=== PATIENT | male | born 1950 | race Caucasian/White ===

== ENCOUNTER → 2018-09-15 09:22 | Outpatient (CLI) | payer MEDICARE, SELFPAY ==
[2017-08-29 09:49] VITALS: BMI 27.2
[2018-09-15 10:25] LABS: Absolute Lymphocyte Count 1.43 X10^3/ul (0.83-4.51); Absolute Neutrophil Count 2.4 X10^3/uL (2.0-7.7); Basophil# 0.01 X10^3/uL; Basophil% 0.2 % (0-1); Eosinophil# 0.06 X10^3/uL; Eosinophils% 1.3 % (0-5); Hematocrit 44.7 % (40-54); Hemoglobin 15.1 g/dl (13.0-16.5); Lymphocyte # 1.43 X10^3/ul (4.0); Lymphocyte % 30.1 % (19-41); Mean Corp Hgb Conc 33.8 g/gl (32-36); Mean Corpuscular Volume 94.7 fL (80-94); Mean Platelet Vol. 9.6 fl (6.2-12.0); Monocyte# 0.81 X10^3/uL; Monocyte% 17.1 % (0-10); Neutrophil # 2.43 X10^3/uL (2.7-7.7); Neutrophil % 51.1 % (47-70); Platelet Count 91 K/mm3 (150-450); RBC Distribution Width CV 13.8 % (11.6-14.6); RBC Distribution Width SD 47.4 fl (35.1-43.9); Red Blood Count 4.72 M/mm3 (4.6-6.2); White Blood Count 4.8 K/mm3 (4.4-11.0)
[2018-09-15 10:27] LABS: POSITIVE COUNT NO; POSITIVE DIFFERENTIAL NO; POSITIVE MORPHOLOGY NO
[2018-09-15 10:54] LABS: AST(SGOT) 22 U/L (15-37); Alanine Aminotransfer ALT/SGPT 25 U/L (16-61); Albumin, Serum 3.2 g/dL (3.2-5.0); Alkaline Phosphatase 74 U/L (45-117); Anion Gap 6 (5-15); BUN 18 mg/dL (7-18); BUN/Creat Ratio 17.5 RATIO (10-20); Bilirubin, Direct 0.41 mg/dL (0.00-0.30); Calcium,Total 8.4 mg/dL (8.5-10.1); Chloride 105 mmol/L (98-107); Cholesterol 157 mg/dL (200); Creatinine, Serum 1.03 mg/dL (0.70-1.30); EST Glomerular Filtration Rate 77 mL/min (>60); Est Glom Filt Rate - Afr Amer 93 mL/min (>60); Globulin 3.6 g/dL (2.2-4.2); Glucose 90 mg/dL (74-106); High Density Lipoprotein 48 mg/dL; Potassium 4.7 mmol/L (3.5-5.1); Protein, Total 6.8 g/dL (6.4-8.2); Sodium Level 140 mmol/L (136-145); Triglycerides 91 mg/dL; Very Low Density Lipoprotein 18 mg/dL (5-40)
== END ==
PROVIDERS: Family Provider Family Medicine; PCP Family Medicine; Referring Provider Internal Medicine Cardiovascular Disease; Visit Provider Internal Medicine Cardiovascular Disease
DX: I10 Essential (primary) hypertension (principal); Z95.5 Presence of coronary angioplasty implant and graft; D69.6 Thrombocytopenia, unspecified; E78.5 Hyperlipidemia, unspecified; I25.10 Atherosclerotic heart disease of native coronary artery without angina pectoris; Z98.890 Other specified postprocedural states; Z86.79 Personal history of other diseases of the circulatory system; R55 Syncope and collapse; I48.0 Paroxysmal atrial fibrillation
CPT/HCPCS: 36415; 80048; 80061; 80076; 85025

== ENCOUNTER → 2019-10-08 06:35 | Outpatient (CLI) | payer MEDICARE, SELFPAY ==
[2018-09-17 10:00] VITALS: BMI 26.8
[2019-10-08 07:22] LABS: AST(SGOT) 21 U/L (15-37); Alanine Aminotransfer ALT/SGPT 26 U/L (16-61); Albumin, Serum 3.1 g/dL (3.2-5.0); Alkaline Phosphatase 70 U/L (45-117); Bilirubin, Direct 0.28 mg/dL (0.00-0.30); Cholesterol 181 mg/dL (200); Globulin 3.6 g/dL (2.2-4.2); High Density Lipoprotein 42 mg/dL; Protein, Total 6.7 g/dL (6.4-8.2); Triglycerides 123 mg/dL; Very Low Density Lipoprotein 25 mg/dL (5-40)
== END ==
PROVIDERS: PCP Family Medicine; Referring Provider Internal Medicine Cardiovascular Disease; Visit Provider Internal Medicine Cardiovascular Disease
DX: E78.00 Pure hypercholesterolemia, unspecified (principal)
CPT/HCPCS: 36415; 80061; 80076

== ENCOUNTER → 2021-02-16 07:31 | Outpatient (CLI) | payer MEDICARE, SELFPAY ==
[2020-03-27 10:26] VITALS: BMI 27.6
[2021-02-16 08:55] LABS: AST(SGOT) 19 U/L (15-37); Alanine Aminotransfer ALT/SGPT 24 U/L (16-61); Alkaline Phosphatase 65 U/L (45-117); Bilirubin, Direct 0.22 mg/dL (0.00-0.30); Cholesterol 172 mg/dL (200); Globulin 3.3 g/dL (2.2-4.2); High Density Lipoprotein 55 mg/dL; Protein, Total 6.3 g/dL (6.4-8.2); Triglycerides 57 mg/dL; Very Low Density Lipoprotein 11 mg/dL (5-40)
== END ==
PROVIDERS: PCP Family Medicine; Referring Provider Internal Medicine Cardiovascular Disease; Visit Provider Internal Medicine Cardiovascular Disease
DX: E78.00 Pure hypercholesterolemia, unspecified (principal)
CPT/HCPCS: 36415; 80061; 80076

== ENCOUNTER 2021-08-29 09:52 | Outpatient (CLI) | payer MEDICARE, SELFPAY ==
[2021-08-29 11:15] LABS: AST(SGOT) 19 U/L (15-37); Alanine Aminotransfer ALT/SGPT 28 U/L (16-61); Albumin, Serum 3.2 g/dL (3.2-5.0); Alkaline Phosphatase 79 U/L (45-117); Bilirubin, Direct 0.17 mg/dL (0.00-0.30); Cholesterol 182 mg/dL (200); Globulin 4.1 g/dL (2.2-4.2); High Density Lipoprotein 38 mg/dL; Protein, Total 7.3 g/dL (6.4-8.2); Triglycerides 114 mg/dL; Very Low Density Lipoprotein 23 mg/dL (5-40)
== END 2021-08-29 23:59 | disposition short-term general hospital (02) ==
PROVIDERS: PCP Family Medicine; Referring Provider Internal Medicine Cardiovascular Disease; Visit Provider Internal Medicine Cardiovascular Disease
DX: E78.00 Pure hypercholesterolemia, unspecified (principal)
CPT/HCPCS: 36415; 80061; 80076

== ENCOUNTER → 2022-03-25 | Outpatient (CLI) | payer MEDICARE, SELFPAY ==
[2022-03-25 11:00] LABS: AST(SGOT) 19 U/L (15-37); Alanine Aminotransfer ALT/SGPT 24 U/L (16-61); Albumin, Serum 3.2 g/dL (3.2-5.0); Alkaline Phosphatase 52 U/L (45-117); Bilirubin, Direct 0.24 mg/dL (0.00-0.30); Cholesterol 160 mg/dL (200); Globulin 3.5 g/dL (2.2-4.2); High Density Lipoprotein 43 mg/dL; Protein, Total 6.7 g/dL (6.4-8.2); Triglycerides 71 mg/dL; Very Low Density Lipoprotein 14 mg/dL (5-40)
== END | disposition home or self-care (01) ==
LOC: LAB 08:50
PROVIDERS: PCP Family Medicine; Referring Provider Nurse Practitioner Family; Visit Provider Nurse Practitioner Family
DX: E78.2 Mixed hyperlipidemia (principal)
CPT/HCPCS: 36415; 80061; 80076

== ENCOUNTER → 2022-03-27 | Outpatient (CLI) | payer MEDICARE, SELFPAY ==
--- NOTE | 2022-03-27 09:52 | STRESSREP ---
Stress Test Report Date: 03-27-2022 Procedure: Pharmacologic stress nuclear imaging study Indications: Chest pain; CAD; PCI; atrial fibrillation; status post EPS/RFA; hyperlipidemia; hypertension Consent: Per the patient Procedure: The patient underwent pharmacologic (Regadenoson 0.4mg ) evaluation with a peak heart rate of 77 beats per minute (51%predicted maximal heart rate) and a peak blood pressure of 150/82 mmHg. The baseline ECG demonstrated normal sinus rhythm. The peak pharmacologic ECG demonstrated no obvious ECG changes. There were no cardiac dysrhythmias pretest, during pharmacologic infusion, or recovery. There was no complaint of chest discomfort during pharmacologic infusion or recovery. The examination was discontinued secondary to completion of protocol. Impression: 1. Pharmacologic (Regadenoson) evaluation 2. Peak pharmacologic ECG with no obvious ECG changes. 3. There were no cardiac dysrhythmias pretest, during pharmacologic infusion, or recovery. 4. Nuclear images pending Myocardial perfusion imaging study: Technique: The patient was injected with 11.5 millicuries of technetium 99m Cardiolite and subsequently rest SPECT Cardiolite nuclear imaging was obtained in the horizontal long, vertical long, and short axis views. The patient underwent pharmacologic (Regadenoson) evaluation with a peak heart rate of 77 beats per minute (51% percent predicted maximal heart rate) and a peak blood pressure of 150/82 mmHg. The patient was injected with 33.8 millicuries of technetium 99m Cardiolite and subsequently stress SPECT Cardiolite nuclear imaging was obtained in the horizontal long, vertical long, and short axis views. A gated Cardiolite study at peak stress was obtained. Interpretation: Rest and stress SPECT Cardiolite nuclear imaging status post realignment, normalization, and attenuation correction demonstrate the appearance of extracardiac/gastrointestinal tracer uptake in inferior segments and otherwise relative uniform tracer uptake and myocardial perfusion appearing within normal limits. There is end systolic thickening and brightening. The gated Cardiolite study demonstrates myocardial thickening and inward wall motion. The reported LVEF is 58%. Impression: 1. Rest and stress SPECT Cardiolite nuclear imaging demonstrate myocardial perfusion changes compatible with effects of extracardiac/gastrointestinal tracer uptake and otherwise appear to demonstrate relative uniform tracer uptake and myocardial perfusion appearing within normal limits. 2. The gated Cardiolite study reports an LVEF of 58%. This note was generated with [employer] software. It may contain incorrect words, spelling, and punctuation that were not noted in checking the note before signing.
== END | disposition home or self-care (01) ==
LOC: CVS 06:01
PROVIDERS: PCP Family Medicine; Referring Provider Nurse Practitioner Family; Visit Provider Nurse Practitioner Family
DX: R07.9 Chest pain, unspecified (principal); E78.2 Mixed hyperlipidemia; I25.10 Atherosclerotic heart disease of native coronary artery without angina pectoris
CPT/HCPCS: 78452; 93017; A9500; A4216; J2785

== ENCOUNTER → 2022-10-26 | Outpatient (CLI) | payer MEDICARE, SELFPAY ==
[2022-10-26 10:17] LABS: AST(SGOT) 19 U/L (15-37); Alanine Aminotransfer ALT/SGPT 24 U/L (16-61); Albumin, Serum 3.2 g/dL (3.2-5.0); Alkaline Phosphatase 57 U/L (45-117); Bilirubin, Direct 0.16 mg/dL (0.00-0.30); Cholesterol 183 mg/dL (200); Globulin 3.5 g/dL (2.2-4.2); High Density Lipoprotein 49 mg/dL; Protein, Total 6.7 g/dL (6.4-8.2); Triglycerides 65 mg/dL; Very Low Density Lipoprotein 13 mg/dL (5-40)
== END | disposition home or self-care (01) ==
LOC: LAB 08:39
PROVIDERS: PCP Family Medicine; Visit Provider Nurse Practitioner Family
DX: E78.2 Mixed hyperlipidemia (principal)
CPT/HCPCS: 36415; 80061; 80076

== ENCOUNTER → 2024-09-08 | Outpatient (CLI) | payer MEDICARE, SELFPAY ==
[2024-09-08 11:57] LABS: AST(SGOT) 21 U/L (15-37); Alanine Aminotransfer ALT/SGPT 20 U/L (16-61); Albumin, Serum 3.2 g/dL (3.2-5.0); Alkaline Phosphatase 67 U/L (45-117); Bilirubin, Direct 0.27 mg/dL (0.00-0.30); Cholesterol 143 mg/dL (200); Globulin 3.8 g/dL (2.2-4.2); High Density Lipoprotein 57 mg/dL; Triglycerides 64 mg/dL; Very Low Density Lipoprotein 13 mg/dL (5-40)
== END | disposition home or self-care (01) ==
LOC: LAB 09:37
PROVIDERS: PCP Family Medicine; Referring Provider Nurse Practitioner Family; Visit Provider Nurse Practitioner Family
DX: E78.2 Mixed hyperlipidemia (principal); I25.10 Atherosclerotic heart disease of native coronary artery without angina pectoris
CPT/HCPCS: 36415; 80061; 80076

== ENCOUNTER → 2025-02-22 | Outpatient (CLI) | payer MEDICARE, SELFPAY ==
[2025-02-22 09:08] LABS: AST(SGOT) 21 U/L (<=37); Alanine Aminotransfer ALT/SGPT 15 U/L (<=46); Albumin, Serum 3.6 g/dL (3.4-4.8); Alkaline Phosphatase 68 U/L (40-129); Bilirubin, Direct 0.28 mg/dL (0.00-0.30); Cholesterol 141 mg/dL (<=200); Globulin 3.1 g/dL (2.2-4.2); Low Density Lipoprotein Calc. 79 mg/dL; Triglycerides 74 mg/dL; Very Low Density Lipoprotein 15 mg/dL (5-40); cholesterol:hdl ratio screen 2.99
--- OUTSIDE RECORDS SUMMARY | 2025-02-24 02:57 | XMS RPT_ITS | CCD ---
Author Organization [facility] CliniSyvt Care Team Providers Care Slip Cover Sewer Name Role Phone ARNOL Cm, Barb Burgos Unavailable Perla Arroyo Unavailable Unavailable Exten, Felipe E Unavailable Unavailable Exten, Felipe E Unavailable Unavailable Exten, Felipe E Unavailable Unavailable Exten, Felipe E Unavailable Unavailable Perla Arroyo Primary Care Provider Perla Arroyo Primary Care Provider Perla Arroyo DO Primary Care Provider Lewellen TUBE ROOM CASHIER, Pepe L Unavailable DeFinis, Harumi Y Unavailable Unavailable Martha Walter Unavailable Unavailable Martha Walter Unavailable Unavailable Tray Nathan MD Unavailable Perla Arroyo DO Primary Care Provider Lewellen TUBE ROOM CASHIER, Pepe L Unavailable Lewellen TUBE ROOM CASHIER, Pepe L Unavailable Dr. Perla Arroyo Primary Care Provider [phone] Dr. Perla Arroyo Referring Provider [phone] Roof [employer] DEAN, ARTS AND SCIENCES DEAN-C Sampson Gonzalez Attending Provider Roof [employer] DEAN, ARTS AND SCIENCES DEAN-C Sampson Gonzalez Referring Provider Roof [employer] DEAN, ARTS AND SCIENCES DEAN-C Sampson Gonzalez Other Provider Dr. Tray Nathan Attending Provider Dr. Perla Arroyo Primary Care Provider Barb Hamilton Attending Provider Unavailable Dr. Perla Arroyo Referring Provider Dr. Tray Nathan Attending Provider Lewellen TUBE ROOM CASHIER, Pepe L Unavailable [phone] Facundo TUBE ROOM CASHIER, Pepe L Unavailable [phone] Perla Arroyo DO Primary Care Provider PERLA ARROYO Primary Care Unavailable FACUNDO PEPE Jeronimo Referring Unavailable CRUZ, PERLA BENITEZ Primary Care Unavailable CRUZ, PERLA BENITEZ Primary Care Unavailable CRUZ, PERLA BENITEZ Primary Care Unavailable ERLIN ALCARAZ Attending Unavailable CRUZ, PERLA BENITEZ Primary Care Unavailable CRUZ, PERLA BENITEZ Primary Care Unavailable FACUNDOTYLER TAYLORMY L Attending Unavailable MORENITA ZHENG Attending Unavailable CRUZ, PERLA BENITEZ Primary Care Unavailable Cruz, Perla Referring Unavailable Barb Kay Attending Unavail able Cruz, Perla Primary Care Unavailable Cruz, Perla Referring Unavailable Barb Kay Attending Unavail able Perla Arroyo Primary Care Unavailable Cruz, Perla Referring Unavailable Barb Kay Attending Unavail able Perla Arroyo Primary Care Unavailable Natalie [employer] SCIENC[employer] DEANSampson Attending Unavailable Natalie [employer] SCIENCES DEANSampson Referring Unavailable Perla Arroyo Primary Care Unavailable Dr. Perla Arroyo DO Primary Care Provider Dr. Perla Arroyo DO Referring Provider Barb Kay Attending Provider [phone] Natalie SANZ-Sampson Travis Attending Provider Sampson Castillo Referring Provider Sivakumar SANZ-Suzie Travis Attending Provider Allergies Allergy Classification Reported Allergen(s) Allergy Type Date of Onset Reaction(s) Facility HMG-CoA Reductase Inhibitors (statins) (4 sources) atorvastatin Drug Allergy 0 Unknown [facility] Penicillins (antibiotic) (2 sources) Penicillins Drug Allergy 8 Rash [facility] (6 sources) atorvastatin Drug Allergy 1 Muscle pain [facility] Work Phone: [phone] (12 sources) penicillin Drug Allergy 1 Breaks out with a rash [facility] Work Phone: (6 sources) simvastatin Drug Allergy 1 Muscle pain [facility] Work Phone: (10 sources) Penicillins; Translations: [PENICILLINS] Propensity to adverse reactions to drug 8 [facility] (13 sources) atorvastatin; Translations: [ATORVASTATIN] Drug Allergy 0 Unknown [facility] (1 source) Penicillins Propensity to adverse reactions to drug 8 [facility] (16 sources) Simvastatin; Translations: [SIMVASTATIN] Drug Allergy 0 Unknown [facility] (5 sources) Penicillins Propensity to adverse reactions to drug 8 [facility] (4 sources) atorvastatin; Translations: [atorvastatin calcium] Drug Allergy 2 Unknown, Severe Myalgias and joint pain hips and shoulders [facility] (3 sources) Pravastatin Drug Allergy 2 Nausea, headaches, Muscle and joint pain in shoulders and hips, headaches [facility] (5 sources) Penicillins Propensity to adverse reactions to drug 8 [facility] (1 source) Penicillins Drug allergy (disorder) 5 [facility] (1 source) Pravastatin Drug Allergy 5 [facility] (1 source) Simvastatin Drug Allergy 5 [facility] Medications Current Medications Medication Drug Class(es) Dates Sig (Normalized) Sig (Original) glucosamine 500 mg oral tablet (2 sources) Start: 08-15-2005 take 1 capsule by mouth once daily, then take 500-400 capsules by mouth glucosamine-chondr oit-vit C-Mn (GLUCOSAMINE CHONDROITIN MAXSTR) 500-400 mg cap Take 500 mg by mouth daily. 08/15/2005 Active glucosamine-chondr oit-vit C-Mn (GLUCOSAMINE CHONDROITIN MAXSTR) 500-400 mg cap (5 sources) Start: 08-15-2005 take 1 capsule by mouth once daily glucosamine-chondr oit-vit C-Mn (GLUCOSAMINE CHONDROITIN MAXSTR) 500-400 mg cap Take 500 mg by mouth daily. 0 08/15/2005 Active lisinopril 10 mg oral tablet (20 sources) Angiotensin Converting Enzyme Inhibitor Start: 11-11-2024 take 1 tablet by mouth once daily Lisinopril 10 mg tablet Active 10 mg PO daily 90 3 November 11, 2024 9:51am Start: 09-09-2024 End: 11-11-2024 take 1 tablet by mouth once daily Lisinopril 2.5 mg tablet Discontinued 2.5 mg PO daily 90 3 September 09, 2024 1:00am November 11, 2024 9:51am Start: 08-31-2021 End: 09-09-2023 take 2 tablets by mouth once daily Lisinopril 20 mg tablet Discontinued 40 mg PO DAILY 180 April 08, 2022 1:23pm September 09, 2023 2:33pm Start: 08-31-2021 End: 04-08-2022 take 40 mg by mouth once daily Lisinopril Active 40 MG PO DAILY 180 April 08, 2022 1:23pm Start: 02-16-2021 End: 08-31-2021 take 1 tablet by mouth twice daily Lisinopril 20 mg tablet Discontinued 20 mg PO TWICE A DAY 180 March 28, 2021 3:54pm August 31, 2021 10:05am Start: 03-27-2020 End: 02-16-2021 take 1 tablet by mouth once daily Lisinopril 20 mg tablet Discontinued 20 mg PO DAILY 90 March 27, 2020 10:51am February 16, 2021 11:56am Start: 01-30-2020 take 2 tablets by mo uth once daily lisinopriL (PRINIVIL,ZESTRIL) 10 MG tablet Take 2 (two) tablets (20 mg total) by mouth daily . 0 01/30/2020 Active Start: 10-08-2019 End: 03-27-2020 take 1 tablet by mouth once daily Lisinopril 10 mg tablet Discontinued 10 mg PO DAILY 30 October 08, 2019 1:00am March 27, 2020 10:52am Start: 03-02-2012 End: 08-30-2014 take 1 tablet by mouth once daily LISINOPRIL 2.5 MG TABS One tablet by mouth daily LISINOPRIL [id number] Barb Cm PA-C Start: 08-29-2011 End: 11-19-2011 take 1 tablet by mouth once daily LISINOPRIL 2.5 MG TABS One tablet by mouth daily LISINOPRIL [id number] Regino Abdalla metoprolol tartrate 25 mg oral tablet (20 sources) beta-Adrenergic Zakia Start: 12-08-2024 End: 12-08-2024 take 1 tablet by mouth twice daily metoprolol tartrate (LOPRESSOR) 25 MG tablet Take 1 (one) tablet (25 mg total) by mouth 2 (two) times a day . 180 tablet 3 12/08/2024 Active Start: 01-26-2024 take 1 tablet by gilberto th once daily Metoprolol Succinate 25 mg tablet extended release 24 hr Active 25 mg PO DAILY 90 3 January 26, 2024 10:52am Start: 03-08-2019 End: 02-04-2023 metoprolol succinate (TOPROL -XL) 25 MG 24 hr tablet Start: 05-21-2018 End: 09-09-2023 take 1 tablet by mouth once daily Metoprolol Succinate 25 mg tablet extended release 24 hr Discontinued 25 mg PO DAILY 90 December 24, 2022 9:12am September 09, 2023 2:33pm Start: 11-24-2015 End: 08-29-2017 take 1 tablet by mouth once daily Metoprolol Succinate 25 MG tablet Discontinued 25 mg PO DAILY 30 0 November 24, 2015 12:00am August 29, 2017 11:19am Start: 03-17-2014 End: 03-28-2014 take 1 tablet by mouth once daily TOPROL XL 25 MG [id number] One tablet by mouth daily METOPROLOL SUCCINATE [id number] Tray Nathan MD Start: 03-02-2012 End: 03-08-2013 take 1 tablet by mouth twice daily TOPROL XL 50 MG [id number] (ER) One tablet by mouth twice daily METOPROLOL SUCCINATE [id number] Wiley Dailey MD Start: 08-29-2011 End: 11-19-2011 take 1 tablet by mouth twice daily METOPROLOL SUCCINATE ER 50 MG [id number] One tablet by mouth twice daily METOPROLOL SUCCINATE [id number] Regino Abdalla Start: 03-11-2011 take 1 tablet by gilberto th once daily METOPROLOL SUCCINATE ER 50 MG [id number] One tablet by mouth daily METOPROLOL SUCCINATE [id number] Flor Harper take 1 tablet by gilberto once daily metoprolol tartrate (LOPRESSOR) 25 MG tablet Take 1 (one) tablet (25 mg total) by mouth once daily . Active Completed/Discontinued Medications Medication Drug Class(es) Dates Sig (Normalized) Sig (Original) amLODIPine 5 mg oral tablet (7 sources) Dihydropyridine Calcium Channel Zakia Start: 02-04-2023 End: 01-29-2024 take 1 tablet by mouth once daily amLODIPine (NORVASC) 5 MG tablet Take 1 (one) tablet (5 mg total) by mouth daily . 90 tablet 3 02/04/2023 01/29/2024 Discontinued (Patient's Request) Start: 02-21-2022 End: 10-28-2022 take 1 tablet by mouth once daily Amlodipine 2.5 mg tablet Discontinued 2.5 mg PO DAILY 17 07February 21, 2022 12:00am October 28, 2022 2:24pm Start: 08-31-2021 End: 02-21-2022 take 1 tablet by mouth once daily Amlodipine 5 mg tablet Discontinued 5 mg PO DAILY 17 07August 31, 2021 1:00am February 21, 2022 8:39am Antiarthritic Combination No.2 (2 sources) Start: 11-23-2015 End: 02-21-2022 take 1 tablet by mouth once daily Antiarthritic Combination No.2 Discontinued 1 TABLET PO DAILY November 23, 2015 12:00am February 21, 2022 8:40am Antiarthritic Combination No.2 900 MG tablet (1 source) Start: 11-23-2015 End: 02-21-2022 take 1 tablet by mouth once daily Antiarthritic Combination No.2 900 MG tablet Discontinued 1 {tbl} PO DAILY November 23, 2015 12:00am February 21, 2022 8:40am aspirin 81 mg delayed release oral tablet (20 sources) Platelet Aggregation Inhibitor, Nonsteroidal Anti-inflammatory Drug Start: 01-28-2011 End: 11-19-2011 take 1 tablet by mouth once daily ECOTRIN LOW STRENGTH 81 MG TBEC One tablet by mouth daily ASPIRIN [id number] Regino Abdalla End: 01-05-2013 take 1 tablet by mouth once daily ASPIRIN 325 MG TABS One tablet by mouth daily ASPIRIN [id number] Shruthi Bunch RN End: 03-08-2013 take 1 tablet by mouth once daily ASPIRIN 81 MG TABS One tablet by mouth daily ASPIRIN [id number] Shaista Caraballo MD GLUCOSAMINE-CHONDROITIN CAPS (10 sources) Start: 02-28-2014 take 1 tablet by mouth once daily GLUCOSAMINE-CHONDROITIN CAPS One tablet by mouth daily GLUCOSAMINE-CHONDROITIN CAPS [id number] Jyotsna Ramirez RN Start: 02-28-2014 take 1 tablet by gilberto th once daily GLUCOSAMINE-CHONDROITIN CAPS One tablet by mouth daily GLUCOSAMINE-CHONDROITIN CAPS [id number] Jyotsna Ramirez RN Start: 08-15-2005 End: 01-29-2024 take 1 capsule by mouth once daily [id number] C-Mn 500-400 m g cap Take 500 mg by mouth daily. 0 08/15/2005 01/29/2024 Discontinued (Patient's Request) cyanocobalamin/folic ac/vit B6 (FOLIC ACID-VIT B6-VIT B12 ORAL) (11 sources) End: 01-29-2024 cyanocobalamin/folic ac/vit B6 (FOLIC ACID-VIT B6-VIT B12 ORAL) Take by mouth once daily. 0 01/29/2024 Discontinued (Patient's Request) cyanocobalamin/f olic ac/vit B6 (FOLIC ACID-VIT B6-VIT B12 ORAL) Take by mouth once daily. 0 Active cyanocobalamin/f olic ac/vit B6 (FOLIC ACID-VIT B6-VIT B12 ORAL) Take by mouth once daily. Active ezetimibe 10 mg oral tablet (20 sources) Dietary Cholesterol Absorption Inhibitor Start: 05-26-2024 End: 05-26-2025 take 1 mg by mouth once daily Ezetimibe 10 mg tablet Discontinued mg PO DAILY September 09, 2024 1:00am September 09, 2024 11:13am Start: 01-28-2011 End: 08-31-2021 take 1 tablet by mouth at bedtime Ezetimibe 10 mg tablet Discontinued 10 mg PO AT BEDTIME 90 3 September 02, 2018 1:56pm October 08, 2019 10:25am fenofibrate 54 mg oral tablet (8 sources) Peroxisome Proliferator Receptor alpha Agonist Start: 02-21-2022 End: 01-29-2024 take 1 tablet by mouth once daily fenofibrate 54 MG tablet Take 1 (one) tablet (54 mg total) by mouth daily . 0 12/24/2022 01/29/2024 Discontinued (Patient's Request) ferrous sulfate (12 sources) Start: 03-11-2011 End: 08-29-2011 FERROUS SULFATE 324 MG TABS One tablet by mouth three X daily FERROUS SULFATE Wiley Dailey MD Start: 03-11-2011 FERROUS SULFAT E 324 MG TABS One tablet by mouth three X daily FERROUS SULFATE Flor Harper Start: 03-11-2011 End: 08-29-2011 FERROUS SULFATE 324 MG TABS One tablet by mouth three X daily FERROUS SULFATE Flor Harper fluticasone propionate 0.05 mg/actuat metered dose nasal spray (12 sources) Corticosteroid End: 03-08-2013 take 2 spray(s) nasal route once daily FLONASE 50 MCG/ACT SUSP 2 sprays each nostril qd FLUTICASONE PROPIONATE [id number] Heather Murillo LPN folic acid 1 mg oral tablet (3 sources) Start: 11-23-2015 End: 09-17-2018 take 2 tablets by mouth once daily Folic Acid 1 MG tablet Discontinued 2 mg PO DAILY@08November 23, 2015 12:00am September 17, 2018 10:58am Start: 11-23-2015 End: 09-17-2018 take 2 mg by mouth once daily Folic Acid Discontinued 2 MG PO DAILY@799November 23, 2015 12:00am September 17, 2018 10:58am folic acid 2.2 mg / vitamin b12 1 mg / vitamin b6 25 mg oral tablet (15 sources) Vitamin B12 Start: 09-17-2018 End: 10-28-2022 Folic Acid-Vit B6-Vit B12 (Folgard Rx) 2.2-25-1 mg tablet Discontinued 1 {tbl} PO DAILY September 17, 2018 1:00am October 28, 2022 2:23pm Start: 02-28-2014 take 1 tablet by gilberto once daily FOLGARD TABS One tablet by mouth daily FOLIC [id number] Jyotsna Ramirez RN Start: 02-28-2014 take 1 tablet by gilberto th once daily FOLGARD TABS One tablet by mouth daily FOLIC [id number] Judith Ashley RN take 1 tablet by gilberto th once daily FOLGARD TABS 1 po qd FOLIC [id number] Heather Murillo LPN hydroCHLOROthiazide 12.5 mg oral tablet (9 sources) Thiazide Diuretic Start: 05-04-2024 End: 05-04-2025 take 1 tablet by mouth once daily Hydrochlorothiazide 12.5 mg tablet Discontinued 12.5 mg PO DAILY November 11, 2024 9:22am November 11, 2024 9:54am 24 hr isosorbide mononitrate 30 mg extended release oral tablet (12 sources) Nitrate Vasodilator Start: 01-28-2011 End: 03-08-2013 take 1 tablet by mouth once daily ISOSORBIDE MONONITRATE ER 30 MG [id number] One tablet by mouth daily (Imdur) ISOSORBIDE MONONITRATE [id number] Wiley Dailey MD itraconazole 200 mg oral tablet (2 sources) Azole Antifungal Start: 03-09-2020 End: 02-01-2021 take 1 tablet by mouth once daily itraconazole 200 mg Tab Indications: Acute myeloid leukemia in remission (HCC) Take 200 mg by mouth daily . 30 tablet 2 03/09/2020 02/01/2021 Discontinued (Patient's Request) mometasone furoate 0.05 mg/actuat metered dose nasal spray (12 sources) Corticosteroid End: 03-08-2013 take 2 spray(s) nasal route once daily NASONEX 50 MCG/ACT SUSP 2 sprays each nostril qd MOMETASONE FUROATE [id number] Shaista Caraballo MD montelukast 10 mg oral tablet (20 sources) Leukotriene Receptor Antagonist Start: 10-28-2022 End: 01-29-2024 take 1 tablet by mouth once daily as needed montelukast (SINGULAIR) 10 mg tablet TAKE 1 TABLET BY MOUTH ONCE DAILY NEEDED FOR ALLERGIES 0 01/19/2023 01/29/2024 Discontinued (Patient's Request) Start: 08-04-2015 End: 02-28-2017 take 1 tablet by mouth once daily MONTELUKAST SODIUM 10 MG TABS One tablet by mouth daily MONTELUKAST SODIUM [id number] Perla Arroyo DO Start: 01-16-2015 End: 02-27-2015 take 1 tablet by mouth once daily as needed MONTELUKAST SODIUM 10 MG TABS One tablet by mouth daily as needed MONTELUKAST SODIUM [id number] Tray Nathan MD End: 03-08-2013 take 1 tablet by mouth once daily as needed SINGULAIR 10 MG TABS 1 po daily prn MONTELUKAST SODIUM [id number] Shaista Caraballo MD moxifloxacin 400 mg oral tablet (18 sources) Quinolone Antimicrobial Start: 08-16-2015 End: 08-30-2015 take 1 tablet by mouth once daily AVELOX 400 MG TABS One tablet by mouth daily MOXIFLOXACIN HCL [id number] Perla Lan Cruz BERGMAN Start: 08-04-2015 End: 08-14-2015 take 1 tablet by mouth once daily AVELOX 400 MG TABS One tablet by mouth daily MOXIFLOXACIN HCL [id number] Perla Lan Cruz DO nebivolol 5 mg oral tablet (12 sources) End: 03-02-2012 take 1 tablet by mouth once daily in the morning BYSTOLIC 5 MG TABS One tablet by mouth daily in AM NEBIVOLOL HCL [id number] Wiley Dailey MD 24 hr niacin 500 mg extended release oral tablet (20 sources) Nicotinic Acid Start: 09-02-2018 End: 08-31-2021 take 1 tablet by mouth every twenty-four hours at bedtime Niacin 500 mg tablet extended release 24 hr Discontinued 500 mg PO AT BEDTIME 90 3 September 02, 2018 2:00pm August 31, 2021 10:05am Start: 08-23-2013 take 1 tablet by gilberto th once daily NIASPAN 500 MG CR-TABS One tablet by mouth daily NIACIN (ANTIHYPERLIPIDEMIC) [id number] Tray Nathan MD Start: 01-28-2011 End: 03-08-2013 take 1 tablet by mouth once daily NIASPAN 500 MG CR-TABS One tablet by mouth daily NIACIN (ANTIHYPERLIPIDEMIC) [id number] Tray Nathan MD Start: 01-28-2011 End: 08-31-2021 take 1 tablet by mouth at bedtime Niacin 500 MG tablet Discontinued 500 mg PO AT BEDTIME March 14, 2014 12:00am September 02, 2018 2:04pm nitroglycerin 0.4 mg sublingual tablet (20 sources) Nitrate Vasodilator Start: 10-28-2022 nitroGLYCE RIN (NITROSTAT) 0.4 MG SL tablet TAKE 1 TABLET SUBLINGUALLY EVERY 5 TO 15 MINUTES NEEDED FOR CHEST PAIN 10/28/2022 Active Start: 08-29-2017 End: 09-09-2023 Nitroglycerin 0.4 mg tablet, sublingual Discontinued 0.4 mg SL every 5 to 15 minutes as needed for chest pain 12 10October 28, 2022 2:24pm September 09, 2023 2:33pm Start: 08-29-2017 End: 10-28-2022 Nitroglycerin Active 0.4 MG SL every 5 to 15 minutes October 28, 2022 2:24pm Start: 06-13-2016 NITROSTAT 0.4 MG SUBL 1 tablet under tongue every 5 min up to 3 X NITROGLYCERIN [id number] Barb Cm PA-C Start: 01-28-2011 End: 11-19-2011 NITROSTAT 0.4 MG SUBL 1 tabl et under tongue every 5 min up to 3 X NITROGLYCERIN [id number] Regino Abdalla omeprazole 20 mg delayed release oral capsule (12 sources) Proton Pump Inhibitor Start: 03-11-2011 End: 11-19-2011 take 1 tablet by mouth twice daily PRILOSEC 20 MG CPDR One tablet by mouth twice daily until 03-01-11 OMEPRAZOLE [id number] Regino Abdalla pravastatin sodium 40 mg oral tablet (20 sources) HMG-CoA Reductase Inhibitor Start: 08-31-2021 End: 01-23-2022 take 1 tablet by mouth once daily Pravastatin 40 mg tablet Discontinued 40 mg PO DAILY 30 August 31, 2021 1:00am January 23, 2022 9:45am Start: 01-28-2011 End: 08-31-2021 take 1 tablet by mouth at bedtime Pravastatin 80 mg tablet Discontinued 80 mg PO AT BEDTIME 90 September 02, 2018 2:04pm October 08, 2019 10:25am predniSONE 20 mg oral tablet (12 sources) End: 03-08-2013 PREDNISONE 20 MG TABS PREDNISONE [id number] Heather Murillo LPN ramipril 2.5 mg oral capsule (20 sources) Angiotensin Converting Enzyme Inhibitor Start: 11-19-2011 End: 03-02-2012 take 1 tablet by mouth once daily in the morning RAMIPRIL 2.5 MG CAPS One tablet by mouth daily in AM RAMIPRIL [id number] Regino Abdalla Start: 01-28-2011 End: 11-19-2011 take 1 tablet by mouth once daily ALTACE 1.25 MG CAPS One tablet by mouth daily RAMIPRIL [id number] Flor Harper SOTALOL HCL (12 sources) Antiarrhythmic Start: 01-28-2011 End: 08-29-2011 take 1 tablet by mouth twice daily SOTALOL HCL 160 MG TABS One tablet by mouth twice daily SOTALOL HCL [id number] Wiley Dailey MD Start: 01-28-2011 take 1 tablet by gilberto twice daily SOTALOL HCL 160 MG TABS One tablet by mouth twice daily SOTALOL HCL [id number] Flor Harper Start: 01-28-2011 End: 08-29-2011 take 1 tablet by mouth twice daily SOTALOL HCL 160 MG TABS One tablet by mouth twice daily SOTALOL HCL [id number] Flor Harper tadalafil 10 mg oral tablet (20 sources) Phosphodiesterase 5 Inhibitor End: 03-08-2013 take 1 tablet by mouth once daily CIALIS 20 MG TABS 1 po qd TADALAFIL [id number] Heather Murillo LPN End: 03-08-2013 take 1 tablet by mouth once daily CIALIS 10 MG TABS 1 po qd TADALAFIL [id number] Heather Murillo POLE CUTTER traZODone hydrochloride 50 mg oral tablet (12 sources) Serotonin Reuptake Inhibitor End: 03-08-2013 take 1 tablet by mouth once at bedtime TRAZODONE HCL 50 MG TABS 1 po q hs TRAZODONE HCL [id number] Heather L Chidi POLE CUTTER 0.65 ml varicella-zoster virus vaccine live (oka-merck) strain [id number] unt/ml injection (4 sources) Start: 08-04-2015 End: 06-13-2016 ZOSTAVAX 24850 UNT/0.65ML SUSR One Injection for shingles prevention to be given at pharmacy ZOSTER VACCINE LIVE [id number] Barb Cm PA-C Vit D3-Folic Stjg-F8-D1-B12 (Folgard) 2,000-800-0.32 unit-mcg-mg tablet (1 source) Start: 08-29-2017 End: 08-29-2017 Vit D3-Folic Xava-Q5-M7-B12 (Folgard) 2,000-800-0.32 unit-mcg-mg tablet Discontinued 1 {tbl} PO daily August 29, 2017 1:00am August 29, 2017 11:19am vit D3-folic acid-vit B2-B6-B12 2,000 unit-800 mcg-0.32 mg tablet (2 sources) Start: 08-29-2017 End: 08-29-2017 take 1 tablet by mouth once daily vit D3-folic acid-vit B2-B6-B12 2,000 unit-800 mcg-0.32 mg tablet Discontinued 1 TABLET PO daily August 29, 2017 1:00am August 29, 2017 11:19am warfarin sodium 1 mg oral tablet (20 sources) Vitamin K Antagonist Start: 01-28-2011 End: 08-29-2011 WARFARIN SODIUM 1 MG TABS take as directed WARFARIN SODIUM [id number] Jyotsna Ramirez RN Start: 01-28-2011 End: 08-29-2011 COUMADIN 3 MG TABS Take as d irected WARFARIN SODIUM [id number] Wiley Dailey MD Start: 01-28-2011 End: 08-29-2011 COUMADIN 4 MG TABS Take as d irected WARFARIN SODIUM [id number] Wiley Dailey MD Problems Active Problems Problem Classification Problem Date Documented Date Episodic/Chronic Cardiac dysrhythmias (20 sources) Atrial fibrillation; Translations: [Paroxysmal atrial fibrillation] Onset: 01-28-2011 01-28-2011 Chronic Coagulation and hemorrhagic disorders (20 sources) Thrombocytopenic disorder; Translations: [Platelet count below reference range] Onset: 03-08-2013 03-09-2013 Chronic Coronary atherosclerosis and other heart disease (20 sources) Coronary arteriosclerosis; Translations: [Coronary atherosclerosis] Onset: 01-28-2011 Resolved: 01-16-2015 01-28-2011 Chronic Comment on above: status post stent PTCA and bare metal stent to LAD December 2008 Disorders of lipid metabolism (20 sources) Hyperlipidemia; Translations: [Hyperlipidemia, unspecified] Onset: 06-30-2012 Resolved: 01-16-2015 06-30-2012 Chronic Essential hypertension (20 sources) Hypertensive disorder; Translations: [Essential (primary) hypertension] Onset: 01-28-2011 01-28-2011 Chronic Fluid and electrolyte disorders (8 sources) Hyperkalemia; Translations: [Hyperkalemia] Onset: 01-29-2024 02-04-2023 Episodic Hepatitis (1 source) Chronic hepatitis C; Translations: [Chronic viral hepatitis C] 02-04-2023 Chronic Leukemias (20 sources) Acute myeloid leukemia in remission; 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, in remission] Onset: 08-18-1980 Chronic Nonspecific chest pain (18 sources) Precordial pain; Translations: [Precordial pain] Onset: 01-28-2011 Resolved: 01-16-2015 01-16-2015 Episodic Other liver diseases (1 source) Inflammatory disease of liver; Translations: [Inflammatory liver disease, unspecified] 05-04-2024 Chronic Other liver diseases (2 sources) Inflammatory liver disease, unspecified; Translations: [Inflammatory liver disease, unspecified] Onset: 05-04-2024 Chronic Other nutritional; endocrine; and metabolic disorders (6 sources) Hyperbilirubinemia; Translations: [Other disorders of bilirubin metabolism] Onset: 03-08-2013 03-09-2013 Chronic Other upper respiratory disease (6 sources) Allergic rhinitis; Translations: [Allergic rhinitis, unspecified] Onset: 01-16-2015 01-16-2015 Chronic Residual codes; unclassified (5 sources) History of radiofrequency ablation operation for arrhythmia; Translations: [Other specified postprocedural states] 08-29-2017 Episodic Comment on above: December 2008 EP; Ablatio n of a-fib flutter 04/17/[address] Siddiqui @ [facility] Residual codes; unclassified (2 sources) Other specified postprocedural states; Translations: [Personal history of surgery to heart and great vessels, presenting hazards to health] Episodic Syncope (15 sources) Syncope and collapse; Translations: [Syncope and collapse] Onset: 01-28-2011 Resolved: 01-16-2015 01-28-2011 Episodic Unclassified (2 sources) Long-term drug therapy; Translations: [Other business planner (current) drug therapy] Onset: 01-28-2011 01-28-2011 Past or Other Problems Problem Classification Problem Date Documented Da te Episodic/Chronic Abdominal hernia (12 sources) Inguinal hernia; Translations: [Unilateral inguinal hernia, without obstruction or gangrene, not specified as recurrent] Onset: 11-19-2011 Resolved: 12-02-2011 11-19-2011 Episodic Cardiac dysrhythmias (12 sources) Palpitations; Translations: [Palpitations] Onset: 01-28-2011 Resolved: 01-16-2015 01-28-2011 Episodic Coronary atherosclerosis and other heart disease (13 sources) Coronary angioplasty status; Translations: [Percutaneous transluminal coronary angioplasty status] Onset: 08-18-2008 01-28-2011 Episodic Comment on above: PTCA/BMS to LAD December 2008 Malaise and fatigue (14 sources) Fatigue; Translations: [Other fatigue] Onset: 01-30-2023 01-30-2023 Episodic Other aftercare (4 sources) Long-term drug therapy; Translations: [Other business planner (current) drug therapy] Onset: 01-28-2011 01-28-2011 Episodic Other circulatory disease (6 sources) Hemorrhage, not elsewhere classified; Translations: [Bleeding skin] Onset: 04-04-2015 Resolved: 04-08-2015 04-04-2015 Episodic Other connective tissue disease (1 source) Pain in toe; Translations: [Pain due to onychomycosis of toenails of both feet] Episodic Other nutritional; endocrine; and metabolic disorders (8 sources) Finding of body mass index; Translations: [Body mass index (BMI) 27.0-27.9, adult] Onset: 08-30-2014 06-13-2016 Episodic Other screening for suspected conditions (not mental disorders or infectious disease) (15 sources) Abnormal result of cardiovascular function study, unspecified; Translations: [Platelet count below reference range] Onset: 01-28-2011 01-28-2011 Episodic Other upper respiratory infections (12 sources) Acute sinusitis; Translations: [Upper respiratory infection] Onset: 04-04-2015 Resolved: 08-14-2015 08-06-2015 Episodic Residual codes; unclassified (20 sources) Family history of stroke; Translations: [FH: Raised blood lipids] Onset: 04-09-2011 Resolved: 01-16-2015 08-30-2014 Episodic Residual codes; unclassified (8 sources) FH: Raised blood lipids; Translations: [Family history of other endocrine, nutritional and metabolic diseases] Resolved: 01-16-2015 01-16-2015 Episodic Residual codes; unclassified (8 sources) FH: Hypertension; Translations: [Family history of ischemic heart disease and other diseases of the circulatory system] Resolved: 01-16-2015 01-16-2015 Episodic Residual codes; unclassified (4 sources) Edema; Translations: [Edema, unspecified] Onset: 04-09-2011 04-09-2011 Episodic Residual codes; unclassified (14 sources) H/O: chemotherapy; Translations: [Personal history of antineoplastic chemotherapy] Onset: 01-30-2023 01-30-2023 Episodic Results Test Name Value Interpretation Reference Range Facility Bilirubin directOrdered By: Sampson Estrada on 02-22-2025 Bilirubin.direct [Mass/Vol] 0.28 mg/dL 0.00-0.30 [facility] Bilirubin, totalOrdered By: Sampson Estrada on 02-22-2025 Bilirubin [Mass/Vol] 0.75 mg/dL 0.00-1.30 [facility] Calculated very low density lipoprotein (VLDL) cholesterol measurementOrdered By: Sampson Estrada on 02-22-2025 Calculated very low density lipoprotein (VLDL) cholesterol measurement 15 mg/dL 5-40 [facility] LDL calc ser/plasOrdered By: Sampson Estrada on 02-22-2025 Cholesterol in LDL [Mass/Vol] 79 mg/dL [facility] Comment on above: Wouiqdkscr=116-417 m g/dL & Higher Mjnq=157 mg/dL or greater Laboratory - Chemistry and C hemistry - challengeOrdered By: Sampson Estrada on 02-22-2025 AST [Catalytic activity/Vol] 21 U/L <38 [facility] Screening total cholesterol/ high density lipoprotein (HDL) cholesterol ratioOrdered By: Sampson Estrada on 02-22-2025 Cholesterol.total/Cho lesterol in HDL [Mass ratio] 2.99 {ratio} [facility] Serum globulin measurementOr dered By: Sampson Estrada on 02-22-2025 Globulin (S) [Mass/Vol] 3.1 g/dL 2.2-4.2 [facility] Serum or plasma alanine guo otransferase (ALT) measurementOrdered By: Sampson Estrada on 02-22-2025 ALT [Catalytic activity/Vol] 15 U/L <47 [facility] Serum or plasma albumin antonino urement (mass/volume)Ordered By: Sampson Estrada on 02-22-2025 Albumin [Mass/Vol] 3.6 g/dL 3.4-4.8 [facility] Serum or plasma alkaline raulito sphatase measurementOrdered By: Sampson Estrada on 02-22-2025 ALP [Catalytic activity/Vol] 68 U/L 40-129 [facility] Serum or plasma cholesterol in HDL measurement (mass/volume)Ordered By: Sampson Estrada on 02-22-2025 Cholesterol in HDL [Mass/Vol] 47 mg/dL >40 [facility] Comment on above: National Cholesterol Education Program (NCEP) guidelines:<40 mg/dL: Low HDL-cholesterol (major risk factor for CHD)>= 60 mg/dL: High HDL-cholesterol (negative risk factor for CHD)HDL-cholesterol is affected by a number of factors, e.g. smoking, exercise, hormones, sex and age. Serum or plasma cholesterol measurement (mass/volume)Ordered By: Sampson Estrada on 02-22-2025 Cholesterol [Mass/Vol] 141 mg/dL <201 [facility] Comment on above: Cholesterol level, D esirable <200 mg/dLBorderline high cholesterol 200-239 mg/dLHigh cholesterol >=240 mg/dLRecommendations of the NCEP Adult Treatment Panel for the following risk-cutoff thresholds for the [place] population. Total proteinOrdered By: Dwayne Estrada on 02-22-2025 Protein [Mass/Vol] 6.7 g/dL 5.9-8.4 [facility] Triglycerides measurementOrd ered By: Sampson Natalie on 02-22-2025 Triglyceride [Mass/Vol] 74 mg/dL <199 [facility] Comment on above: The drugs N-Acetylcy steine and Metamizole may falsely depress this assay. Normal range: <150 mg/dLBorderline High: 150-199 mg/dLHigh: 200-499 mg/dLVery High: >500 mg/dL BASIC METABOLIC PANELon 01-16 Anion gap [Moles/Vol] 11 mmol/L Normal 10-20 [facility] Comment on above: Order Comment: [facility] has implemented the eGFR calculation approach that does not have a coefficient for race that conforms to the NKF-ASN Task Force Recommendations. Performed By: #### [id number] #### LAB [address] [address] Chucho Magdaleno M.D. [id number] Calcium [Mass/Vol] 9.0 mg/dL Normal 8.4-10.2 [facility] Comment on above: Order Comment: [facility] has implemented the eGFR calculation approach that does not have a coefficient for race that conforms to the NKF-ASN Task Force Recommendations. Performed By: #### [id number] #### LAB [address] [address] Chucho Magdaleno M.D. [id number] Chloride [Moles/Vol] 102 mmol/L Normal 98-108 [facility] Comment on above: Order Comment: [facility] has implemented the eGFR calculation approach that does not have a coefficient for race that conforms to the NKF-ASN Task Force Recommendations. Performed By: #### 4 [id number] #### LAB [address] [address] Chucho Magdaleno M.D. [id number] Creatinine [Mass/Vol] 1.38 mg/dL High 0.80-1.30 [facility] Comment on above: Order Comment: [facility] has implemented the eGFR calculation approach that does not have a coefficient for race that conforms to the NKF-ASN Task Force Recommendations. Performed By: #### 4 [id number] #### LAB [address] [place], [place] [address] Chucho Magdaleno M.D. [id number] EGFR 54 mL/min/1.73 m2 Low >=60 [facility] Comment on above: Order Comment: [facility] has implemented the eGFR calculation approach that does not have a coefficient for race that conforms to the NKF-ASN Task Force Recommendations. Result Comment: Rust mated GFR was calculated using the 2020 CKD-EPI creatinine equation. Performed By: #### 4 [id number] #### LAB [address] [address] Chucho Magdaleno M.D. [id number] Glucose [Mass/Vol] 100 mg/dL High 65-99 [facility] Comment on above: Order Comment: [facility] has implemented the eGFR calculation approach that does not have a coefficient for race that conforms to the NKF-ASN Task Force Recommendations. Performed By: #### 4 [id number] #### LAB [address] [address] Chucho Magdaleno M.D. [id number] HCO3 (Bld) [Moles/Vol] 29 mmol/L Normal 21-32 [facility] Comment on above: Order Comment: [facility] has implemented the eGFR calculation approach that does not have a coefficient for race that conforms to the NKF-ASN Task Force Recommendations. Performed By: #### 4 [id number] #### LAB [address] [address] Chucho Magdaleno M.D. [id number] Potassium [Moles/Vol] 5.4 mmol/L High 3.5-5.1 [facility] Comment on above: Order Comment: [facility] has implemented the eGFR calculation approach that does not have a coefficient for race that conforms to the NKF-ASN Task Force Recommendations. Performed By: #### 4 [id number] #### LAB [address] [address] Chucho Magdaleno M.D. [id number] Sodium [Moles/Vol] 137 mmol/L Normal 135-145 [facility] Comment on above: Order Comment: [facility] has implemented the eGFR calculation approach that does not have a coefficient for race that conforms to the NKF-ASN Task Force Recommendations. Performed By: #### 4 [id number] #### LAB [address] [place] [address] Chucho Magdaleno M.D. [id number] Urea nitrogen [Mass/Vol] 29 mg/dL High 8-25 [facility] Comment on above: Order Comment: [facility] has implemented the eGFR calculation approach that does not have a coefficient for race that conforms to the NKF-ASN Task Force Recommendations. Performed By: #### 4 [id number] #### LAB [address] [place] [address] Chucho Magdaleno M.D. [id number] Urea nitrogen/Creatinine [Mass ratio] 21.0 mg/mg High 10.0-20.0 [facility] Comment on above: Order Comment: [facility] has implemented the eGFR calculation approach that does not have a coefficient for race that conforms to the NKF-ASN Task Force Recommendations. Performed By: #### 4 [id number] #### LAB [address] [place] [address] Chucho Magdaleno M.D. [id number] CBC WITH AUTO DIFFERENTIALon 02-02-2025 AUTO NRBC 0.0 % Normal [facility] Comment on above: Performed By: #### L [id number] #### [facility] [address] [address] Chucho Magdaleno M.D. [id number] AUTO NRBC ABS COUNT 0.00 K/mcL Normal 0.00-0.00 [facility] Comment on above: Performed By: #### L [id number] #### [facility] [address] [place] [address] Chucho Magdaleno M.D. [id number] Erythrocyte distribution width (RBC) [Ratio] 13.7 % Normal 11.6-14.8 [facility] Comment on above: Performed By: #### L [id number] #### [facility] [address] [address] Chucho Magdaleno M.D. [id number] Hematocrit (Bld) [Volume fraction] 41.9 % Normal 41.0-53.0 [facility] Comment on above: Performed By: #### L [id number] #### [facility] [address] [address] Chucho Magdaleno M.D. [id number] Hemoglobin (Bld) [Mass/Vol] 14.4 g/dL Normal 13.5-17.5 [facility] Comment on above: Performed By: #### L [id number] #### LAB [address] [place] [address] Chucho Magdaleno M.D. [id number] MCH (RBC) [Entitic mass] 32.1 pg Normal 26.0-34.0 [facility] Comment on above: Performed By: #### L [id number] #### LAB [address] [place] [address] Chuhco Magdaleno M.D. [id number] MCV (RBC) [Entitic vol] 93.3 fL Normal 80.0-100.0 [facility] Comment on above: Performed By: #### L [id number] #### LAB [address] [place] [address] Chucho Magdaleno M.D. [id number] MEAN CORPUSCULAR HEMOGLOBIN CONC 34.4 g/dL Normal 31.0-37.0 [facility] Comment on above: Performed By: #### L [id number] #### LAB [address] [place] [address] Chucho Magdaleno M.D. [id number] Platelet mean volume (Bld) [Entitic vol] 10.1 fL Normal 9.4-12.4 [facility] Comment on above: Performed By: #### L [id number] #### LAB [address] [place] [address] Chucho Magdaleno M.D. [id number] Platelets (Bld) [#/Vol] 106 10*3/uL Low 150-400 [facility] Comment on above: Performed By: #### L [id number] #### LAB [address] [place] [address] Chucho Magdaleno M.D. [id number] RBC (Bld) [#/Vol] 4.49 10*6/uL Low 4.50-5.90 [facility] Comment on above: Performed By: #### L [id number] #### LAB [address] [address] Chucho Magdaleno M.D. [id number] WBC (Bld) [#/Vol] 5.59 10*3/uL Normal 4.50-11.00 [facility] Comment on above: Performed By: #### L [id number] #### LAB [address] [place] [address] Chucho Magdaleno M.D. [id number] MANUAL DIFFERENTIALon 2024 BASOPHILS - ABS (DIFF) 0.11 K/mcL Normal 0.00-0.30 [facility] Comment on above: Performed By: #### 4 [id number] #### LAB [address] [place] [address] Chucho Magdaleno M.D. [id number] BASOPHILS - REL (DIFF) 2.0 % Normal [facility] Comment on above: Performed By: #### 4 [id number] #### LAB [address] [place] [address] Chucho Magdaleno M.D. [id number] EOSINOPHILS - ABS (DIFF) 0.06 K/mcL Normal 0.00-0.50 [facility] Comment on above: Performed By: #### 4 [id number] #### LAB [address] [place] [address] Chucho Magdaleno M.D. [id number] EOSINOPHILS - REL (DIFF) 1.0 % Normal [facility] Comment on above: Performed By: #### 4 [id number] #### LAB [address] [address] Chucho Magdaleno M.D. [id number] LYMPHOCYTES - ABS (DIFF) 1.51 K/mcL Normal 0.90-4.00 [facility] Comment on above: Performed By: #### 4 [id number] #### LAB [address] [address] Chucho Magdaleno M.D. [id number] LYMPHOCYTES - REL (DIFF) 27.0 % Normal [facility] Comment on above: Performed By: #### 4 [id number] #### LAB [address] [address] Chucho Magdaleno M.D. [id number] MONOCYTES - ABS (DIFF) 0.67 K/mcL Normal 0.30-0.90 [facility] Comment on above: Performed By: #### 4 [id number] #### LAB [address] [address] Chucho Magdaleno M.D. [id number] MONOCYTES - REL (DIFF) 12.0 % Normal [facility] Comment on above: Performed By: #### 4 [id number] #### LAB [address] [address] Chucho Magdaleno M.D. [id number] NEUTROPHILS - ABS (DIFF) 3.24 K/mcL Normal 1.70-7.00 [facility] Comment on above: Performed By: #### 4 [id number] #### [facility] [address] [address] Chucho Magdaleno M.D. [id number] NEUTROPHILS - REL (DIFF) 58.0 % Normal [facility] Comment on above: Performed By: #### 4 [id number] #### [facility] [address] [address] Chucho Magdaleno M.D. [id number] MORPHOLOGYon 02-02-2025 OVAL SCAN Few Normal [facility] Comment on above: Performed By: #### L [id number] #### [facility] [address] [address] Chucho Magdaleno M.D. [id number] PLATELET ESTIMATE Decreased Abnormal Normal [facility] Comment on above: Performed By: #### L [id number] #### [facility] [address] [place], [place] [address] Chucho Magdaleno M.D. [id number] POLY SCAN Few Normal [facility] Comment on above: Performed By: #### L [id number] #### [facility] [address] [place], [place] [address] Chucho Magdaleno M.D. [id number] RBC MORPH SCAN See Comment Normal [facility] Comment on above: Result Comment: RBC Indices confirmed with manual peripheral smear review. Performed By: #### L [id number] #### [facility] [address] [place], [place] [address] Chucho Magdaleno M.D. [id number] TEAR DROP CELL SCAN Few Normal [facility] Comment on above: Performed By: #### L [id number] #### [facility] [address] [place], [place] [address] Chucho Magdaleno M.D. [id number] BASIC METABOLIC PANEL 11-17 BUN/CREATININE RATIO SEE NOTE: Normal 6-22 [facility] Comment on above: Order Comment: FASTI NG:NO FASTING: NO Result Comment: Not Reported: BUN and Creatinine are within reference range. Performed By: #### 1 [id number] #### [facility] [address], [address] [place] [address] Pageant Director: Gabriel Armstrong MD Calcium [Mass/Vol] 9.0 mg/dL Normal 8.6-10.3 [facility] Comment on above: Order Comment: FASTI NG:NO FASTING: NO Performed By: #### 1 [id number] #### [facility] [address] , [address] [place] [address] Pageant Director: Gabriel Armstrong MD Chloride [Moles/Vol] 101 mmol/L Normal 98-110 [facility] Comment on above: Order Comment: FASTI NG:NO FASTING: NO Performed By: #### 1 [id number] #### [facility] [place] [address] [address] , [address] [place] [address] Pageant Director: Gabriel Armstrong MD CO2 [Moles/Vol] 30 mmol/L Normal 20-32 [facility] Comment on above: Order Comment: FASTI NG:NO FASTING: NO Performed By: #### 1 0165 #### [facility] [place] [address] Pageant Director: Gabriel Armstrong MD Creatinine [Mass/Vol] 1.25 mg/dL Normal 0.70-1.[address] [facility] Comment on above: Order Comment: FASTI NG:NO FASTING: NO Performed By: #### 1 [id number] #### [facility] [place] [address] Pageant Director: Gabriel Armstrong MD GFR/1.73 sq M.predicted among non-blacks MDRD (S/P/Bld) [Vol rate/Area] 61 mL/min/{1.73_m2} Normal > OR = 60 [facility] Comment on above: Order Comment: FASTI NG:NO FASTING: NO Performed By: #### 1 [id number] #### [facility] [place] [address] Pageant Director: Gabriel Armstrong MD Glucose [Mass/Vol] 85 mg/dL Normal 65-139 [facility] Comment on above: Order Comment: FASTI NG:NO FASTING: NO Result Comment: Non-fasting reference interval Performed By: #### 1 0165 #### [facility] [place] [address] Pageant Director: Gabriel Armstrong MD Potassium [Moles/Vol] 5.2 mmol/L Normal 3.5-5.[address] [facility] Comment on above: Order Comment: FASTI NG:NO FASTING: NO Performed By: #### 1 0165 #### [facility] [place] [address] Pageant Director: Gabriel Armstrong MD Sodium [Moles/Vol] 136 mmol/L Normal 135-146 [facility] Comment on above: Order Comment: FASTI NG:NO FASTING: NO Performed By: #### 1 0165 #### [facility] [address], [address] [place] [address] Pageant Director: Gabriel Armstrong MD Urea nitrogen [Mass/Vol] 25 mg/dL Normal 7-25 [facility] Comment on above: Order Comment: FASTI NG:NO FASTING: NO Performed By: #### 1 [id number] #### [facility] [address], [address] [place] [address] Pageant Director: Gabriel Armstrong MD Cardiology Visit Reporton Cardiology Visit Report [facility] [address] [place], [place] [address] OFFICE VISIT Date of Service: 11/11/24 MR#: [id number] Acct: [id number] Name: JORGE FITCH . Rep #: [id number] : 1950 Provider: LONA Marquez Age/Sex: 74/M Location: [facility] Status: Signed HPI HPI History of Present Illness Details: This is a 74-year-old white male who presents for outpatient cardiovascular follow-up visit. He has a history of underlying CAD, PCI, atrial fibrillation status post EPS/RFA, hyperlipidemia and hypertension. He does have a history of leukemia, and follows with Dr. Agustin Vallejo. At his last office visit with us he was not on any medications as he chose not to be. 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 He would like to continue follow-up care with our office. From a cardiac standpoint, the patient is doing well. He denies any palpitations, chest pain, pressure or heaviness. He denies SOB, Orthopnea, and PND. He does not have bleeding issues; no blood in urine, stool or nosebleeds. He denies any decrease in energy level, myalgias, or claudication. He does not have edema, or sudden weight gain. He denies dizziness, lightheadedness, syncopal or near syncopal episodes, and headaches. Intake Vital Signs 09/09/24 10:03 11/11/24 09:16 Height 6 ft 6 ft Weight: 189 lb 188 lb BMI 25.6 25.4 BP 153/86 H 160/92 H Blood Pressure Location Rt brachial Lt brachial Position Sitting Sitting Respiration 16 16 Pulse 67 60 Pulse Source NIBP NIBP Intake Visit Reasons: 2 M FU Board Winder Required: No Allergies Penicillins (PCN) Allergy (Verified 11/11/24 09:22) Unknown atorvastatin calcium (From Lipitor) Adverse Reaction (Severe, Verified 11/11/24 09:22) Severe Myalgias and joint pain hips and shoulders pravastatin Adverse Reaction (Severe, Verified 11/11/24 09:22) Muscle and joint pain in shoulders and hips, headaches simvastatin (From Zocor) Adverse Reaction (Severe, Verified 11/11/24 09:22) Severe myalgias in hips and shoulders, joint pain Medications ???Medication ???Instructions ???Recorded ???Confirmed ???Type metoprolol succinate 25 mg 25 mg PO DAILY #90 tabs 01/26/24 0 11/11/24 Rx tablet,extended release 24 hr ezetimibe 10 mg tablet 10 mg PO DAILY 09/09/24 11/11/24 H istory lisinopril 10 mg tablet 10 mg PO QDAY #90 tabs 11/11/24 Rx Ejection fraction %: 58 Have you fallen in the past year?: No PFSH Medical History Mixed hyperlipidemia Paroxysmal atrial fibrillation Essential hypertension Thrombocytopenia Atherosclerotic heart disease of [place] coronary artery without angina pectoris Neurocardiogenic syncope Chest pain Surgical History History of cardiac catheterization Stented coronary artery ( 12/2008) History of radiofrequency ablation (RFA) procedure for cardiac arrhythmia Family History Father CAD (coronary artery disease) Diabetes CVA (cerebral vascular accident) Hyperlipidemia Prostate cancer Mother Lung cancer CVA (cerebral vascular accident) Lupus Sister Lupus Other Hypertension Social History Smoking Status: Never smoker alcohol intake: current alcohol intake frequency: holidays/special occasions only Alcohol type: beer substance use type: does not use caffeine: Yes Type: carbonated beverages and coffee what type of physical activity do you participate in: walking frequency: daily duration: 15-30 minutes/day seatbelt use: always do you feel safe at home: Yes ROS Const Const: Negative for fatigue or weakness Eyes Eyes: Negative for change in vision ENT ENT: Negative for dizziness or balance problems Cardio Chest Pain: No Palpitations: No Edema: None Resp Respiratory: Negative for SOB with activity, SOB at rest or SOB orthopnea SOB lying down GI GI: Negative nausea or heartburn Musc Musc: Negative for balance problems Neuro Neuro: Negative for dizziness, lightheadedness, near syncope, syncope or weakness Endo Endo: Negative for fatigue Cardiology Exam Const Appearance: cooperative, healthy appearing, comfortable, no acute distress, well developed and well groomed Nutritional Appearance: well nourished and overweight Orientation: alert, awake and oriented x3 Head Head: normal to inspection, normocephalic and atraumatic Ears: hearing grossly normal bilaterally Nose: external nose normal Face and Sinus: face symmetric Eyes Eyelids: eyelids normal Conjunctivae: conjunctivae normal P (more content not included)... Normal [facility] Cardiology Visit Reporton Cardiology Visit Report [facility] [address] [place] [address] OFFICE VISIT Date of Service: 09/09/24 MR#: [id number] Acct: [id number] Name: JORGE FITCH . Rep #: [id number] : 1950 Provider: LONA Marquez Age/Sex: 74/M Location: [facility] Status: Signed HPI HPI History of Present Illness Details: This is a 74-year-old white male who presents for outpatient cardiovascular follow-up visit. He has a history of underlying CAD, PCI, atrial fibrillation status post EPS/RFA, hyperlipidemia and hypertension. He does have a history of leukemia, and follows with Dr. Agustin Vallejo. At his last office visit with us he was not on any medications as he chose not to be. 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 He would like to continue follow-up care with our office. From a cardiac standpoint, the patient is doing well. He denies any palpitations, chest pain, pressure or heaviness. He denies SOB, Orthopnea, and PND. He does not have bleeding issues; no blood in urine, stool or nosebleeds. He denies any decrease in energy level, myalgias, or claudication. He does not have edema, or sudden weight gain. He denies dizziness, lightheadedness, syncopal or near syncopal episodes, and headaches. Intake Vital Signs 09/09/23 13:29 09/09/24 10:03 09/09/24 10:29 Height 6 ft 6 ft Weight: 198 lb 189 lb BMI 26.8 25.6 BP 165/93 H 153/86 H 140/80 H Blood Pressure Location Lt brachial Rt brachial Position Sitting Sitting Respiration 18 16 Pulse 84 67 Pulse Source Monitor NIBP Pulse Oximetry (%) 99 Intake Visit Reasons: 1 Y FU Board Winder Required: No Is patient in pain?: No Allergies Penicillins (PCN) Allergy (Verified 09/09/24 10:11) Unknown atorvastatin calcium (From Lipitor) Adverse Reaction (Severe, Verified 09/09/24 10:11) Severe Myalgias and joint pain hips and shoulders pravastatin Adverse Reaction (Severe, Verified 09/09/24 10:11) Muscle and joint pain in shoulders and hips, headaches simvastatin (From Zocor) Adverse Reaction (Severe, Verified 09/09/24 10:11) Severe myalgias in hips and shoulders, joint pain Medications ???Medication ???Instructions ???Recorded ???Confirmed ???Type metoprolol succinate 25 mg 25 mg PO DAILY #90 tabs 01/26/24 09/09/24 Rx tablet,extended release 24 hr ezetimibe 10 mg tablet 10 mg PO DAILY 09/09/24 09/09/24 History hydrochlorothiazide 12.5 mg tablet mg PO DAILY 09/09/24 09/09/24 History lisinopril 2.5 mg tablet 2.5 mg PO QDAY #90 tabs 09/09/24 09/09/24 Rx Ejection fraction %: 55 Have you fallen in the past year?: No PFSH Medical History Mixed hyperlipidemia Paroxysmal atrial fibrillation Essential hypertension Thrombocytopenia Atherosclerotic heart disease of [place] coronary artery without angina pectoris Neurocardiogenic syncope Chest pain Surgical History History of cardiac catheterization Stented coronary artery ( 12/2008) History of radiofrequency ablation (RFA) procedure for cardiac arrhythmia Family History Father CAD (coronary artery disease) Diabetes CVA (cerebral vascular accident) Hyperlipidemia Prostate cancer Mother Lung cancer CVA (cerebral vascular accident) Lupus Sister Lupus Other Hypertension Social History Smoking Status: Never smoker alcohol intake: current alcohol intake frequency: holidays/special occasions only Alcohol type: beer substance use type: does not use caffeine: Yes Type: carbonated beverages and coffee what type of physical activity do you participate in: walking frequency: daily duration: 15-30 minutes/day seatbelt use: always do you feel safe at home: Yes ROS Const Const: Negative for fatigue or weakness Eyes Eyes: Negative for change in vision ENT ENT: Negative for dizziness or balance problems Cardio Chest Pain: No Palpitations: No Edema: None Resp Respiratory: Negative for SOB with activity, SOB at rest or SOB orthopnea SOB lying down GI GI: Negative nausea or heartburn Musc Musc: Negative for balance problems Neuro Neuro: Negative for dizziness, lightheadedness, near syncope, syncope or weakness Endo Endo: Negative for fatigue Cardiology Exam Const Appearance: cooperative, healthy appearing, comfortable, no acute distress, well developed and well groomed Nutritional Appearance: well nourished and overweight Orientation: alert, awake and oriented x3 Head Head: normal to inspection, normocephalic and atraumatic Ears: hearing grossly no (more content not included)... Normal [facility] Lipid Profileon 09-08-2024 Cholesterol [Mass/Vol] 143 mg/dL Normal 200 [facility] Comment on above: Result Comment: <200 mg/dL Desirable 200-240 mg/dL Borderline >240 mg/dL High Risk Performed By: #### L 500.6420, L500.4870 #### [facility] [place], [address] Cholesterol in HDL [Mass/Vol] 57 mg/dL Normal [facility] Comment on above: Result Comment: The drugs N-Acetylcysteine and Metamizole may falsely depress this assay. Reference Range HDL <40 mg/dL Low HDL Cholesterol HDL >or= 60 mg/dL High HDL Cholesterol Performed By: #### L 500.3400, L500.4100 #### [facility] [address] [place], [address] Cholesterol in LDL [Mass/Vol] 73 mg/dL Normal 0-130 [facility] Comment on above: Performed By: #### L 500.3400, L500.4100 #### [facility] [address] [place], [address] Cholesterol in VLDL [Mass/Vol] 13 mg/dL Normal 5-40 [facility] Comment on above: Performed By: #### L 500.3400, L500.4100 #### [facility] [address] [place], [address] Triglyceride [Mass/Vol] 64 mg/dL Normal [facility] Comment on above: Result Comment: The drugs N-Acetylcysteine and Metamizole may falsely depress this assay. Serum Triglycerides Reference Interval Normal <150 mg/dL Borderline high 150 - 199 mg/dL High 200 - 499 mg/dL Very High > or = 500 mg/dL Performed By: #### L 500.3400, L500.4100 #### [facility] [address] [place], [address] Liver Profileon 09-08-2024 Albumin [Mass/Vol] 3.2 g/dL Normal 3.2-5.0 [facility] Comment on above: Performed By: #### L 500.3400, L500.4100 #### [facility] [address] [place], [address] ALK P 67 U/L Normal 45-117 [facility] Comment on above: Performed By: #### L 500.3400, L500.4100 #### [facility] [address] [place], [address] ALT [Catalytic activity/Vol] 20 U/L Normal 16-61 [facility] Comment on above: Performed By: #### L 500.3400, L500.4100 #### [facility] [address] [place], [address] AST [Catalytic activity/Vol] 21 U/L Normal 15-37 [facility] Comment on above: Performed By: #### L 500.3400, L500.4100 #### [facility] [address] [place], [address] Bilirubin [Mass/Vol] 1.20 mg/dL High 0.20-1.00 [facility] Comment on above: Result Comment: For patients on eltrombopag therapy, use of Dimension [place] TBIL is not recommended. Performed By: #### L 500.3400, L500.4100 #### [facility] [address] [place], [address] Bilirubin.direct [Mass/Vol] 0.27 mg/dL Normal 0.00-0.30 [facility] Comment on above: Performed By: #### L 500.3400, L500.4100 #### [facility] [address] [place], [address] Globulin (S) [Mass/Vol] 3.8 g/dL Normal 2.2-4.2 [facility] Comment on above: Performed By: #### L 500.3400, L500.4100 #### [facility] [address] [place], [address] T PROT 7.0 g/dL Normal 6.4-8.2 [facility] Comment on above: Performed By: #### L 500.3400, L500.4100 #### [facility] [address] [place], [address] BASIC METABOLIC PANELon 11- BUN/CREATININE RATIO SEE NOTE: Normal 6-22 [facility] Comment on above: Result Comment: Not Reported: BUN and Creatinine are within reference range. Performed By: #### 7 600, 33815 #### [facility] [address], [address] [place] [address] Pageant Director: Gabriel Armstrong MD Calcium [Mass/Vol] 8.9 mg/dL Normal 8.6-10.3 [facility] Comment on above: Performed By: #### 7 600, 85523 #### [facility] [address], [address] [place] [address] Pageant Director: Gabriel Armstrong MD Chloride [Moles/Vol] 102 mmol/L Normal 98-110 [facility] Comment on above: Performed By: #### 7 600, 15361 #### [facility] [address], [address] [place] [address] Pageant Director: Gabriel Armstrong MD CO2 [Moles/Vol] 32 mmol/L Normal 20-32 [facility] Comment on above: Performed By: #### 7 600, 65457 #### [facility] [address], [address] [place] [address] Pageant Director: Gabriel Armstrong MD Creatinine [Mass/Vol] 1.14 mg/dL Normal 0.70-1.[address] [facility] Comment on above: Performed By: #### 7 600, 53900 #### [facility] [address], [address] [place] [address] Pageant Director: Gabriel Armstrong MD GFR/1.73 sq M.predicted among non-blacks MDRD (S/P/Bld) [Vol rate/Area] 68 mL/min/{1.73_m2} Normal > OR = 60 [facility] Comment on above: Performed By: #### 7 600, 39673 #### [facility] [address], [address] [place] [address] Pageant Director: Gabriel Armstrong MD Glucose [Mass/Vol] 96 mg/dL Normal 65-99 [facility] Comment on above: Result Comment: Fasting reference interval Performed By: #### 7 600, 27724 #### [facility] of [address], [address] [place] [address] Pageant Director: Gabriel Armstrong MD Potassium [Moles/Vol] 4.5 mmol/L Normal 3.5-5.3 [facility] Comment on above: Performed By: #### 7 600, 17838 #### [facility] of [address], [address] [place] [address] Pageant Director: Gabriel Armstrong MD Sodium [Moles/Vol] 138 mmol/L Normal 135-146 [facility] Comment on above: Performed By: #### 7 600, 40937 #### [facility] [address], [address] [place] [address] Pageant Director: Gabriel Armstrong MD Urea nitrogen [Mass/Vol] 23 mg/dL Normal 7-25 [facility] Comment on above: Performed By: #### 7 600, 83406 #### [facility] [address], [address] [place] [address] Pageant Director: Gabriel Armstrong MD LIPID PANEL, [facility] - Cholesterol [Mass/Vol] 166 mg/dL Normal <200 [facility] Comment on above: Order Comment: FASTI NG:YES FASTING: YES Performed By: #### 7 600, 08484 #### [facility] [address], [address] [place] [address] Pageant Director: Gabriel Armstrong MD Cholesterol in HDL [Mass/Vol] 49 mg/dL Normal > OR = 40 [facility] Comment on above: Order Comment: FASTI NG:YES FASTING: YES Performed By: #### 7 600, 36510 #### [facility] [address], [address] [place] [address] Pageant Director: Gabriel Armstrong MD Cholesterol in LDL [Mass/Vol] 102 mg/dL High [facility] Comment on above: Order Comment: FASTI NG:YES FASTING: YES Result Comment: Refe rence range: <100 Desirable range <100 mg/dL for primary prevention; <70 mg/dL for patients with CHD or diabetic patients with > or = 2 CHD risk factors. LDL-C is now calculated using the [place] calculation, which is a validated novel method providing better accuracy than the Friedewald equation in the estimation of LDL-C. Chidi DANG et al. REGULO. 2013;310(19): 4975-8896 (http://education.Formotus.ishBowl/faq/CNH523) Performed By: #### 7 600, 91972 #### [facility] [address], [address] [place] [address] Pageant Director: Gabriel Armstrong MD Cholesterol.total/Cho lesterol in HDL [Mass ratio] 3.4 {ratio} Normal <5.0 [facility] Comment on above: Order Comment: FASTI NG:YES FASTING: YES Performed By: #### 7 600, 89807 #### [facility] [address], [address] [place] [address] Pageant Director: Gabriel Armstrong MD NON HDL CHOLESTEROL 117 mg/dL (calc) Normal <130 [facility] Comment on above: Order Comment: FASTI NG:YES FASTING: YES Result Comment: For patients with diabetes plus 1 major ASCVD risk factor, treating to a non-HDL-C goal of <100 mg/dL (LDL-C of <70 mg/dL) is considered a therapeutic option. Performed By: #### 7 600, 22335 #### [facility] [address], [address] [place] [address] Pageant Director: Gabriel Armstrong MD Triglyceride [Mass/Vol] 67 mg/dL Normal <150 [facility] Comment on above: Order Comment: FASTI NG:YES FASTING: YES Performed By: #### 7 600, 44867 #### [facility] [address], [address] [place] [address] Pageant Director: Gabriel Armstrong MD BASIC METABOLIC PANELon 10-0 -2023 Anion gap [Moles/Vol] 13 mmol/L Normal 10-20 [facility] Comment on above: Order Comment: [facility] has implemented the eGFR calculation approach that does not have a coefficient for race that conforms to the NKF-ASN Task Force Recommendations. Performed By: #### 4 6124 #### [facility] [address] [place], [place] [address] Chucho Magdaleno M.D. [id number] Calcium [Mass/Vol] 8.8 mg/dL Normal 8.4-10.2 [facility] Comment on above: Order Comment: [facility] has implemented the eGFR calculation approach that does not have a coefficient for race that conforms to the NKF-ASN Task Force Recommendations. Performed By: #### 4 6124 #### [facility] [address] [place], [place] [address] Chucho Magdaleno M.D. [id number] Chloride [Moles/Vol] 104 mmol/L Normal 98-108 [facility] Comment on above: Order Comment: [facility] has implemented the eGFR calculation approach that does not have a coefficient for race that conforms to the NKF-ASN Task Force Recommendations. Performed By: #### 4 6124 #### [facility] [address] [place], [place] [address] Chucho Magdaleno M.D. [id number] Creatinine [Mass/Vol] 1.43 mg/dL High 0.80-1.30 [facility] Comment on above: Order Comment: [facility] has implemented the eGFR calculation approach that does not have a coefficient for race that conforms to the NKF-ASN Task Force Recommendations. Performed By: #### 4 6124 #### [facility] [address] [place], [place] [address] Chucho Magdaleno M.D. [id number] EGFR 52 mL/min/1.73 m2 Low >=60 [facility] Comment on above: Order Comment: [facility] has implemented the eGFR calculation approach that does not have a coefficient for race that conforms to the NKF-ASN Task Force Recommendations. Result Comment: Bhavna mated GFR was calculated using the 2020 CKD-EPI creatinine equation. Performed By: #### 4 6193 #### [facility] [address] [place] [address] Chucho Magdaleno M.D. [id number] Glucose [Mass/Vol] 78 mg/dL Normal 65-99 [facility] Comment on above: Order Comment: [facility] has implemented the eGFR calculation approach that does not have a coefficient for race that conforms to the NKF-ASN Task Force Recommendations. Performed By: #### 4 6124 #### [facility] [address] [place] [address] Chucho Magdaleno M.D. [id number] HCO3 (Bld) [Moles/Vol] 28 mmol/L Normal 21-32 [facility] Comment on above: Order Comment: [facility] has implemented the eGFR calculation approach that does not have a coefficient for race that conforms to the NKF-ASN Task Force Recommendations. Performed By: #### 4 6124 #### [facility] [address] [place] [address] Chucho Magdaleno M.D. [id number] Potassium [Moles/Vol] 4.7 mmol/L Normal 3.5-5.1 [facility] Comment on above: Order Comment: [facility] has implemented the eGFR calculation approach that does not have a coefficient for race that conforms to the NKF-ASN Task Force Recommendations. Performed By: #### 4 6124 #### [facility] [address] [place] [address] Chucho Magdaleno M.D. [id number] Sodium [Moles/Vol] 140 mmol/L Normal 135-145 [facility] Comment on above: Order Comment: [facility] has implemented the eGFR calculation approach that does not have a coefficient for race that conforms to the NKF-ASN Task Force Recommendations. Performed By: #### 4 6124 #### [facility] [address] [place] [address] Chucho Magdaleno M.D. [id number] Urea nitrogen [Mass/Vol] 27 mg/dL High 8-25 [facility] Comment on above: Order Comment: [facility] has implemented the eGFR calculation approach that does not have a coefficient for race that conforms to the NKF-ASN Task Force Recommendations. Performed By: #### 4 6124 #### [facility] [address] [place] [address] Chucho Magdaleno M.D. [id number] Urea nitrogen/Creatinine [Mass ratio] 18.9 mg/mg Normal 10.0-20.0 [facility] Comment on above: Order Comment: [facility] has implemented the eGFR calculation approach that does not have a coefficient for race that conforms to the NKF-ASN Task Force Recommendations. Performed By: #### 4 6124 #### [facility] [address] [place] [address] Chucho Magdaleno M.D. [id number] LIPID PANELon 05-25-2024 Cholesterol [Mass/Vol] 199 mg/dL Normal 100-199 [facility] Comment on above: Result Comment: [facility] Cholesterol Education [facility] Guidelines: Cholesterol Desirable: <200 mg/dL Borderline High: 200-239 mg/dL High: greater than or equal to 240 mg/dL Performed By: #### 4 6087 #### [facility] [address] [place] [address] Chucho Magdaleno M.D. [id number] Cholesterol in HDL [Mass/Vol] 56 mg/dL Normal 40-59 [facility] Comment on above: Result Comment: [facility] Cholesterol Education Program Guidelines: HDL Cholesterol Low: <40 mg/dL Near Optimal: 40-59 mg/dL High: greater than or equal to 60 mg/dL Performed By: #### 4 6073 #### [facility] [address] [place] [address] Chucho Magdaleno M.D. [id number] Cholesterol.total/Cho lesterol in HDL [Mass ratio] 3.6 {ratio} Normal [facility] Comment on above: Result Comment: Male s Cholesterol/HDL Ratio: Average risk: 5.0 1/2 average risk: 3.4 2 x average risk: 9.6 Performed By: #### 4 6077 #### [facility] [address] [place] [address] Chucho Magdaleno M.D. [id number] LDL CHOLESTEROL CALCULATED 124 mg/dL Normal 10-130 [facility] Comment on above: Result Comment: [facility] onal Cholesterol Education Program Guidelines: LDL Cholesterol Optimal: <100 mg/dL Near Optimal/above Optimal: 100-129 mg/dL Borderline High: 130-159 mg/dL High: 160-189 mg/dL Very High: greater than or equal to 190 mg/dL Performed By: #### 4 6087 #### [facility] [address] [place] [address] Chucho Magdaleno M.D. [id number] NON HDL CHOL 143 mg/dL Normal [facility] Comment on above: Result Comment: [facility] ondc Cholesterol Education Program Guidelines: NON HDL Cholesterol Desirable: <130 mg/dL Borderline High: 130-159 mg/dL High: 160-189 mg/dL Very High: > or = 190 mg/dL Performed By: #### 4 6087 #### [facility] [address] [place] [address] Chucho Magdaleno M.D. [id number] Triglyceride [Mass/Vol] 95 mg/dL Normal 30-150 [facility] Comment on above: Result Comment: [facility] Cholesterol Education Program Guidelines: Triglyceride Normal: <150 mg/dL Borderline High: 150-199 mg/dL High: 200-499 mg/dL Very High: greater than or equal to 500 mg/dL Performed By: #### 4 6087 #### [facility] [address] [place] [address] Chucho Magdaleno M.D. [id number] CBC WITH AUTO DIFFERENTIALon 01-29-2024 AUTO NRBC 0.0 % Normal [facility] Comment on above: Performed By: #### L [id number] #### [facility] [address] [place] [id number] Chucho Magdaleno M.D. [id number] AUTO NRBC ABS COUNT 0.00 K/mcL Normal 0.00-0.00 [facility] Comment on above: Performed By: #### L [id number] #### [facility] [address] [place] [address] Chucho Magdaleno M.D. [id number] BASOPHILS ABSOLUTE COUNT 0.03 K/mcL Normal 0.00-0.30 [facility] Comment on above: Performed By: #### L [id number] #### [facility] [address] [place] [address] Chucho Magdaleno M.D. [id number] Basophils/100 WBC (Bld) 0.5 % Normal [facility] Comment on above: Performed By: #### L [id number] #### [facility] [address] [place] [address] Chucho Magdaleno M.D. [id number] Eosinophils (Bld) [#/Vol] 0.05 10*3/uL Normal 0.00-0.50 [facility] Comment on above: Performed By: #### L [id number] #### [facility] [address] [place] [address] Chucho Magdaleno M.D. [id number] Eosinophils/100 WBC (Bld) 0.8 % Normal [facility] Comment on above: Performed By: #### L [id number] #### [facility] [address] [place] [address] Chucho Magdaleno M.D. [id number] Erythrocyte distribution width (RBC) [Ratio] 14.5 % Normal 11.6-14.8 [facility] Comment on above: Performed By: #### L [id number] #### LAB [address] [place] [address] Chucho Magdaleno M.D. [id number] Hematocrit (Bld) [Volume fraction] 41.6 % Normal 41.0-53.0 [facility] Comment on above: Performed By: #### L [id number] #### [facility] [address] [place] [address] Chucho Magdaleno M.D. [id number] Hemoglobin (Bld) [Mass/Vol] 14.4 g/dL Normal 13.5-17.5 [facility] Comment on above: Performed By: #### L [id number] #### [facility] [address] [place] [address] Chucho Magdaleno M.D. [id number] IG ABSOLUTE 0.02 K/mcL Normal 0.00-0.30 [facility] Comment on above: Performed By: #### L [id number] #### [facility] [address] [place] [address] Chucho Magdaleno M.D. [id number] IG PERCENT 0.30 % Normal [facility] Comment on above: Result Comment: The IG parameter is the percentage of metamyelocytes, myelocytes and promyelocytes. An immature granulocyte count (IG) of 1% or more suggests the possibility of infection, an IG count of 3% is very likely related to an infection. Performed By: #### L [id number] #### [facility] [address] [place] [address] Chucho Magdaleno M.D. [id number] Lymphocytes (Bld) [#/Vol] 1.69 10*3/uL Normal 0.90-4.00 [facility] Comment on above: Performed By: #### L [id number] #### [facility] [address] [place] [address] Chucho Magdaleno M.D. [id number] Lymphocytes/100 WBC (Bld) 28.5 % Normal [facility] Comment on above: Performed By: #### L [id number] #### [facility] [address] [place] [address] Chucho Magdaleno M.D. [id number] MCH (RBC) [Entitic mass] 32.4 pg Normal 26.0-34.0 [facility] Comment on above: Performed By: #### L [id number] #### [facility] [address] [place] [address] Chucho Magdaleno M.D. [id number] MCV (RBC) [Entitic vol] 93.7 fL Normal 80.0-100.0 [facility] Comment on above: Performed By: #### L [id number] #### LAB [address] [place] [address] Chucho Magdaleno M.D. [id number] MEAN CORPUSCULAR HEMOGLOBIN CONC 34.6 g/dL Normal 31.0-37.0 [facility] Comment on above: Performed By: #### L [id number] #### [facility] [address] [place] [address] Chucho Magdaleno M.D. [id number] Monocytes (Bld) [#/Vol] 1.00 10*3/uL High 0.30-0.90 [facility] Comment on above: Performed By: #### L [id number] #### [facility] [address] [place] [address] Chucho Magdaleno M.D. [id number] Monocytes/100 WBC (Bld) 16.8 % Normal [facility] Comment on above: Performed By: #### L [id number] #### [facility] [address] [place] [address] Chucho Magdaleno M.D. [id number] NEUTROPHILS ABSOLUTE COUNT 3.15 K/mcL Normal 1.70-7.00 [facility] Comment on above: Performed By: #### L [id number] #### [facility] [address] [place] [address] Chucho Magdaleno M.D. [id number] Neutrophils/100 WBC (Bld) 53.1 % Normal [facility] Comment on above: Result Comment: Meg pheral smear reviewed manually Performed By: #### L [id number] #### [facility] [address] [place] [address] Chucho Magdaleno M.D. [id number] Platelet mean volume (Bld) [Entitic vol] 10.1 fL Normal 9.4-12.4 [facility] Comment on above: Performed By: #### L [id number] #### [facility] [address] [place] [address] Chucho Magdaleno M.D. [id number] Platelets (Bld) [#/Vol] 106 10*3/uL Low 150-400 [facility] Comment on above: Performed By: #### L [id number] #### LAB [address] [place] [address] Chucho Magdaleno M.D. [id number] RBC (Bld) [#/Vol] 4.44 10*6/uL Low 4.50-5.90 [facility] Comment on above: Performed By: #### L [id number] #### [facility] LAB [address] [id number] Chucho Magdaleno M.D. [id number] WBC (Bld) [#/Vol] 5.94 10*3/uL Normal 4.50-11.00 [facility] Comment on above: Performed By: #### L [id number] #### MH LAB [address] [address] Chucho Magdaleno M.D. [id number] COMPREHENSIVE METABOLIC PANE Claudio 01-29-2024 Albumin [Mass/Vol] 3.7 g/dL Normal 3.2-5.2 [facility] Comment on above: Order Comment: [facility] has implemented the eGFR calculation approach that does not have a coefficient for race that conforms to the NKF-ASN Task Force Recommendations. Performed By: #### 4 [id number] #### LAB [address] [address] Chucho Magdaleno M.D. [id number] ALP [Catalytic activity/Vol] 74 U/L Normal 40-150 [facility] Comment on above: Order Comment: [facility] has implemented the eGFR calculation approach that does not have a coefficient for race that conforms to the NKF-ASN Task Force Recommendations. Performed By: #### 4 [id number] #### MH LAB [address] [address] Chucho Magdaleno M.D. [id number] ALT [Catalytic activity/Vol] 11 U/L Normal 0-50 U/L [facility] Comment on above: Order Comment: [facility] has implemented the eGFR calculation approach that does not have a coefficient for race that conforms to the NKF-ASN Task Force Recommendations. Performed By: #### 4 [id number] #### MH LAB [address] [address] Chucho Magdaleno M.D. [id number] Anion gap [Moles/Vol] 12 mmol/L Normal 10-20 [facility] Comment on above: Order Comment: [facility] has implemented the eGFR calculation approach that does not have a coefficient for race that conforms to the NKF-ASN Task Force Recommendations. Performed By: #### 4 [id number] #### LAB [address] [address] Chucho Magdaleno M.D. [id number] AST [Catalytic activity/Vol] 23 U/L Normal 0-50 U/L [facility] Comment on above: Order Comment: [facility] has implemented the eGFR calculation approach that does not have a coefficient for race that conforms to the NKF-ASN Task Force Recommendations. Performed By: #### 4 6126 #### LAB [address] [address] Chucho Magdaleno M.D. [id number] Bilirubin [Mass/Vol] 1.2 mg/dL Normal 0.0-1.3 [facility] Comment on above: Order Comment: [facility] has implemented the eGFR calculation approach that does not have a coefficient for race that conforms to the NKF-ASN Task Force Recommendations. Performed By: #### 4 [id number] #### LAB [address] [address] Chucho Magdaleno M.D. [id number] Calcium [Mass/Vol] 9.0 mg/dL Normal 8.4-10.2 [facility] Comment on above: Order Comment: [facility] has implemented the eGFR calculation approach that does not have a coefficient for race that conforms to the NKF-ASN Task Force Recommendations. Performed By: #### 4 [id number] #### LAB [address] [address] Chucho Magdaleno M.D. [id number] Chloride [Moles/Vol] 103 mmol/L Normal 98-108 [facility] Comment on above: Order Comment: [facility] has implemented the eGFR calculation approach that does not have a coefficient for race that conforms to the NKF-ASN Task Force Recommendations. Performed By: #### 4 6126 #### LAB [address] [address] Chucho Magdaleno M.D. [id number] Creatinine [Mass/Vol] 1.16 mg/dL Normal 0.80-1.30 [facility] Comment on above: Order Comment: [facility] has implemented the eGFR calculation approach that does not have a coefficient for race that conforms to the NKF-ASN Task Force Recommendations. Performed By: #### 4 6126 #### LAB [address] [address] Chucho Magdaleno M.D. [id number] EGFR 67 mL/min/1.73 m2 Normal >=60 [facility] Comment on above: Order Comment: [facility] has implemented the eGFR calculation approach that does not have a coefficient for race that conforms to the NKF-ASN Task Force Recommendations. Result Comment: Bhavna mated GFR was calculated using the 2020 CKD-EPI creatinine equation. Performed By: #### 4 6126 #### LAB [address] [address] Chucho Magdaleno M.D. [id number] Glucose [Mass/Vol] 89 mg/dL Normal 65-99 [facility] Comment on above: Order Comment: [facility] has implemented the eGFR calculation approach that does not have a coefficient for race that conforms to the NKF-ASN Task Force Recommendations. Performed By: #### 4 [id number] #### LAB [address] [address] Chucho Magdaleno M.D. [id number] HCO3 (Bld) [Moles/Vol] 29 mmol/L Normal 21-32 [facility] Comment on above: Order Comment: [facility] has implemented the eGFR calculation approach that does not have a coefficient for race that conforms to the NKF-ASN Task Force Recommendations. Performed By: #### 4 6126 #### LAB [address] [address] Chucho Magdaleno M.D. [id number] Potassium [Moles/Vol] 4.8 mmol/L Normal 3.5-5.1 [facility] Comment on above: Order Comment: [facility] has implemented the eGFR calculation approach that does not have a coefficient for race that conforms to the NKF-ASN Task Force Recommendations. Performed By: #### 4 6126 #### LAB [address] [address] Chucho Magdaleno M.D. [id number] Protein [Mass/Vol] 6.8 g/dL Normal 6.0-8.0 [facility] Comment on above: Order Comment: [facility] has implemented the eGFR calculation approach that does not have a coefficient for race that conforms to the NKF-ASN Task Force Recommendations. Performed By: #### 4 6126 #### LAB [address] [address] Chucho Magdaleno M.D. [id number] Sodium [Moles/Vol] 139 mmol/L Normal 135-145 [facility] Comment on above: Order Comment: [facility] has implemented the eGFR calculation approach that does not have a coefficient for race that conforms to the NKF-ASN Task Force Recommendations. Performed By: #### 4 6126 #### LAB [address] [address] Chucho Magdaleno M.D. [id number] Urea nitrogen [Mass/Vol] 21 mg/dL Normal 8-25 [facility] Comment on above: Order Comment: [facility] has implemented the eGFR calculation approach that does not have a coefficient for race that conforms to the NKF-ASN Task Force Recommendations. Performed By: #### 4 [id number] #### LAB [address] [address] Chucho Magdaleno M.D. [id number] Urea nitrogen/Creatinine [Mass ratio] 18.1 mg/mg Normal 10.0-20.0 [facility] Comment on above: Order Comment: [facility] has implemented the eGFR calculation approach that does not have a coefficient for race that conforms to the NKF-ASN Task Force Recommendations. Performed By: #### 4 [id number] #### LAB [address] [address] Chucho Magdaleno M.D. [id number] Comprehensive metabolic 2000 panelon 01-29-2024 Albumin [Mass/Vol] 3.7 g/dL 3.2 - 5.2 g/dL [facility] ALP [Catalytic activity/Vol] 74 U/L 40 - 150 U/L [facility] ALT [Catalytic activity/Vol] 11 U/L 0-50 U/L [facility] Anion gap [Moles/Vol] 12 mmol/L 10 - 2 0 mmol/L [facility] AST [Catalytic activity/Vol] 23 U/L 0-50 U/L [facility] Bilirubin [Mass/Vol] 1.2 mg/dL 0.0 - 1 .3 mg/dL [facility] Calcium [Mass/Vol] 9.0 mg/dL 8.4 - 10. 2 mg/dL [facility] Chloride [Moles/Vol] 103 mmol/L 98 - 10 8 mmol/L [facility] Creatinine [Mass/Vol] 1.16 mg/dL 0.80 - 1.30 mg/dL [facility] GFR/1.73 sq M.predicted CKD-EPI (S/P/Bld) [Vol rate/Area] 67 - PINF [facility] Comment on above: Estimated GFR was ca lculated using the 2020 CKD-EPI creatinine equation. Glucose [Mass/Vol] 89 mg/dL 65 - 99 mg/dL [facility] HCO3 [Moles/Vol] 29 mmol/L 21 - 32 mmol/L [facility] Interpretation and review of laboratory results Normal [facility] Potassium [Moles/Vol] 4.8 mmol/L 3.5 - 5.1 mmol/L [facility] Protein [Mass/Vol] 6.8 g/dL 6.0 - 8.0 g/dL [facility] Sodium [Moles/Vol] 139 mmol/L 135 - 145 mmol/L [facility] Urea nitrogen [Mass/Vol] 21 mg/dL 8 - 25 mg/dL [facility] Urea nitrogen/Creatinine [Mass ratio] 18.1 mg/mg 10.0 - 20.0 [facility] has implemented the eGFR calculation approach that does not have a coefficient for race that conforms to the NKF-ASN Task Force Recommendations. [facility] MORPHOLOGYon 01-29-2024 PLATELET ESTIMATE Decreased Abnormal Normal [facility] Comment on above: Performed By: #### L [id number] #### MH LAB [address] [address] Chucho Magdaleno M.D. [id number] RBC MORPH SCAN Normal [facility] Comment on above: Result Comment: RBC Indices confirmed with manual peripheral smear review. Performed By: #### L [id number] #### LAB [address] [address] Chucho Magdaleno M.D. [id number] CBC WITH AUTO DIFFERENTIALon 01-26-2024 AUTO NRBC 0.0 % [facility] Comment on above: Performed By: #### L [id number] #### LAB [address] [address] Chucho Magdaleno M.D. [id number] AUTO NRBC ABS COUNT 0.00 K/mcL Normal 0.00-0.00 [facility] Comment on above: Performed By: #### L [id number] #### LAB [address] [place] [address] Chucho Magdaleno M.D. [id number] BASOPHILS ABSOLUTE COUNT 0.02 K/mcL Normal 0.00-0.30 [facility] Comment on above: Performed By: #### L [id number] #### LAB [address] [place] [address] Chucho Magdaleno M.D. [id number] Basophils/100 WBC (Bld) 0.4 % [facility] Comment on above: Performed By: #### L [id number] #### LAB [address] [place] [address] Chucho Magdaleno M.D. [id number] Eosinophils (Bld) [#/Vol] 0.06 10*3/uL Normal 0.00-0.50 [facility] Comment on above: Performed By: #### L [id number] #### LAB [address] [place] [address] Chucho Magdaleno M.D. [id number] Eosinophils/100 WBC (Bld) 1.2 % [facility] Comment on above: Performed By: #### L [id number] #### LAB [address] [place], [place] [address] Chucho Magdaleno M.D. [id number] Erythrocyte distribution width (RBC) [Ratio] 14.4 % Normal 11.6-14.8 [facility] Comment on above: Performed By: #### L [id number] #### LAB [address] [address] Chucho Magdaleno M.D. [id number] Hematocrit (Bld) [Volume fraction] 42.4 % Normal 41.0-53.0 [facility] Comment on above: Performed By: #### L [id number] #### LAB [address] [address] Chucho Magdaleno M.D. [id number] Hemoglobin (Bld) [Mass/Vol] 14.4 g/dL Normal 13.5-17.5 [facility] Comment on above: Performed By: #### L [id number] #### LAB [address] [address] Chucho Magdaleno M.D. [id number] IG ABSOLUTE 0.03 K/mcL Normal 0.00-0.30 [facility] Comment on above: Performed By: #### L [id number] #### LAB [address] [address] Chucho Magdaleno M.D. [id number] IG PERCENT 0.60 % Normal [facility] Comment on above: Result Comment: The IG parameter is the percentage of metamyelocytes, myelocytes and promyelocytes. An immature granulocyte count (IG) of 1% or more suggests the possibility of infection, an IG count of 3% is very likely related to an infection. Performed By: #### L [id number] #### LAB [address] [address] Chucho Magdaleno M.D. [id number] Lymphocytes (Bld) [#/Vol] 1.46 10*3/uL Normal 0.90-4.00 [facility] Comment on above: Performed By: #### L [id number] #### LAB [address] [address] Chucho Magdaleno M.D. [id number] Lymphocytes/100 WBC (Bld) 28.2 % Normal [facility] Comment on above: Performed By: #### L [id number] #### LAB [address] [address] Chucho Magdaleno M.D. [id number] MCH (RBC) [Entitic mass] 32.4 pg Normal 26.0-34.0 [facility] Comment on above: Performed By: #### L [id number] #### MH LAB [address] [address] Chucho Magdaleno M.D. [id number] MCV (RBC) [Entitic vol] 95.5 fL Normal 80.0-100.0 [facility] Comment on above: Performed By: #### L [id number] #### LAB [address] [address] Chucho Magdaleno M.D. [id number] MEAN CORPUSCULAR HEMOGLOBIN CONC 34.0 g/dL Normal 31.0-37.0 [facility] Comment on above: Performed By: #### L [id number] #### LAB [address] [address] Chucho Magdaleno M.D. [id number] Monocytes (Bld) [#/Vol] 0.90 10*3/uL Normal 0.30-0.90 [facility] Comment on above: Performed By: #### L [id number] #### LAB [address] [address] Chucho Magdaleno M.D. [id number] Monocytes/100 WBC (Bld) 17.4 % Normal [facility] Comment on above: Performed By: #### L [id number] #### MH LAB [address] [address] Chucho Magdaleno M.D. [id number] NEUTROPHILS ABSOLUTE COUNT 2.70 K/mcL Normal 1.70-7.00 [facility] Comment on above: Performed By: #### L [id number] #### MH LAB [address] [address] Chucho Magdaleno M.D. [id number] Neutrophils/100 WBC (Bld) 52.2 % Normal [facility] Comment on above: Performed By: #### L [id number] #### MH LAB [address] [address] Chucho Magdaleno M.D. [id number] Platelet mean volume (Bld) [Entitic vol] 10.5 fL Normal 9.4-12.4 [facility] Comment on above: Performed By: #### L [id number] #### MH LAB [address] [address] Chucho Magdaleno M.D. [id number] Platelets (Bld) [#/Vol] 102 10*3/uL Low 150-400 [facility] Comment on above: Performed By: #### L [id number] #### MH LAB [address] [address] Chucho Magdaleno M.D. [id number] RBC (Bld) [#/Vol] 4.44 10*6/uL Low 4.50-5.90 [facility] Comment on above: Performed By: #### L [id number] #### MH LAB [address] [address] Chucho Magdaleno M.D. [id number] WBC (Bld) [#/Vol] 5.17 10*3/uL Normal 4.50-11.00 [facility] Comment on above: Performed By: #### L [id number] #### LAB [address] [address] Chucho Magdaleno M.D. [id number] COMPREHENSIVE METABOLIC PANE Claudio 01-26-2024 Albumin [Mass/Vol] 3.7 g/dL Normal 3.2-5.2 [facility] Comment on above: Order Comment: [facility] has implemented the eGFR calculation approach that does not have a coefficient for race that conforms to the NKF-ASN Task Force Recommendations. Performed By: #### 4 [id number] #### MH LAB [address] [address] Chucho Magdaleno M.D. [id number] ALP [Catalytic activity/Vol] 76 U/L Normal 40-150 [facility] Comment on above: Order Comment: [facility] has implemented the eGFR calculation approach that does not have a coefficient for race that conforms to the NKF-ASN Task Force Recommendations. Performed By: #### 4 6126 #### LAB [address] [address] Chucho Magdaleno M.D. [id number] ALT [Catalytic activity/Vol] 9 U/L Normal 0-50 U/L [facility] Comment on above: Order Comment: [facility] has implemented the eGFR calculation approach that does not have a coefficient for race that conforms to the NKF-ASN Task Force Recommendations. Performed By: #### 4 6126 #### LAB [address] [address] Chucho Magdaleno M.D. [id number] Anion gap [Moles/Vol] 12 mmol/L Normal 10-20 [facility] Comment on above: Order Comment: [facility] has implemented the eGFR calculation approach that does not have a coefficient for race that conforms to the NKF-ASN Task Force Recommendations. Performed By: #### 4 6126 #### LAB [address] [address] Chucho Magdaleno M.D. [id number] AST [Catalytic activity/Vol] 24 U/L Normal 0-50 U/L [facility] Comment on above: Order Comment: [facility] has implemented the eGFR calculation approach that does not have a coefficient for race that conforms to the NKF-ASN Task Force Recommendations. Performed By: #### 4 6126 #### LAB [address] [address] Chucho Magdaleno M.D. [id number] Bilirubin [Mass/Vol] 1.2 mg/dL Normal 0.0-1.3 [facility] Comment on above: Order Comment: [facility] has implemented the eGFR calculation approach that does not have a coefficient for race that conforms to the NKF-ASN Task Force Recommendations. Performed By: #### 4 6126 #### LAB [address] [id number] Chucho Magdaleno M.D. [id number] Calcium [Mass/Vol] 8.8 mg/dL Normal 8.4-10.2 [facility] Comment on above: Order Comment: [facility] has implemented the eGFR calculation approach that does not have a coefficient for race that conforms to the NKF-ASN Task Force Recommendations. Performed By: #### 4 6126 #### LAB [address] [address] Chucho Magdaleno M.D. [id number] Chloride [Moles/Vol] 104 mmol/L Normal 98-108 [facility] Comment on above: Order Comment: [facility] has implemented the eGFR calculation approach that does not have a coefficient for race that conforms to the NKF-ASN Task Force Recommendations. Performed By: #### 4 6126 #### LAB [address] [address] Chucho Magdaleno M.D. [id number] Creatinine [Mass/Vol] 1.18 mg/dL Normal 0.80-1.30 [facility] Comment on above: Order Comment: [facility] has implemented the eGFR calculation approach that does not have a coefficient for race that conforms to the NKF-ASN Task Force Recommendations. Performed By: #### 4 6126 #### LAB [address] [address] Chucho Magdaleno M.D. [id number] EGFR 66 mL/min/1.73 m2 Normal >=60 [facility] Comment on above: Order Comment: [facility] has implemented the eGFR calculation approach that does not have a coefficient for race that conforms to the NKF-ASN Task Force Recommendations. Result Comment: Bhavna mated GFR was calculated using the 2020 CKD-EPI creatinine equation. Performed By: #### 4 [id number] #### LAB [address] [address] Chucho Magdaleno M.D. [id number] Glucose [Mass/Vol] 107 mg/dL High 65-99 [facility] Comment on above: Order Comment: [facility] has implemented the eGFR calculation approach that does not have a coefficient for race that conforms to the NKF-ASN Task Force Recommendations. Performed By: #### 4 6126 #### LAB [address] [address] Chucho Magdaleno M.D. [id number] HCO3 (Bld) [Moles/Vol] 29 mmol/L Normal 21-32 [facility] Comment on above: Order Comment: [facility] has implemented the eGFR calculation approach that does not have a coefficient for race that conforms to the NKF-ASN Task Force Recommendations. Performed By: #### 4 6126 #### LAB [address] [address] Chucho Magdaleno M.D. [id number] Potassium [Moles/Vol] 5.5 mmol/L High 3.5-5.1 [facility] Comment on above: Order Comment: [facility] has implemented the eGFR calculation approach that does not have a coefficient for race that conforms to the NKF-ASN Task Force Recommendations. Performed By: #### 4 6126 #### LAB [address] [address] Chucho Magdaleno M.D. [id number] Protein [Mass/Vol] 6.6 g/dL Normal 6.0-8.0 [facility] Comment on above: Order Comment: [facility] has implemented the eGFR calculation approach that does not have a coefficient for race that conforms to the NKF-ASN Task Force Recommendations. Performed By: #### 4 [id number] #### LAB [address] [address] Chucho Magdaleno M.D. [id number] Sodium [Moles/Vol] 139 mmol/L Normal 135-145 [facility] Comment on above: Order Comment: [facility] has implemented the eGFR calculation approach that does not have a coefficient for race that conforms to the NKF-ASN Task Force Recommendations. Performed By: #### 4 6126 #### LAB [address] [place], [place] [address] Chucho Magdaleno M.D. [id number] Urea nitrogen [Mass/Vol] 19 mg/dL Normal 8-25 [facility] Comment on above: Order Comment: [facility] has implemented the eGFR calculation approach that does not have a coefficient for race that conforms to the NKF-ASN Task Force Recommendations. Performed By: #### 4 6126 #### LAB [address] [place], [place] [address] Chucho Magdaleno M.D. [id number] Urea nitrogen/Creatinine [Mass ratio] 16.1 mg/mg Normal 10.0-20.0 [facility] Comment on above: Order Comment: [facility] has implemented the eGFR calculation approach that does not have a coefficient for race that conforms to the NKF-ASN Task Force Recommendations. Performed By: #### 4 [id number] #### LAB [address] [address] Chucho Magdaleno M.D. [id number] Basic metabolic 2000 panelon 02-04-2023 Anion gap [Moles/Vol] 6 mmol/L Low 10 - 2 0 mmol/L [facility] Calcium [Mass/Vol] 8.9 mg/dL 8.4 - 10. 2 mg/dL [facility] Chloride [Moles/Vol] 111 mmol/L High 98 - 10 8 mmol/L [facility] Creatinine [Mass/Vol] 1.46 mg/dL High 0.80 - 1.30 mg/dL [facility] GFR/1.73 sq M.predicted CKD-EPI (S/P/Bld) [Vol rate/Area] 51 Low - PINF [facility] Comment on above: Estimated GFR was ca lculated using the 2020 CKD-EPI creatinine equation. Glucose [Mass/Vol] 96 mg/dL 65 - 99 mg/dL [facility] HCO3 [Moles/Vol] 30 mmol/L 21 - 32 mmol/L [facility] Interpretation and review of laboratory results Abnormal [facility] Potassium [Moles/Vol] 5.4 mmol/L High 3.5 - 5.1 mmol/L [facility] Sodium [Moles/Vol] 142 mmol/L 135 - 145 mmol/L [facility] Urea nitrogen [Mass/Vol] 34 mg/dL High 8 - 25 mg/dL [facility] Urea nitrogen/Creatinine [Mass ratio] 23.3 mg/mg High 10.0 - 20.0 [facility] has implemented the eGFR calculation approach that does not have a coefficient for race that conforms to the NKF-ASN Task Force Recommendations. [facility] ECG 12 leadOrdered By: Yolanda Poe on 02-04-2023 Atrial Rate [facility] P [place] [facility] P-R Interval [facility] Q-T Interval [facility] Q-T Interval (corrected) [facility] QRS Duration [facility] QTC Calculation (Bezet) [facility] R [place] [facility] T [place] [facility] Lipid 1996 panelon Cholesterol [Mass/Vol] 176 mg/dL 100 - 199 mg/dL [facility] Comment on above: National Cholesterol Education Program Guidelines: Cholesterol Desirable: <200 mg/dL Borderline High: 200-239 mg/dL High: greater than or equal to 240 mg/dL Cholesterol in HDL [Mass/Vol] 49 mg/dL 40 - 59 mg/dL [facility] Comment on above: National Cholesterol Education Program Guidelines: HDL Cholesterol Low: <40 mg/dL Near Optimal: 40-59 mg/dL High: greater than or equal to 60 mg/dL Cholesterol in LDL [Mass/Vol] 101 mg/dL 10 - 130 mg/dL [facility] Comment on above: National Cholesterol Education Program Guidelines: LDL Cholesterol Optimal: <100 mg/dL Near Optimal/above Optimal: 100-129 mg/dL Borderline High: 130-159 mg/dL High: 160-189 mg/dL Very High: greater than or equal to 190 mg/dL Cholesterol non HDL [Mass/Vol] 127 mg/dL [facility] Comment on above: National Cholesterol Education Program Guidelines: NON HDL Cholesterol Desirable: <130 mg/dL Borderline High: 130-159 mg/dL High: 160-189 mg/dL Very High: > or = 190 mg/dL Cholesterol.total/Cho lesterol in HDL [Mass ratio] 3.6 {ratio} ratio [facility] Comment on above: Males Cholesterol/HD L Ratio: Average risk: 5.0 1/2 average risk: 3.4 2 x average risk: 9.6 Triglyceride [Mass/Vol] 129 mg/dL 30 - 150 mg/dL [facility] Comment on above: National Cholesterol Education Program Guidelines: Triglyceride Normal: <150 mg/dL Borderline High: 150-199 mg/dL High: 200-499 mg/dL Very High: greater than or equal to 500 mg/dL No Panel Informationon 02-04 [facility] TSH DL <= 0.005 mIU/L Qnon 0 02-04-2023 Interpretation and review of laboratory results Normal [facility] TSH Qn 0.79 m[IU]/L [facility] Basophil percentageOrdered B y: Sampson Estrada on 10-26-2022 Bilirubin [Mass/Vol] 0.50 mg/dL 0.20-1.00 [facility] Comment on above: For patients on eltr ombopag therapy, use of Dimension [place] TBIL is not recommended. Cholesterol [Mass/Vol] 183 mg/dL <200 [facility] Comment on above: <200 mg/dL Desirable 200-240 mg/dL Borderline >240 mg/dL High Risk Protein [Mass/Vol] 6.7 g/dL 6.4-8.2 [facility] Triglyceride [Mass/Vol] 65 mg/dL <199 [facility] Comment on above: The drugs N-Acetylcy steine and Metamizole may falsely depress this assay.Serum Triglycerides Reference Interval Normal <150 mg/dL Borderline high 150 - 199 mg/dL High 200 - 499 mg/dL Very High > or = 500 mg/dL Direct bilirubinOrdered By: Sampson Estrada on 10-26-2022 Bilirubin.direct [Mass/Vol] 0.16 mg/dL 0.00-0.30 [facility] Laboratory - Chemistry and C hemistry - challengeOrdered By: Sampson Estrada on 10-26-2022 ALP [Catalytic activity/Vol] 57 U/L 45-117 [facility] ALT [Catalytic activity/Vol] 24 U/L 16-61 [facility] Globulin (S) [Mass/Vol] 3.5 g/dL 2.2-4.2 [facility] Serum or plasma albumin antonino urement (mass/volume)Ordered By: Sampson Estrada on 10-26-2022 Albumin [Mass/Vol] 3.2 g/dL 3.2-5.0 [facility] Serum or plasma cholesterol in HDL measurement (mass/volume)Ordered By: Sampson Estrada on 10-26-2022 Cholesterol in HDL [Mass/Vol] 49 mg/dL >40 [facility] Comment on above: The drugs N-Acetylcy steine and Metamizole may falsely depress this assay. Reference Range HDL <40 mg/dL Low HDL Cholesterol HDL >or= 60 mg/dL High HDL Cholesterol Serum or plasma cholesterol in VLDL measurement (mass/volume)Ordered By: Sampson Estrada on 10-26-2022 Cholesterol in VLDL [Mass/Vol] 13 mg/dL 5-40 [facility] Serum or plasma low density lipoprotein (LDL) cholesterol measurement (mass/volume)Ordered By: Sampson Estrada on 10-26-2022 Cholesterol in LDL [Mass/Vol] 121 mg/dL 0-130 [facility] Thin prep Papanicolaou smear with manual screeningOrdered By: Sampson Estrada on 10-26-2022 Thin prep Papanicolaou smear with manual screening 19 U/L 15-37 [facility] Basophil percentageon 2021 Bilirubin [Mass/Vol] 1.00 mg/dL 0.20-1.00 [facility] Work Phone: Comment on above: For patients on eltr ombopag therapy, use of Dimension [place] TBIL is not recommended. Cholesterol [Mass/Vol] 160 mg/dL <200 [facility] Work Phone: Comment on above: <200 mg/dL Desirable 200-240 mg/dL Borderline >240 mg/dL High Risk Protein [Mass/Vol] 6.7 g/dL 6.4-8.2 [facility] Work Phone: Triglyceride [Mass/Vol] 71 mg/dL <199 [facility] Work Phone: Comment on above: The drugs N-Acetylcy steine and Metamizole may falsely depress this assay.Serum Triglycerides Reference Interval Normal <150 mg/dL Borderline high 150 - 199 mg/dL High 200 - 499 mg/dL Very High > or = 500 mg/dL Direct bilirubinon Bilirubin.direct [Mass/Vol] 0.24 mg/dL 0.00-0.30 [facility] Work Phone: Laboratory - Chemistry and C hemistry - challengeon 03-25-2022 ALP [Catalytic activity/Vol] 52 U/L 45-117 [facility] Work Phone: ALT [Catalytic activity/Vol] 24 U/L 16-61 [facility] Work Phone: Globulin (S) [Mass/Vol] 3.5 g/dL 2.2-4.2 [facility] Work Phone: Serum or plasma albumin antonino urement (mass/volume)on 03-25-2022 Albumin [Mass/Vol] 3.2 g/dL 3.2-5.0 [facility] Work Phone: Serum or plasma cholesterol in HDL measurement (mass/volume)on 03-25-2022 Cholesterol in HDL [Mass/Vol] 43 mg/dL >40 [facility] Work Phone: Comment on above: The drugs N-Acetylcy steine and Metamizole may falsely depress this assay. Reference Range HDL <40 mg/dL Low HDL Cholesterol HDL >or= 60 mg/dL High HDL Cholesterol Serum or plasma cholesterol in VLDL measurement (mass/volume)on 03-25-2022 Cholesterol in VLDL [Mass/Vol] 14 mg/dL 5-40 [facility] Work Phone: Serum or plasma low density lipoprotein (LDL) cholesterol measurement (mass/volume)on 03-25-2022 Cholesterol in LDL [Mass/Vol] 103 mg/dL 0-130 [facility] Work Phone: Thin prep Papanicolaou smear with manual screeningon 03-25-2022 Thin prep Papanicolaou smear with manual screening 19 U/L 15-37 [facility] Work Phone: B12/Folateon 01-31-2022 Cobalamin (Vitamin B12) [Mass/Vol] 344 pg/mL 193 - 986 pg/mL [facility] Folate [Mass/Vol] 12.2 ng/mL 3.1 - 17.5 ng/mL [facility] Comment on above: Deficient <2.2 Borderline 2.2 - 3.0 Excessive >17.5 Interpretation and review of laboratory results Normal [facility] Comprehensive metabolic 2000 panelon 01-31-2022 Albumin [Mass/Vol] 3.3 g/dL 3.2 - 5.2 g/dL [facility] ALP [Catalytic activity/Vol] 74 U/L 40 - 150 U/L [facility] ALT [Catalytic activity/Vol] 23 U/L 14 - 65 U/L [facility] Anion gap [Moles/Vol] 10 mmol/L 10 - 2 0 mmol/L [facility] AST [Catalytic activity/Vol] 20 U/L 0 - 45 U/L [facility] Bilirubin [Mass/Vol] 1.2 mg/dL 0 - 1.3 mg/dL [facility] Calcium [Mass/Vol] 8.6 mg/dL 8.4 - 10. 2 mg/dL [facility] Chloride [Moles/Vol] 106 mmol/L 98 - 10 8 mmol/L [facility] Creatinine [Mass/Vol] 1.28 mg/dL 0.80 - 1.30 mg/dL [facility] GFR/1.73 sq M.predicted CKD-EPI (S/P/Bld) [Vol rate/Area] 60 - PINF [facility] Comment on above: Estimated GFR was ca lculated using the 2020 CKD-EPI creatinine equation. Glucose [Mass/Vol] 68 mg/dL 65 - 99 mg/dL [facility] HCO3 [Moles/Vol] 29 mmol/L 21 - 32 mmol/L [facility] Interpretation and review of laboratory results Abnormal [facility] Potassium [Moles/Vol] 4.6 mmol/L 3.5 - 5.1 mmol/L [facility] Protein [Mass/Vol] 6.9 g/dL 6 - 8 g/dL [facility] alth Sodium [Moles/Vol] 140 mmol/L 135 - 145 mmol/L [facility] Urea nitrogen [Mass/Vol] 28 mg/dL High 8 - 25 mg/dL [facility] Urea nitrogen/Creatinine [Mass ratio] 21.9 mg/mg High 10 - 20 [facility] Laborator y Services has implemented the eGFR calculation approach that does not have a coefficient for race that conforms to the NKF-ASN Task Force Recommendations. [facility] HIV 1/2 Screen ( Genera on)on 01-31-2022 HIV 1+2 Ab+HIV1 p24 Ag IA Ql Negative Negative [facility] Interpretation and review of laboratory results Normal [facility] This assay screens for the presence of HIV-1, HIV-2 antibodies and for the presence of HIV-1 antigen. Test performed using Bucky GREY immunoassay system [facility] Haptoglobinon 01-31-2022 Haptoglobin [Mass/Vol] 32.4 mg/dL Low 33 - 171 mg/dL [facility] Haptoglobin [Mass/Vol]on Interpretation and review of laboratory results Abnormal [facility] Hepatitis Panel, Acuteon HAV IgM Ql (S) Negative Negative [facility] HBV core IgM Ql (S) Negative Negative [facility] ealt HBV surface Ag Ql (S) Negative Negative [facility] HCV Ab Ql (S) Positive Abnormal Negative [facility] Comment on above: A positive antibody test requires additional follow-up testing, Hepatitis C Virus Quantitation, to determine if a person is currently infected with Hepatitis C. Interpretation and review of laboratory results Abnormal [facility] Test performed using Bucky GREY immunoassay system [facility] Iron Study with Ferritinon 0 01-31-2022 Ferritin [Mass/Vol] 215 ng/mL 30 - 400 ng/mL [facility] Interpretation and review of laboratory results Normal [facility] Iron [Mass/Vol] 82 ug/dL [facility] Iron binding capacity [Mass/Vol] 337 [facility] Iron saturation [Mass fraction] 24 % 20 - 50 % [facility] LDHon 01-31-2022 LDH Lactate to pyruvate reaction [Catalytic activity/Vol] 180 U/L 100 - 250 U/L [facility] LDH Lactate to pyruvate reac tion [Catalytic activity/Vol]on 01-31-2022 Interpretation and review of laboratory results Normal [facility] No Panel Informationon 01-31 [facility] Pathology ConsultOrdered By: Afshin Pena on 01-31-2022 Clinical information b8hlbIHbHQIum3afRUC JAqOoIiMpNgLjUyJgi8PO GmypZ3Kef8DTEoMQeauO6 oQLUfYQgsT5gmouOzeLRb N7Pwc8OjFYw9pV6mgWwzm B9iVmUgWvUlOBS6fGKnvR JmX8w0u9GzveaaBPRxfqY 9 [facility] Work Phone: Pathology report final diagnosis Narrative t9pgoNXfMSAtwNNxJOQkY MxaliVeGGLehMKvQ8Wsig gdAQuePA9gRM3iuKyyvNI heRLpGGRxBgOfg8uqc391 hFZnl6apEKLIjnmrqRv4i KzwA96de7S8GbhfB061AX jcoMdpaWBzDktrb0ybuXI 6GRvnx1YwJSVcbXntpGWu bXBsYXRlaWQtMXtcbGlzd D1ekFZqI22ixHqsoGp9Dw JpZHtcbGlzdGxldmVsXGx gwxUbctCgBZemULJkzY4y N40uFKmzpkQahpJpGKfxn rGpx1IrcfZnvFW3ORxajl SssVH4kKroGLBdCjPiVoz 0d5smLFSzuK16bMEbqpIb XgUgA51vyTbkWDyhMGJeT ON9DC44NHvov6SqRKAqvC ggOJUuwG2iLxIciBC4NJj uZmNuNFxsZXZlbGpjMFxs HJSmeSG7XDC0CXHld6vsP XZlbHRleHRcJzAyXCcwMS 93rIdqjOK6OBlzeV0jGTL vJHaxPOw9BCkmYMljVDts xQ7cRoU6c5fgdJZ1vRM3S TyvmTA5MOqmLoUwVJtcth EtodAnziQeuQD9XUtwYeZ qoZX8SMytxGOxwIM5QCcm yUM9GAp4OKl8TFoaWhrmR WYyC421JDsbjgGigmAuZh Emm5mdIPT3qQmwqNV3UaC cZmktMTgwfXtcbGlzdGxl dmVsXGxldmVsbmZjMFxsZ UIcxR3pD26uJYpmoqXzhp JfDUtljtFis3QvywAidWN 3ZXwkulXwkRU0uUrxSFYx EnDaCny9o8btFBSwrJ17n XZhgmFpYrTqC85lqPwhJh QoLXNcBWX1PZ73ROonp8I wXQGunEceHWNviK5yUwSz gIM7AIpaWdCcVXmvMLQvx AbnDHwoEOMgmLI2PTF9OB Oeq3qlRADafMLvxGFhTgU hTJvrHH98qCwseNU9BCvr bO8eIQIpDXsrNVj8RXkiC tt5PWucxH3gJyD9q8ohnN K0xYG3LCsshUE2LCkwTaS yXGxldmVsbmZjbjJcbGV2 VHbaLdUgiYQ7RLagoCZts RR5HYhupUN4DKc4AJk0OQ gyYnwqNNNlB580YHuaidY pzdZnJfShh1jeRTD1yCku nXI6REBfUsndXYiogKpqn GlzdGxldmVsXGxldmVsbm QsIModMERjpB1hA97sBUh ndqJimnHcQCfkguHkc9Bz yhDmrOH8CTrhwdWtvAH8t RjoOTZxGpW5Smz0p0zcWB ApnI69tCRwfeUuRuRfJ98 haZv3QXNqKMSvWRI3HN12 FCtuq1ZjRVUqrNxpZHAev W9fNoIzbGO0LChyNlXcEH xsZXZlbGpjMFxsZXZlbHN 8AKZ1LGTgb5zqYYAngAWy cVRqDcVaIRdeXl62sPmqz AP5MNrusM9rNOXbYZfmFZ c6UKswOsKaRYzwrL7eAmL 6j6yjtEK1vWA2HKhfwWC0 ZWxuZmMyXGxldmVsbmZjb kLfzWW2VEmeAoSfvBL7LD lpdAJonIK0KBjbrUK6NPg 7UAs8HGgvMpizBMmoV874 TTtxrjDjeeYaHnEzv3lvB LW8hFixlHV1VFOkEutkWX hooE59k2idRJxei7MvxtM sklyeSQXgBdyfp1yvTOts j5QccaKtseuuDGpnuPO8v OVqKHufo6HmwnDwhqoyNJ AulJ71POsmbtL8yOsrFOF vcnhqBmA2SDgyXIFvfnzo FNu6HVnkPEXfxXU3ZPBlm JTsA3ArBNSdAY9ntxl9KX H9VYrhWXMtGwP3OUCxaPF kSJDucVojGLhrm964ASU8 LaXbQAGdpsWogOwnsQ9fC lxmczIwIEEuICBQZXJpcG dlpyMkZWMxk47dOURdRQU yOlxwYXJcbGkxMDgwXGZp UXG0EVesnS2aISgoHJreN VxpbHZsMFxwbGFpblxmcz YmGQ0naRLqOZIds1d9lVT kmC3tl3P9mM4xsQZfXOAV lrOlxQBpo3ElhVMaj8sfw FEgX4AanDCzl6DkkV1jb3 u1KoymXRBaBL5nKQ0ivkf hYmxlIHJlZCBjZWxsIGlu MYlkXXRoQA4aUA6vfwLpb 4dgV4ruCMCwudCXhRKntO XgO3y5f4RonwqyWryoEZJ ccGFyZFxwYXJ9 [facility] Work Phone: Pathology report gross observation Narrative r6wreOPfPQOjtYYaVUOjC WpiffXmBPDcmBVjZ4Zfzg qfVJroMF3oND0zxOfyrMJ qjOUiRRBhBbEqd0wuz466 mJZxr3neHLHSyrocvHt5r LlkB59gs1X1RiizD9kvVS QwXGdyZWVuMFxibHVlMDt 9XHBhcGVydzEyMjQwXHBh iWHvcDB8PNJsOW0nbimfK HfrMIeaEYTpxyM2LEMmbR AtG2CbSMPvZM1jqujvHYP 2SOqyUUSqBDB2LgVcVYHo f7Ewkqs1RyLezWBnQFovl YEwnozodcPhZGZbV2Laxn KkOXvlFI2lMIniXsWbZQL mfqtbjCFhQNwrNiodf9Gk d07mVCDyJShfbMgesLMwl GFpbikuXHBhclxwYXJcY2 YwIFNtZWFyIHByZXBhcmV vAWvfPkGgGLC7TFqcFuAv XBHgu2XpJTnsJHOnCUMfU Z1fzQh1YQeuMMKrFrCyY4 qwr5IvSPDkVZIlfdRvFY4 ultDegXPzEBitG3cfIME4 SHYxaHAtMSPyklXeD3YjU HBhcn0= [facility] Work Phone: [facility] Work Phone: CBC and Differentialon 03-12 Basophils Auto #/vol (Bld) 0.0 K/mcL Invalid Interpretation Code 0 - 0.2 [facility] Eosinophils 0.0 K/mcL Invalid Interpretation Code 0 - 0.5 [facility] Erythrocytes (RBC) 4.69 M/mcL Invalid Interpretation Code 4.0 - 5.5 [facility] Interpretation and review of laboratory results Abnormal Invalid Interpretation Code [facility] Lymphocytes 1.5 K/mcL Invalid Interpretation Code 0.9 - 3.6 [facility] Monocytes 0.7 K/mcL High 0.2 - 0.6 [facility] Neutrophils 3.1 K/mcL Invalid Interpretation Code 1.4 - 6.8 [facility] Platelets 116 K/mcL Low 139 - 354 [facility] Segmented Neut 59.2 % Invalid Interpretation Code [facility] Comment on above: Manual differential performed. WBC (Leukocytes) 5.3 K/mcL Invalid Interpretation Code 3.6 - 10.4 [facility] CBC with Diffon 03-12-2018 Basophils Auto #/vol (Bld) 0.0 K/mcL Normal 0-0.2 [facility] Comment on above: Performed By: #### C BCDIF ####Unless otherwise noted, all testing performed by [address] [phone]: [id number] Director: Chucho Magdaleno M.D. Basophils/100 WBC Auto (Bld) 0.0 % Invalid Interpretation Code [facility] Comment on above: Performed By: #### C BCDIF ####Unless otherwise noted, all testing performed by [address] [phone]: [id number] Director: Chucho Magdaleno M.D. Eosinophils 0.0 K/mcL Normal 0-0.5 [facility] Comment on above: Performed By: #### C BCDIF ####Unless otherwise noted, all testing performed by [address] [phone]: [id number] Director: Chucho Magdaleno M.D. Eosinophils/100 leukocytes 0.0 % Invalid Interpretation Code [facility] Comment on above: Performed By: #### C BCDIF ####Unless otherwise noted, all testing performed by [address] [phone]: [id number] Director: Chucho Magdaleno M.D. Erythrocyte distribution width Auto Ratio (RBC) 14.3 % Invalid Interpretation Code 10 - 14.3 % [facility] Comment on above: Performed By: #### C BCDIF ####Unless otherwise noted, all testing performed by [address] [phone]: [id number] Director: Chucho Magdaleno M.D. Erythrocyte morphology Normal Invalid Interpretation Code Normal [facility] Comment on above: Performed By: #### C BCDIF ####Unless otherwise noted, all testing performed by [address] [phone]: [id number] Director: Chucho Magdaleno M.D. Erythrocytes (RBC) 4.69 M/mcL Normal 4.0-5.5 [facility] Comment on above: Performed By: #### C BCDIF ####Unless otherwise noted, all testing performed by [address] [phone]: [id number] Director: Chucho Magdaleno M.D. Hematocrit (HCT) 44.5 % Invalid Interpretation Code 37.9 - 49.2 % [facility] Comment on above: Performed By: #### C BCDIF ####Unless otherwise noted, all testing performed by [address] [phone]: [id number] Director: Chucho Magdaleno M.D. Hemoglobin mass conc (Bld) 15.3 g/dL Invalid Interpretation Code 12.9 - 16.9 g/dL [facility] Comment on above: Performed By: #### C BCDIF ####Unless otherwise noted, all testing performed by [address] [phone]: [id number] Director: Chucho Magdaleno M.D. Lymphocytes 1.5 K/mcL Normal 0.9-3.6 [facility] Comment on above: Performed By: #### C BCDIF ####Unless otherwise noted, all testing performed by [address], [place] [phone]: [id number] Director: Chucho Magdaleno M.D. Lymphocytes/100 leukocytes 27.6 % Invalid Interpretation Code [facility] Comment on above: Performed By: #### C BCDIF ####Unless otherwise noted, all testing performed by [address] [phone]: [id number] Director: Chucho Magdaleno M.D. MCH 32.6 pg Invalid Interpretation Code 27.7 - 34.6 pg [facility] Comment on above: Performed By: #### C BCDIF ####Unless otherwise noted, all testing performed by [address] [phone]: [id number] Director: Chucho Magdaleno M.D. MCHC mass conc (RBC) 34.4 g/dL Invalid Interpretation Code 32.9 - 35.5 g/dL [facility] Comment on above: Performed By: #### C BCDIF ####Unless otherwise noted, all testing performed by [address] [phone]: [id number] Director: Chucho Magdaleno M.D. MCV 94.8 fL Invalid Interpretation Code 82.8 - 99.3 [facility] Comment on above: Performed By: #### C BCDIF ####Unless otherwise noted, all testing performed by [address] [phone]: [id number] Director: Chucho Magdaleno M.D. Monocytes 0.7 K/mcL High 0.2-0.6 [facility] Comment on above: Performed By: #### C BCDIF ####Unless otherwise noted, all testing performed by [address] [phone]: [id number] Director: Chucho Magdaleno M.D. Monocytes/100 leukocytes 13.3 % Invalid Interpretation Code [facility] Comment on above: Performed By: #### C BCDIF ####Unless otherwise noted, all testing performed by [address] [phone]: [id number] Director: Chucho Magdaleno M.D. Neutrophils 3.1 K/mcL Normal 1.4-6.8 [facility] Comment on above: Performed By: #### C BCDIF ####Unless otherwise noted, all testing performed by [address] [phone]: [id number] Director: Chucho Magdaleno M.D. Platelet mean volume (PMV) 7.8 fL Invalid Interpretation Code 6.6 - 10.8 [facility] Comment on above: Performed By: #### C BCDIF ####Unless otherwise noted, all testing performed by [address] [phone]: [id number] Director: Chucho Magdaleno M.D. Platelets 116 K/mcL Low 139-354 [facility] Comment on above: Performed By: #### C BCDIF ####Unless otherwise noted, all testing performed by [address] [phone]: [id number] Director: Chucho Magdaleno M.D. Segmented Neut % 59.2 % Normal [facility] Comment on above: Result Comment: Cornel champion differential performed. Performed By: #### C BCDIF ####Unless otherwise noted, all testing performed by [address] [phone]: [id number] Director: Chucho Magdaleno M.D. WBC (Leukocytes) 5.3 K/mcL Normal 3.6-10.4 [facility] Comment on above: Performed By: #### C BCDIF ####Unless otherwise noted, all testing performed by [address] [phone]: [id number] Director: Chucho Magdaleno M.D. Lab Report: Lipid Profileon 07-07-2017 Cholesterol 121 mg/dL Invalid Interpretation Code 200 [facility] Work Phone: HDL Cholesterol 48 mg/dL Invalid Interpretation Code [facility] Work Phone: LDL Cholesterol 53 mg/dL Invalid Interpretation Code 0-130 [facility] Work Phone: Triglyceride 101 mg/dL Invalid Interpretation Code [facility] Work Phone: very low density lipoproteins 20 mg/dL Invalid Interpretation Code 5-40 [facility] Work Phone: Lab Report: Liver Profileon 07-07-2017 Alanine aminotransferase (ALT) 27 U/L Invalid Interpretation Code 12-78 [facility] Work Phone: Albumin 3.2 g/dL Low 3.4-5.0 [facility] Work Phone: Alkaline phosphatase (ALP) 60 U/L Invalid Interpretation Code 45-117 [facility] Work Phone: Aspartate aminotransferase (AST) 27 U/L Invalid Interpretation Code 15-37 [facility] Work Phone: Bilirubin (direct) 0.28 mg/dL Invalid Interpretation Code 0.00-0.30 [facility] Work Phone: Bilirubin (total) 1.30 mg/dL High 0.20-1.00 [facility] Work Phone: Globulin 3.6 g/dL Invalid Interpretation Code 2.2-4.2 [facility] Work Phone: Protein 6.8 g/dL Invalid Interpretation Code 6.4-8.2 [facility] Work Phone: Lab Report: CBC W/Diff, Auto matedon 02-28-2017 Absolute Neut 2.9 X10 3/UL Invalid Interpretation Code 2.0-7.7 [facility] Work Phone: Basophils/100 WBC (Bld) 0.4 % Invalid Interpretation Code 0-1 [facility] Work Phone: Basophils/100 WBC Auto (Bld) 0.4 % Invalid Interpretation Code 0-1 [facility] Work Phone: Eosinophils/100 leukocytes 1.6 % Invalid Interpretation Code 0-5 [facility] Work Phone: Eosinophils/100 WBC (Bld) 1.6 % Invalid Interpretation Code 0-5 [facility] Work Phone: Erythrocyte distribution width (RBC) [Ratio] 13.8 % Invalid Interpretation Code 11.6-14.6 [facility] Work Phone: Erythrocyte distribution width Auto Ratio (RBC) 13.8 % Invalid Interpretation Code 11.6-14.6 [facility] Work Phone: Erythrocytes (RBC) 4.57 10*6/uL Low 4.6-6.[address] [facility] Work Phone: Hematocrit (Bld) [Volume fraction] 42.6 % Invalid Interpretation Code 40-54 [facility] Work Phone: Hematocrit (HCT) 42.6 % Invalid Interpretation Code 40-54 [facility] Work Phone: Hemoglobin (Bld) [Mass/Vol] 15.0 g/dL Invalid Interpretation Code 13.0-16.5 [facility] Work Phone: Immature granulocytes/100 WBC (Bld) 0.000 % Invalid Interpretation Code 0.0-0.9 [facility] Work Phone: Lymphocytes 1.25 X10 3/UL Invalid Interpretation Code 0.83-4.51 [facility] Work Phone: Lymphocytes (Bld) [#/Vol] 1.25 X10 3/UL Invalid Interpretation Code 0.83-4.51 [facility] Work Phone: Lymphocytes/100 leukocytes 25.3 % Invalid Interpretation Code 19-41 [facility] Work Phone: Lymphocytes/100 WBC (Bld) 25.3 % Invalid Interpretation Code 19-41 [facility] Work Phone: MCH 32.8 pg High 27.0-32.0 [facility] Work Phone: MCH (RBC) [Entitic mass] 32.8 pg High 27.0-32.0 [facility] Work Phone: MCHC mass conc (RBC) 35.2 G/GL Invalid Interpretation Code 32-36 [facility] Work Phone: MCV 93.2 fL Invalid Interpretation Code 80-94 [facility] Work Phone: MCV (RBC) [Entitic vol] 93.2 fL Invalid Interpretation Code 80-94 [facility] Work Phone: mean corpuscular hemoglobin concentration, RBC 35.2 G/GL Invalid Interpretation Code 32-36 [facility] Work Phone: Monocytes/100 leukocytes 13.8 % High 0-10 [facility] Work Phone: Monocytes/100 WBC (Bld) 13.8 % High 0-10 [facility] Work Phone: neutrophil count, blood 2.9 X10 3/UL Invalid Interpretation Code 2.0-7.7 [facility] Work Phone: Neutrophils/100 WBC (Bld) 58.9 % Invalid Interpretation Code 47-70 [facility] Work Phone: Neutrophils/100 WBC Auto (Bld) 58.9 % Invalid Interpretation Code 47-70 [facility] Work Phone: Platelet mean volume (Bld) [Entitic vol] 10.1 fL Invalid Interpretation Code 6.2-12.0 [facility] Work Phone: Platelets 115 10*3/mm3 Low 150-450 [facility] Work Phone: Platelets (Bld) [#/Vol] 115 10*3/uL Low 150-450 [facility] Work Phone: PMV by Pradeep 10.1 fL Invalid Interpretation Code 6.2-12.0 [facility] Work Phone: RBC (Bld) [#/Vol] 4.57 10*6/uL Low 4.6-6.2 [facility] Work Phone: RDW SD 45.4 fL High 35.1-43.9 [facility] Work Phone: red blood cell distribution width, size density 45.4 fL High 35.1-43.9 [facility] Work Phone: WBC (Bld) [#/Vol] 4.9 10*3/uL Invalid Interpretation Code 4.4-11.0 [facility] Work Phone: WBC (Leukocytes) 4.9 10*3/uL Invalid Interpretation Code 4.4-11.0 [facility] Work Phone: Lab Report: Lipid Profileon 02-28-2017 Cholesterol [Mass/Vol] 174 mg/dL Invalid Interpretation Code 200 [facility] Work Phone: Cholesterol in HDL [Mass/Vol] 55 mg/dL Invalid Interpretation Code [facility] Work Phone: Cholesterol in LDL [Mass/Vol] 104 mg/dL Invalid Interpretation Code 0-130 [facility] Work Phone: Lipoprotein.pre-beta [Mass/Vol] 15 mg/dL Invalid Interpretation Code 5-40 [facility] Work Phone: Triglyceride [Mass/Vol] 75 mg/dL Invalid Interpretation Code [facility] [employer] Work Phone: Lab Report: Liver Profileon 02-28-2017 Albumin [Mass/Vol] 3.4 g/dL Invalid Interpretation Code 3.4-5.0 [facility] [employer] Work Phone: ALP (Bld) [Catalytic activity/Vol] 74 U/L Invalid Interpretation Code 45-117 [facility] [employer] Work Phone: ALT [Catalytic activity/Vol] 21 U/L Invalid Interpretation Code 12-78 [facility] [employer] Work Phone: AST [Catalytic activity/Vol] 19 U/L Invalid Interpretation Code 15-37 [facility] [employer] Work Phone: Bilirubin [Mass/Vol] 1.60 mg/dL High 0.20-1.00 [facility] [employer] Work Phone: Bilirubin.direct [Mass/Vol] 0.29 mg/dL Invalid Interpretation Code 0.00-0.30 [facility] [employer] Work Phone: Globulin (S) [Mass/Vol] 3.6 g/dL High 2.3-3.[address] [facility] [employer] Work Phone: Protein [Mass/Vol] 7.0 g/dL Invalid Interpretation Code 6.4-8.[address] [facility] [employer] Phone: Office Visiton 02-28-2017 Dietary management education, guidance, and counseling (procedure) yes Invalid Interpretation Code [facility] [employer] Work Phone: Documentation of current medications (procedure) Done Invalid Interpretation Code [facility] [employer] Work Phone: Fall risk assessment No Invalid Interpretation Code [facility] [employer] Work Phone: Rx Refill: eRx Request for S INGULAIR 10 MG TABLETon 04-07-2016 e-scripts messenger refill request [id number]`SINGULAIR 10 MG TABLET```90 Tablet`90`ONE TABLET BY MOUTH DAILY``2`0`12/12/2015 `No date sent`[facility]*`[id number]`0 [id number]``[address] SOD 10 MG TABLET Quantity: 90 Tablet Instructions: ONE TABLET BY MOUTH DAILY [employer] Work Phone: [facility]_RR [id number]`SINGULAIR 10 MG TABLET```90 Tablet`90`ONE TABLET BY MOUTH DAILY``2`0`12/12/2015 `No date sent`[facility]*`[id number]`0 [id number]``[address] SOD 10 MG TABLET Quantity: 90 Tablet Instructions: ONE TABLET BY MOUTH DAILY [employer] Work Phone: Office Visit: ER F/Uon 12-11 Alcoholism counseling (procedure) no Invalid Interpretation Code [place] Work Phone: Tobacco smoking status Never Invalid Interpretation Code [employer] Work Phone: Tobacco use status CPHS Never smoker Invalid Interpretation Code [employer] Work Phone: Clinical Lists Updateon 11-16 Left ventricular Ejection fraction 55 % Invalid Interpretation Code [place] Work Phone: Clinical Lists Updateon 0 Chloride [Moles/Vol] 106 mmol/L Invalid Interpretation Code [place] Work Phone: CO2 32.0 mmol/L Invalid Interpretation Code [place] Work Phone: CO2 (BldV) [Partial pressure] 32.0 mmol/L Invalid Interpretation Code [place] Work Phone: Creatinine [Mass/Vol] 0.97 mg/dL Invalid Interpretation Code [place] Work Phone: Potassium [Moles/Vol] 4.3 mmol/L Invalid Interpretation Code [employer] Work Phone: Sodium [Moles/Vol] 144 mmol/L Invalid Interpretation Code [employer] Work Phone: Urea nitrogen [Mass/Vol] 18 mg/dL Invalid Interpretation Code [place] Work Phone: Lab Report: Basic Metabolic Profile (BMP)on 11-24-2015 Anion gap 6 mmol/L Invalid Interpretation Code 5-15 [employer] Work Phone: Anion gap [Moles/Vol] 6 mmol/L Invalid Interpretation Code 5-15 [facility] [employer] Work Phone: BUN/Creatinine Ratio 18.5 RATIO Invalid Interpretation Code 10- [facility] [employer] Work Phone: Calcium [Mass/Vol] 8.2 mg/dL Low 8.5-10.1 [facility] [employer] Work Phone: calculated corrected value of creatinine clearance with body surface area 86.95 mL/min Invalid Interpretation Code [facility] [employer] Work Phone: Creatinine 86.95 mL/min Invalid Interpretation Code [facility] Work Phone: eGFR (non-black) 100 mL/min/{1.73_m2} Invalid Interpretation Code >60 [facility] [employer] Work Phone: GFR/1.73 sq M.predicted among non-blacks MDRD (S/P/Bld) [Vol rate/Area] 83 mL/min/{1.73_m2} Invalid Interpretation Code >60 [facility] [employer] Work Phone: Glomerular Filtration rate 100 mL/min Invalid Interpretation Code >60 [facility] [employer] Work Phone: Glucose [Mass/Vol] 101 mg/dL Invalid Interpretation Code 70-110 [facility] [employer] Work Phone: Urea nitrogen/Creatinine [Mass ratio] 18.1429803 mg/mg Invalid Interpretation Code 10- [facility] Work Phone: Lab Report: CK-MB Quantitati ve and Indexon 11-24-2015 CK [Catalytic activity/Vol] 87 U/L Invalid Interpretation Code 39-308 [facility] [employer] Work Phone: CK-MB (creatine kinase-MB) index, percentage 1.3 % Invalid Interpretation Code 0.0-1.4 [facility] [employer] Work Phone: CK.MB EIA [Catalytic activity/Vol] 1.1 NG/ML Invalid Interpretation Code 0.0-5.0 [place] Work Phone: CKMB 1.3 % Invalid Interpretation Code 0.0-1.4 [place] Work Phone: CKMB 1.1 ng/mL Invalid Interpretation Code 0.0-5.0 [place] Work Phone: Lab Report: Troponin-Ion Troponin I.cardiac [Mass/Vol] ng/mL Invalid Interpretation Code <0.06 [employer] Work Phone: Troponin I.cardiac mass conc ng/mL Invalid Interpretation Code <0.06 [place] Work Phone: Lab Report: PSA,Total - Amita al Screenon 09-27-2015 prostate specific antigen (PSA) screening 1.28 ng/mL Invalid Interpretation Code 0.00-4.00 [employer] Work Phone: PSA,TOT SCREEN 1.28 ng/mL Invalid Interpretation Code 0.00-4.00 [employer] Phone: External Other: Preferred Me thod of Contacton 08-30-2015 [employer]contact phone Invalid Interpretation Code [employer] Phone: Patient's prefered method of contact phone Invalid Interpretation Code [employer] Phone: Replaced Document: Edgar CHAND Observationson 08-30-2015 EKG QRS axis -12 deg Invalid Interpretation Code [employer] Phone: electrocardiogram interpretation Sinus Rhythm WITHIN NORMAL LIMITS Invalid Interpretation Code [employer] Phone: GE use only - for [employer] import when terms are not otherwise specified 414 ms Invalid Interpretation Code [employer] Phone: Heart rate 76 /min Invalid Interpretation Code [place] Work Phone: Interpretation Sinus Rhythm WITHIN NORMAL LIMITS Invalid Interpretation Code [employer] Phone: P [place] 56 deg Invalid Interpretation Code [place] Work Phone: P wave axis, electrocardiogram 56 deg Invalid Interpretation Code [employer] Phone: NC Interval 132 ms Invalid Interpretation Code [place] Work Phone: NC interval, electrocardiogram 132 ms Invalid Interpretation Code [employer] Phone: QRS axis, electrocardiogram -12 deg Invalid Interpretation Code [place] Work Phone: QRS Duration 92 ms Invalid Interpretation Code [place] Work Phone: QRS duration, electrocardiogram 92 ms Invalid Interpretation Code [employer] Phone: QT Interval new path ms Invalid Interpretation Code [place] Work Phone: QT interval, electrocardiogram new path ms Invalid Interpretation Code [place] Work Phone: QTc Mi 414 ms Invalid Interpretation Code [employer] Phone: T [place] 50 deg Invalid Interpretation Code [place] Work Phone: T wave axis, electrocardiogram 50 deg Invalid Interpretation Code [employer] Phone: Lab Report: CBC W/Diff, Auto matedon 04-04-2015 Absolute Lymphocytes 1.84 X10 3/UL Invalid Interpretation Code 0.83-4.51 [employer] Phone: Absolute Neut 2.5 X10 3/UL Invalid Interpretation Code 2.0-7.7 [employer] Phone: Absolute Neutrophil count 2.5 X10 3/UL Invalid Interpretation Code 2.0-7.7 [employer] Phone: Lymphocytes 1.84 X10 3/UL Invalid Interpretation Code 0.83-4.51 [employer] Phone: Office Visit: [facility] 08-30-19 15 cardiac risk group C Invalid Interpretation Code [employer] Phone: General cardiovascular disease 10Y risk [#] [place].Marcelino'Anaya N/A Invalid Interpretation Code [employer] Phone: Lab Report: CMPon 06-07-2014 Albumin/Globulin [Mass ratio] 1.0400783 {ratio} Normal 0.9-2.4 [place] Work Phone: Albumin/Globulin Ratio 1.1 {ratio} Normal 0.9-2.4 [employer] Work Phone: Lab Report: PTon 03-08-2014 INR Coag (PPP) [Relative time] 1.1 {INR} Normal [facility] Work Phone: prothrombin time, actual/normal, ratio 14.1 SECONDS Normal 11.7-14.9 [facility] Work Phone: PTP 14.1 SECONDS Normal 11.7-14.9 [facility] Work Phone: 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 Perla Arroyo DO Work Phone: [facility] 02-22-2025 09:22-0400 Body mass index (BMI) [Ratio] 25.7 kg/m2 Dr. Perla Arroyo DO Work Phone: [facility] 02-22-2025 09:22-0400 Body weight 86.[address] Perla Arroyo DO Work Phone: [facility] 02-22-2025 09:22-0400 Diastolic blood pressure 74 mm[Hg] Dr. Perla Arroyo DO Work Phone: [facility] 02-22-2025 09:22-0400 Heart rate 53 /min Dr. Perla Arroyo DO Work Phone: [facility] 02-22-2025 09:22-0400 Respiratory rate 18 /min Dr. Perla Arroyo DO Work Phone: [facility] 02-22-2025 09:22-0400 Systolic blood pressure 131 mm[Hg] Dr. Perla Arroyo DO Work Phone: [facility] 02-03-2025 11:02-0400 Body height 182.9 cm Pepe Loredo [employer] Work Phone: [facility] 02-03-2025 11:02-0400 Body mass index (BMI) [Ratio] 25.4 kg/m2 Pepe Loredo [employer] Work Phone: [facility] 02-03-2025 11:02-0400 Body temperature 97.81 [degF] Pepe Loredo [employer] Work Phone: [facility] 02-03-2025 11:02-0400 Body weight 84.96 kg Pepe Loredo [employer] Work Phone: [facility] 02-03-2025 11:02-0400 Diastolic blood pressure 77 mm[Hg] Pepe Loredo [employer] Work Phone: [facility] 02-03-2025 11:02-0400 Heart rate 73 /min Pepe Loredo [employer] Work Phone: [facility] 02-03-2025 11:02-0400 SaO2% (BldA) [Mass fraction] 97 % Pepe Loredo [employer] Work Phone: [facility] 02-03-2025 11:02-0400 Systolic blood pressure 130 mm[Hg] Pepe Loredo [employer] Work Phone: [facility] 12-08-2024 10:24-0400 Body height 182.9 cm Morenita Zheng [employer] RO[employer]IER Work Phone: [facility] 12-08-2024 10:24-0400 Body mass index (BMI) [Ratio] 25.8 kg/m2 Morenita Zheng [employer] RO[employer] Work Phone: [facility] 12-08-2024 10:24-0400 Body weight 86.27 kg Morenita Zheng [employer] Work Phone: [facility] 12-08-2024 10:24-0400 Diastolic blood pressure 72 mm[Hg] Morenita Zheng [employer] Work Phone: [facility] 12-08-2024 10:24-0400 Heart rate 67 /min Morenita Zheng [employer] Work Phone: [facility] 12-08-2024 10:24-0400 SaO2% (BldA) [Mass fraction] 97 % Morenita Zheng [employer] Work Phone: [facility] 12-08-2024 10:24-0400 Systolic blood pressure 132 mm[Hg] Morenita Marce [employer] Work Phone: [facility] 11-11-2024 09:16-0400 Body mass index (BMI) [Ratio] 25.4 kg/m2 Dr. Perla Arroyo DO Work Phone: [facility] 11-11-2024 09:16-0400 Body weight 85.[address] Perla Arroyo DO Work Phone: [facility] 11-11-2024 09:16-0400 Diastolic blood pressure 92 mm[Hg] Dr. Perla Arroyo DO Work Phone: [facility] 11-11-2024 09:16-0400 Heart rate 60 /min Dr. Perla Arroyo DO Work Phone: [facility] 11-11-2024 09:16-0400 Respiratory rate 16 /min Dr. Perla Arroyo DO Work Phone: [facility] 11-11-2024 09:16-0400 Systolic blood pressure 160 mm[Hg] Dr. Perla Arroyo DO Work Phone: [facility] 05-04-2024 08:47-0400 Diastolic blood pressure 88 mm[Hg] Erlin Alcaraz MD Work Phone: [facility] 05-04-2024 08:47-0400 Systolic blood pressure 163 mm[Hg] Erlin Alcaraz MD Work Phone: [facility] 05-04-2024 08:14-0400 Body height 182.9 cm Erlin Alcaraz MD Work Phone: [facility] 05-04-2024 08:14-0400 Body mass index (BMI) [Ratio] 26.39 kg/m2 Erlin Alcaraz MD Work Phone: [facility] 05-04-2024 08:14-0400 Body weight 88.27 kg Erlin Alcaraz MD Work Phone: [facility] 05-04-2024 08:14-0400 Heart rate 69 /min Erlin Alcaraz MD Work Phone: [facility] 05-04-2024 08:14-0400 SaO2% (BldA) [Mass fraction] 97 % Erlin Alcaraz MD Work Phone: [facility] 01-29-2024 10:18-0400 Body height 182.9 cm Pepe Loredo [employer] Work Phone: [facility] 01-29-2024 10:18-0400 Body mass index (BMI) [Ratio] 26.51 kg/m2 Pepe Loredo [employer] Work Phone: [facility] 01-29-2024 10:18-0400 Body temperature 97.9 [degF] Pepe Loredo [employer] Work Phone: [facility] 01-29-2024 10:18-0400 Body weight 88.68 kg Pepe Loredo [employer] Work Phone: [facility] 01-29-2024 10:18-0400 Diastolic blood pressure 93 mm[Hg] Pepe Loredo [employer]IER Work Phone: [facility] 01-29-2024 10:18-0400 Heart rate 73 /min Pepe Loredo [employer]IER Work Phone: [facility] 01-29-2024 10:18-0400 SaO2% (BldA) [Mass fraction] 97 % Pepe Loredo CNP Work Phone: [facility] 01-29-2024 10:18-0400 Systolic blood pressure 173 mm[Hg] Pepe Loredo [employer] Work Phone: [facility] 02-04-2023 10:32-0400 Body mass index (BMI) [Ratio] 27.12 kg/m2 Erlin Alcaraz MD Work Phone: [facility] 02-04-2023 10:32-0400 Body weight 90.72 kg Erlin Alcaraz MD Work Phone: [facility] 02-04-2023 10:32-0400 Diastolic blood pressure 86 mm[Hg] Erlin Alcaraz MD Work Phone: [facility] 02-04-2023 10:32-0400 Heart rate 69 /min Erlin Alcaraz MD Work Phone: [facility] 02-04-2023 10:32-0400 SaO2% (BldA) [Mass fraction] 98 % Erlin Alcaraz MD Work Phone: [facility] 02-04-2023 10:32-0400 Systolic blood pressure 138 mm[Hg] Erlin Alcaraz MD Work Phone: [facility] 01-30-2023 09:46-0400 Body height 182.9 cm Pepe Loredo [employer] Work Phone: [facility] 01-30-2023 09:46-0400 Body mass index (BMI) [Ratio] 27.3 kg/m2 Pepe Loredo [employer] Work Phone: [facility] 01-30-2023 09:46-0400 Body temperature 98.01 [degF] Pepe Loredo [employer] Work Phone: [facility] 01-30-2023 09:46-0400 Body weight 91.31 kg Pepe Loredo [employer] Work Phone: [facility] 01-30-2023 09:46-0400 Diastolic blood pressure 90 mm[Hg] Pepe Loredo [employer] Work Phone: [facility] 01-30-2023 09:46-0400 Heart rate 72 /min Pepe Loredo CNP Work Phone: [facility] 01-30-2023 09:46-0400 SaO2% (BldA) [Mass fraction] 97 % Pepe Loredo CNP Work Phone: [facility] 01-30-2023 09:46-0400 Systolic blood pressure 157 mm[Hg] Pepe Loredo CNP Work Phone: [facility] 10-28-2022 14:22-0400 Body height 182.[address] Perla Arroyo Work Phone: [facility] 10-28-2022 14:22-0400 Body mass index (BMI) [Ratio] 27.1 kg/m2 Dr. Perla Arroyo Work Phone: [facility] 10-28-2022 14:22-0400 Body weight 90.[address] Perla Arroyo Work Phone: [facility] 10-28-2022 14:22-0400 Diastolic blood pressure 82 mm[Hg] Dr. Perla Arroyo Work Phone: [facility] 10-28-2022 14:22-0400 Heart rate 68 /min Dr. Perla Arroyo Work Phone: [facility] 10-28-2022 14:22-0400 Respiratory rate 16 /min Dr. Perla Arroyo Work Phone: [facility] 10-28-2022 14:22-0400 Systolic blood pressure 144 mm[Hg] Dr. Perla Arroyo Work Phone: [facility] 02-21-2022 08:26-0400 Body height 182.[address] Perla Arroyo Work Phone: [facility] Work Phone: 02-21-2022 08:26-0400 Body mass index (BMI) [Ratio] 26 kg/m2 Dr. Perla Arroyo Work Phone: [facility] Work Phone: 02-21-2022 08:26-0400 Body weight 87.[address] Perla Arroyo Work Phone: [facility] Work Phone: 02-21-2022 08:26-0400 Diastolic blood pressure 89 mm[Hg] Dr. Perla Arroyo Work Phone: [facility] Work Phone: 02-21-2022 08:26-0400 Heart rate 79 /min Dr. Perla Arroyo Work Phone: [facility] Work Phone: 02-21-2022 08:26-0400 Respiratory rate 16 /min Dr. Perla Arroyo Work Phone: [facility] Work Phone: 02-21-2022 08:26-0400 Systolic blood pressure 143 mm[Hg] Dr. Perla Arroyo Work Phone: [facility] Work Phone: 01-31-2022 10:03-0400 Body height 182.9 cm Pepe Loredo [employer] RO[employer] C[employer]IER Work Phone: [facility] 01-31-2022 10:03-0400 Body mass index (BMI) [Ratio] 25.99 kg/m2 Pepe Loredo [employer] RO[employer]IER Work Phone: [facility] 01-31-2022 10:03-0400 Body temperature 97.7 [degF] Pepe Loredo [employer]IER Work Phone: [facility] 01-31-2022 10:03-0400 Body weight 86.91 kg Pepe Loredo [employer]IER Work Phone: [facility] 01-31-2022 10:03-0400 Diastolic blood pressure 75 mm[Hg] Pepe Loredo [employer] RO[employer]IER Work Phone: [facility] 01-31-2022 10:03-0400 Heart rate 67 /min Pepe Loredo [employer] Work Phone: [facility] 01-31-2022 10:03-0400 SaO2% (BldA) [Mass fraction] 98 % Pepe Loredo [employer] RO[employer]IER Work Phone: [facility] 01-31-2022 10:03-0400 Systolic blood pressure 143 mm[Hg] Pepe Loredo [employer] RO[employer]IER Work Phone: [facility] 02-01-2021 10:56-0400 Body temperature 98.01 [degF] Pepe Loredo [employer]IER Work Phone: [facility] 02-01-2021 10:56-0400 Diastolic blood pressure 91 mm[Hg] Pepe Loredo [employer] RO[employer]IER Work Phone: [facility] 02-01-2021 10:56-0400 Heart rate 67 /min Pepe Loredo [employer] RO[employer]IER Work Phone: [facility] 02-01-2021 10:56-0400 SaO2% (BldA) [Mass fraction] 97 % Pepe Loredo [employer] RO[employer]IER Work Phone: [facility] 02-01-2021 10:56-0400 Systolic blood pressure 153 mm[Hg] Pepe Loredo [employer] RO[employer]IER Work Phone: [facility] 02-01-2021 10:55-0400 Body height 182.9 cm Pepe Loredo [employer] RO[employer]IER Work Phone: [facility] 02-01-2021 10:55-0400 Body mass index (BMI) [Ratio] 27.23 kg/m2 Pepe Loredo [employer] RO[employer]IER Work Phone: [facility] 02-01-2021 10:55-0400 Body weight 91.08 kg Pepe Loredo [employer] RO[employer]IER Work Phone: [facility] 03-09-2020 10:34-0400 Body Temperature 97.9 [degF] Felipe Jasso [facility] 03-09-2020 10:34-0400 BP Diastolic 103 mm[Hg] Felipe Jasso [facility] 03-09-2020 10:34-0400 BP Systolic 181 mm[Hg] Felipe Jasso [facility] 03-09-2020 10:34-0400 Pulse (Heart Rate) 80 /min Felipe Jasso [facility] 03-09-2020 10:34-0400 Pulse Oximetry 97 % [facility] 03-09-2020 10:33-0400 BMI (Body Mass Index) 27.17 kg/m2 [facility] 03-09-2020 10:33-0400 Body weight 90.86 kg [facility] 03-09-2020 10:33-0400 Height 182.9 cm [facility] 03-11-2019 10:01-0400 BP Diastolic 94 mm[Hg] [facility] 03-11-2019 10:01-0400 BP Systolic 178 mm[Hg] [facility] 03-11-2019 09:55-0400 Body Temperature 97.7 [degF] [facility] 03-11-2019 09:55-0400 Pulse (Heart Rate) 71 /min [facility] 03-11-2019 09:55-0400 Pulse Oximetry 97 % [facility] 03-11-2019 09:52-0400 BMI (Body Mass Index) 27.23 kg/m2 [facility] 03-11-2019 09:52-0400 Body weight 91.08 kg [facility] 03-11-2019 09:52-0400 Height 182.9 cm [facility] 03-12-2018 10:16-0400 BMI (Body Mass Index) 26.31 kg/m2 [facility] 03-12-2018 10:16-0400 Body Temperature 97.9 [degF] [facility] 03-12-2018 10:16-0400 BP Diastolic 87 mm[Hg] [facility] 03-12-2018 10:16-0400 BP Systolic 141 mm[Hg] [facility] 03-12-2018 10:16-0400 Height 182.9 cm [facility] 03-12-2018 10:16-0400 Pulse (Heart Rate) 80 /min [facility] 03-12-2018 10:16-0400 Pulse Oximetry 97 % [facility] 03-12-2018 10:16-0400 Weight 88 kg [facility] 02-28-2017 15:40-0400 Body height 180.97 cm [facility] Work Phone: 02-28-2017 15:40-0400 Body mass index (BMI) [Ratio] 26.31 kg/m2 Chantalle Jose Angel [facility] Work Phone: 02-28-2017 15:40-0400 Body weight 86.18 kg [facility] Work Phone: 02-28-2017 15:40-0400 Diastolic blood pressure 92 mm[Hg] Martha Walter [facility] Work Phone: 02-28-2017 15:40-0400 Heart rate 84 /min [facility] Work Phone: 02-28-2017 15:40-0400 Respiratory rate 16 /min [facility] Work Phone: 02-28-2017 15:40-0400 Systolic blood pressure 164 mm[Hg] Martha Walter [facility] Work Phone: 02-28-2017 15:40-0400 Weight 86.18 kg Barb Cm PA-C [facility] Work Phone: 06-13-2016 15:04-0400 Body mass index (BMI) [Ratio] 27.36 kg/m2 Tray Nathan MD [facility] Work Phone: 06-13-2016 15:04-0400 Body surface area Derived from formula 2.11 m2 Tray Nathan MD [facility] Work Phone: 06-13-2016 15:04-0400 Body weight 89.63 kg Tray Nathan MD [facility] Work Phone: 06-13-2016 15:04-0400 Diastolic blood pressure 82 mm[Hg] Tray Nathan MD [facility] Work Phone: 06-13-2016 15:04-0400 Heart rate 76 /min Tray Nathan MD [facility] Work Phone: 06-13-2016 15:04-0400 Respiratory rate 16 /min Tray Nathan MD [facility] Work Phone: 06-13-2016 15:04-0400 Systolic blood pressure 132 mm[Hg] Tray Nathan MD [facility] Work Phone: 12-12-2015 13:48-0400 Body temperature 98 [degF] Tray Nathan MD [facility] Work Phone: 01-16-2015 15:23-0400 Body height 180.97 cm Tray Nathan MD [facility] Work Phone: 01-16-2015 15:23-0400 Diastolic blood pressure 92 mm[Hg] Tray Nathan MD [facility] Work Phone: 01-16-2015 15:23-0400 Systolic blood pressure 142 mm[Hg] Tray Nathan MD [facility] Work Phone: Encounters Encounter Date Encounter Type Care Provider Facility Start: 02-22-2025 End: 02-22-[address] 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); Thrombocytopenia; Neoplastic malignant related fatigue; Status post administration of cardiotoxic chemotherapy; Hyperkalemia Start: 02-03-2025 End: 02-03-2025 ambulatory [facility] Start: 01-31-2025 End: 01-31-2025 Orders Only Tammy Soto RN [facility] Comment on above: 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) Start: 12-10-2024 End: 12-14-2024 Follow-up encounter Erlin Alcaraz MD Work Phone: [facility] Comment on above: Basic metabolic pane l Start: 12-08-2024 End: 12-08-2024 Office outpatient visit 15 minutes Moernita Zheng [facility] Work Phone: [facility] Comment on above: PAF (paroxysmal atri al fibrillation) (HCC) (Primary Dx); Hypertension, unspecified type; Hyperlipidemia, unspecified hyperlipidemia type Start: 12-08-2024 End: 12-08-2024 ambulatory [facility] Start: 11-11-2024 End: 11-11-2024 Patient encounter procedure Barb Cm [facility] -[facility] Work Phone: Start: 11-11-2024 End: 11-11-2024 ambulatory [facility] Start: 09-09-2024 End: 09-09-2024 ambulatory [facility] Facility:[facility] Start: 09-08-2024 End: 09-08-2024 ambulatory Sampson Estrada Facility:[facility] Start: 05-25-2024 End: 05-29-2024 ambulatory [facility] Start: 05-04-2024 End: 05-04-2024 Office outpatient visit 15 minutes Erlin Alcaraz MD Work Phone: [facility] Comment on above: PAF (paroxysmal atri al fibrillation) (HCC) (Primary Dx); Hypertension, unspecified type; Hyperlipidemia, unspecified hyperlipidemia type; Hepatitis Start: 05-04-2024 End: 05-04-2024 ambulatory VIR[facility]KUMAR M. 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); Status post administration of cardiotoxic chemotherapy; Fatigue, unspecified type; Thrombocytopenia (HCC); Hyperkalemia Start: 01-26-2024 End: 01-30-2024 ambulatory [facility] Start: 02-04-2023 End: 02-04-2023 Office outpatient new 45 minutes Pepe Loredo TUBE ROOM CASHIER Work Phone: [facility] Comment on above: Fatigue, unspecified type (Primary Dx); Acute myeloid leukemia in remission (HCC); Status post administration of cardiotoxic chemotherapy; Chronic hepatitis C without hepatic coma (HCC); Hyperlipidemia, unspecified hyperlipidemia type; Hyperkalemia; Hypertension, unspecified type Start: 01-30-2023 End: 01-30-2023 Office outpatient visit 25 minutes Pepe Loredo TUBE ROOM CASHIER Work Phone: [facility] Comment on above: Thrombocytopenia (HC C) (Primary Dx); Acute myeloid leukemia in remission (HCC); Fatigue, unspecified type; Status post administration of cardiotoxic chemotherapy Start: 10-28-2022 End: 10-28-[address] Perla Arroyo Work Phone: [facility] Start: 10-26-2022 End: 10-26-[address] Perla Arroyo Work Phone: [facility] Work Phone: Start: 10-26-2022 End: 10-26-[address] Perla Arroyo Work Phone: [facility] Start: 10-15-2022 Non-patient / Non-visit Dr. Elidia Arroyo Work Phone: [facility] Start: 03-27-2022 Non-patient / Non-visit Dr. Elidia Arroyo Work Phone: [facility] Start: 03-27-2022 End: 03-27-[address] Perla Arroyo Work Phone: [facility] Start: 03-25-2022 End: 03-25-[address] Perla Arroyo Work Phone: [facility] Start: 02-21-2022 End: 02-21-[address] Perla Arroyo Work Phone: [facility] Start: 01-31-2022 End: 01-31-2022 Office outpatient visit 15 minutes Pepekatie Loredo TUBE ROOM CASHIER Work Phone: [facility] Comment on above: Thrombocytopenia (HC C) (Primary Dx); Acute myeloid leukemia in remission (HCC) Start: 07-03-2021 Orders Only Pepekatie Alatorree ld TUBE ROOM CASHIER Work Phone: [facility] Comment on above: Thrombocytopenia (HC C) (Primary Dx) Start: 02-01-2021 End: 02-01-2021 Office outpatient visit 25 minutes Pepe L Facundo TUBE ROOM CASHIER Work Phone: [facility] Comment on above: 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); Thrombocytopenia (HCC) Start: 10-12-2020 End: 10-12-2020 Orders Only Abby Baker Work Phone: [facility] Start: 03-09-2020 End: 03-09-2020 Office outpatient visit 25 minutes Felipe Jasso Work Phone: [facility] Comment on above: 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); Thrombocytopenia (HCC); Pain due to onychomycosis of toenails of both feet Start: 03-11-2019 End: 03-11-2019 Office outpatient visit 15 minutes Felipe Jasso Work Phone: [facility] Comment on above: 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 Perla Arroyo Work Phone: Start: 02-28-2017 End: 02-28-2017 Dietary management education, guidance, and counseling Martha Walter Start: 02-28-2017 End: 02-28-2017 Documentation of current medications Martha Walter Start: 02-28-2017 End: 03-05-2017 *Hepatic Function Panel Tray Nathan MD Start: 02-28-2017 End: 02-28-2017 Follow Up Appt 6 months Tray Nathan MD Start: 02-28-2017 End: 03-05-2017 Lipid 1996 panel - Serum or Plasma Tray Nathan MD Start: 02-28-2017 End: 02-28-2017 MMM Tray Nathan MD Start: 02-28-2017 End: 03-05-2017 Hepatic function 2000 panel - Serum or Plasma Tray Nathan MD Start: 02-28-2017 End: 03-05-2017 Lipid 1996 panel - Serum or Plasma Tray Nathan MD Start: 02-28-2017 End: 02-28-2017 Rpr 1st ingun hrna age 6 yrs/> reducible Tray Nathan MD Start: 12-03-2016 End: 07-07-2017 *Hepatic Function Panel Tray Nathan MD Start: 12-03-2016 End: 07-07-2017 Lipid 1996 panel - Serum or Plasma Tray Nathan MD Start: 06-13-2016 End: 06-13-2016 Documentation of current medications Tray Nathan MD Start: 06-13-2016 End: 06-13-2016 Follow Up Appt Other Barb sun PA-C Work Phone: Start: 06-13-2016 End: 06-13-2016 Follow Up Appt Other Barb sun PA-C Work Phone: Start: 03-27-2016 End: 06-04-2016 *Hepatic Function Panel Tray Nathan MD Start: 03-27-2016 End: 06-04-2016 Lipid 1996 panel - Serum or Plasma Tray Nathan MD Start: 03-27-2016 End: 06-04-2016 Hepatic function 2000 panel - Serum or Plasma Tray Nathan MD Start: 03-27-2016 End: 06-04-2016 Lipid 1996 panel - Serum or Plasma Tray Nathan MD Start: 12-12-2015 End: 01-01-2016 *CBC with Differential Perla Gomez Work Phone: Start: 12-12-2015 End: 12-12-2015 Alcoholism counseling Tray Nathan MD Start: 12-12-2015 End: 01-01-2016 CBC W Auto Differential panel - Blood Perla Arroyo DO Work Phone: Start: 12-11-2015 End: 12-11-2015 Dietary management education, guidance, and counseling Tray Nathan MD Start: 12-11-2015 End: 12-11-2015 Follow Up Appt 6 months Tray Nathan MD Start: 12-11-2015 End: 12-11-2015 MMM Tray Nathan MD Start: 12-11-2015 End: 12-11-2015 Follow Up Appt 6 months Tray Nathan MD Start: 12-11-2015 End: 12-11-2015 Lipid 1996 panel Tray Nathan MD Start: 10-06-2015 End: 05-31-2016 *Hepatic Function Panel Tray Nathan MD Start: 10-06-2015 End: 05-31-2016 Hepatic function 2000 panel - Serum or Plasma Tray Nathan MD Start: 09-27-2015 End: 09-27-2015 Lipid 1996 panel - Serum or Plasma Tray Nathan MD Start: 09-27-2015 End: 09-27-2015 Lipid 1996 panel - Serum or Plasma Tray Nathan MD Start: 08-30-2015 End: 08-30-2015 Ecg routine ecg w/least 12 lds w/i&r Barb Cm PA-C Work Phone: Start: 08-30-2015 End: 08-30-2015 Follow Up Appt 6 months Barb dinero PA-C Work Phone: Start: 08-30-2015 End: 08-30-2015 PFM Barb Cm PA-C Work Phone: Start: 08-30-2015 End: 08-30-2015 Ecg routine ecg w/least 12 lds w/i&r Barb Cm PA-C Work Phone: Start: 08-30-2015 End: 08-30-2015 Lipid 1996 panel Barb Cm PA-C Work Phone: Start: 08-30-2015 End: 08-30-2015 PFM Barb Cm PA-C Work Phone: Start: 08-04-2015 End: 10-09-2016 *CBC with Differential Perla A Cruz D O Work Phone: Start: 08-04-2015 End: 10-09-2016 CBC W Auto Differential panel - Blood Perla A Cruz DO Work Phone: Start: 04-21-2015 End: 10-09-2016 *CBC with Differential Perla A Cruz D O Work Phone: Start: 04-21-2015 End: 10-09-2016 CBC W Auto Differential panel - Blood Perla A Cruz DO Work Phone: Start: 04-04-2015 End: 04-04-2015 *CBC with Differential Perla A Cruz D O Work Phone: Start: 04-04-2015 End: 04-04-2015 CBC W Auto Differential panel - Blood Perla A Cruz DO Work Phone: Start: 03-14-2015 End: 04-04-2015 *Hepatic Function Panel Tray Nathan MD Start: 03-14-2015 End: 04-04-2015 Lipid 1996 panel - Serum or Plasma Tray Nathan MD Start: 03-14-2015 End: 04-04-2015 Hepatic function 2000 panel - Serum or Plasma Tray Nathan MD Start: 03-14-2015 End: 04-04-2015 Lipid 1996 panel - Serum or Plasma Tray Nathan MD Start: 02-27-2015 End: 02-28-2015 Documentation of current medications Tray aNthan MD Start: 02-27-2015 End: 02-27-2015 Follow Up Appt 6 months Tray Nathan MD Start: 02-27-2015 End: 02-27-2015 MMM Tray Nathan MD Start: 02-27-2015 End: 02-28-2015 Documentation of current medications Tray Nathan MD Start: 02-27-2015 End: 02-27-2015 Lipid 1996 panel Tray Nathan MD Start: 02-27-2015 End: 02-27-2015 MMM Tray Nathan MD Start: 01-16-2015 End: 10-09-2016 *CBC with Differential Perla Benson O Work Phone: Start: 01-16-2015 End: 10-09-2016 CBC W Auto Differential panel - Blood Perla Arroyo DO Work Phone: Start: 08-30-2014 End: 08-30-2014 Follow Up Appt Other Barb sun PA-C Work Phone: Start: 08-30-2014 End: 08-30-2014 PFM aBrb Cm PA-C Work Phone: Start: 08-30-2014 End: 08-30-2014 Follow Up Appt Other Barb sun PA-C Work Phone: Start: 08-30-2014 End: 08-30-2014 PFM Barb Cm PA-C Work Phone: Start: 08-18-2014 End: 08-30-2014 *Hepatic Function Panel Barb dinero PA-C Work Phone: Start: 08-18-2014 End: 08-30-2014 Lipid 1996 panel - Serum or Plasma Barb Cm PA-C Work Phone: Start: 08-18-2014 End: 08-30-2014 Hepatic function 2000 panel - Serum or Plasma Barb Cm PA-C Work Phone: Start: 08-18-2014 End: 08-30-2014 Lipid 1996 panel - Serum or Plasma Barb Cm PA-C Work Phone: Start: 03-08-2014 End: 03-08-2014 Nurse, Teaching, Wound Check (no charge) Tray Nathan MD Start: 03-08-2014 End: 03-08-2014 Lipid 1996 panel Tray Nathan MD Start: 03-07-2014 End: 03-08-2014 *BMP Tray Nathan MD Start: 03-07-2014 End: 03-08-2014 aPTT in Platelet poor plasma by Coagulation assay Tray Nathan MD Start: 03-07-2014 End: 03-08-2014 CBC W Auto Differential panel - Blood Tray Nathan MD Start: 03-07-2014 End: 08-23-2014 Chest x-ray rTay Nathan MD Start: 03-07-2014 End: 03-08-2014 INR in Platelet poor plasma by Coagulation assay Tray Nathan MD Start: 03-07-2014 End: 03-08-2014 aPTT in Platelet poor plasma by Coagulation assay Tray Nathan MD Start: 03-07-2014 End: 03-08-2014 Basic metabolic 2000 panel - Serum or Plasma Tray Nathan MD Start: 03-07-2014 End: 03-08-2014 CBC W Auto Differential panel - Blood Tray Nathan MD Start: 03-07-2014 End: 08-23-2014 Chest x-ray Tray Nathan MD Start: 03-07-2014 End: 03-08-2014 INR in Platelet poor plasma by Coagulation assay Tray Nathan MD Start: 03-04-2014 End: 03-16-2014 Left Heart Cath Tray Nathan MD Start: 03-04-2014 End: 03-16-2014 Left Heart Cath Tray Nathan MD Start: 02-28-2014 End: 02-28-2014 Ecg routine ecg w/least 12 lds w/i&r Tray Nathan MD Start: 02-28-2014 End: 02-28-2014 Follow Up Appt 6 months Tray Nathan MD Start: 02-28-2014 End: 02-28-2014 MMM Tray Nathan MD Start: 02-28-2014 End: 03-16-2014 Nuclear stress test -exercise Tray Nathan MD Start: 02-28-2014 End: 02-28-2014 Ecg routine ecg w/least 12 lds w/i&r Tray Nathan MD Start: 02-28-2014 End: 02-28-2014 ЕЛЕНАM Tray Nathan MD Start: 02-28-2014 End: 03-16-2014 Nuclear stress test -exercise Tray Nathan MD Start: 02-15-2014 End: 02-22-2014 *Hepatic Function Panel Tray Nathan MD Start: 02-15-2014 End: 02-22-2014 Lipid 1996 panel - Serum or Plasma Tray Nathan MD Start: 02-15-2014 End: 02-22-2014 Hepatic function 2000 panel - Serum or Plasma Tray Nathan MD Start: 02-15-2014 End: 02-22-2014 Lipid 1996 panel - Serum or Plasma Tray Nathan MD Start: 08-23-2013 End: 02-21-2014 Ecg routine ecg w/least 12 lds w/i&r Barb Cm PA-C Work Phone: Start: 08-23-2013 End: 08-23-2013 Follow Up Appt 6 months Barb dinero PA-C Work Phone: Start: 08-23-2013 End: 08-23-2013 Follow Up Appt Other Barb sun PA-C Work Phone: Start: 08-23-2013 End: 08-23-2013 PFM Barb Cm PA-C Work Phone: Start: 08-23-2013 End: 02-21-2014 Ecg routine ecg w/least 12 lds w/i&r Barb Cm PA-C Work Phone: Start: 08-23-2013 End: 08-23-2013 Follow Up Appt 6 months Barb dinero PA-C Work Phone: Start: 08-23-2013 End: 08-23-2013 Follow Up Appt Other Barb sun PA-C Work Phone: Start: 08-23-2013 End: 08-23-2013 Lipid 1996 panel Barb Cm PA-C Work Phone: Start: 12-16-2012 End: 08-23-2013 *Hepatic Function Panel Wiley portillo MD Start: 12-16-2012 End: 08-23-2013 Lipid 1996 panel - Serum or Plasma Wiley Dailey MD Start: 12-16-2012 End: 08-23-2013 Hepatic function 2000 panel - Serum or Plasma Wiley Dailey MD Start: 12-16-2012 End: 08-23-2013 Lipid 1996 panel - Serum or Plasma Wiley Dailey MD Start: 05-20-2012 End: 06-30-2012 *Hepatic Function Panel Wiley portillo MD Start: 05-20-2012 End: 06-30-2012 Lipid 1996 panel - Serum or Plasma Wiley Dailey MD Start: 05-20-2012 End: 06-30-2012 Hepatic function 2000 panel - Serum or Plasma Wiley Dailey MD Start: 05-20-2012 End: 06-30-2012 Lipid 1996 panel - Serum or Plasma Wiley Dailey MD Start: 03-02-2012 End: 03-02-2012 Follow Up Appt 6 months Wiley portillo MD Start: 03-02-2012 End: 03-02-2012 Lipid 1996 panel Wiley calle MD Start: 08-29-2011 End: 08-29-2011 *Hepatic Function Panel Wiley portillo MD Start: 08-29-2011 End: 02-12-2012 Arterial exam Wiley calle MD Start: 08-29-2011 End: 08-29-2011 Follow Up Appt 6 months Wiley portillo MD Start: 08-29-2011 End: 08-29-2011 Lipid 1996 panel - Serum or Plasma Wiley Dailey MD Start: 08-29-2011 End: 08-29-2011 Hepatic function 2000 panel - Serum or Plasma Wiley Dailey MD Start: 08-29-2011 End: 02-12-2012 Lipid 1996 panel - Serum or Plasma Wiley Dailey MD Plan of Treatment Date Care Activity Detail Author Start: 02-03-2026 End: 02-03-2026 Complete blood count with white cell differential, manual CBC and Differential Lab Routine Acute myeloid leukemia in remission (HCC) Expected: 02/03/2026, Expires: 02/03/2026 [facility] Work Phone: Comment on above: Expected: 02/03/2026, Expires: Start: 02-03-2026 End: 02-03-2026 Comprehensive metabolic 2000 panel - Serum or Plasma Comprehensive Metabolic Panel Lab Routine Acute myeloid leukemia in remission (HCC) Expected: 02/03/2026, Expires: 02/03/2026 [facility] Comment on above: Expected: 02/03/2026, Expires: Start: 02-03-2026 End: 02-03-2026 Lactate dehydrogenase [Enzymatic activity/volume] in Serum or Plasma by Lactate to pyruvate reaction LDH Lab Routine Acute myeloid leukemia in remission (HCC) Expected: 02/03/2026, Expires: 02/03/2026 [facility] Comment on above: Expected: 02/03/2026, Expires: Start: 02-02-2026 End: 02-02-2026 Patient encounter procedure 02/02/2026 10:00 AM EDT Office Visit [facility] [address] [id number] Pepe Loredo, TUBE ROOM CASHIER [address] [phone] [facility] Start: 04-18-2025 Influenza vaccination Influenza Vaccine (Season Ended) [facility] Start: 02-03-2025 End: 02-03-2025 Patient encounter procedure 02/03/2025 11:00 AM EDT Office Visit [facility] [address] [place], [place] [id number] Pepe Loredo, TUBE ROOM CASHIER [address] [phone] [facility] Start: 01-28-2025 End: 01-28-2025 Complete blood count with white cell differential, manual CBC and Differential Lab Routine Acute myeloid leukemia in remission (HCC) Expected: 01/28/2025, Expires: 01/28/2025 [facility] Work Phone: Comment on above: Expected: 01/28/2025, Expires: Start: 01-28-2025 End: 01-28-2025 Comprehensive metabolic 2000 panel - Serum or Plasma Comprehensive Metabolic Panel Lab Routine Acute myeloid leukemia in remission (HCC) Expected: 01/28/2025, Expires: 01/28/2025 [facility] Comment on above: Expected: 01/28/2025, Expires: Start: 01-28-2025 End: 01-28-2025 Lactate dehydrogenase [Enzymatic activity/volume] in Serum or Plasma by Lactate to pyruvate reaction LDH Lab Routine Acute myeloid leukemia in remission (HCC) Expected: 01/28/2025, Expires: 01/28/2025 [facility] Comment on above: Expected: 01/28/2025, Expires: Start: 12-28-2024 End: 12-14-2025 Basic metabolic 2000 panel - Serum or Plasma Basic metabolic panel Lab Routine Hyperkalemia Expected: 12/28/2024, Expires: 12/14/2025 [facility] Work Phone: Comment on above: Expected: 12/28/2024, Expires: 6 Start: 05-18-2024 End: 05-04-2025 Basic metabolic 2000 panel - Serum or Plasma Basic metabolic panel Lab Routine Hypertension, unspecified type Expected: 05/18/2024, Expires: 05/04/2025 [facility] Work Phone: Comment on above: Expected: 05/18/2024, Expires: 5 Start: 04-18-2024 Influenza vaccination [facility] Start: 01-31-2024 End: 01-31-2024 Comprehensive metabolic 2000 panel - Serum or Plasma Comprehensive Metabolic Panel Lab Routine Acute myeloid leukemia in remission (HCC) Expected: 01/31/2024, Expires: 01/31/2024 [facility] Comment on above: Expected: 01/31/2024, Expires: 4 Start: 01-29-2024 End: 01-29-2024 Patient encounter procedure 01/29/2024 10:45 AM EDT Office Visit [facility] [address] [facility] [address] [place] [address] Pepe Loredo CNP [address] [place] [address] [facility] Start: 04-18-2023 Influenza vaccination Sequential Influenza Vaccine (Season Ended) [facility] Start: 03-25-2023 End: 03-25-2023 Patient encounter procedure 03/25/2023 6:30 AM EDT Appointment [facility] [address] [place] [address] [place] [id number] Erlin Alcaraz MD [address] [place] [id number] [facility] Start: 01-30-2023 End: 01-30-2023 Patient encounter procedure 01/30/2023 Office Visit Oncology ePpe Loredo TUBE ROOM CASHIER [address] [place] [address] [facility] Start: 04-18-2022 Influenza vaccination Sequential Influenza Vaccine (Season Ended) [facility] Start: 02-21-2022 End: 02-21-2022 Telemedicine consultation with patient 02/21/2022 Telemedicine Telephone Oncology Pepe Loredo TUBE ROOM CASHIER [address] [place] [address] [facility] Start: 02-07-2022 End: 01-31-2023 Ultrasonography of abdomen US Abdomen Complete Imaging Routine Thrombocytopenia (HCC) Expected: 02/07/2022, Expires: 01/31/2023 [facility] Work Phone: Comment on above: Expected: 02/07/2022, Expires: Start: 02-02-2022 End: 02-02-2022 Complete blood count with white cell differential, manual CBC and Differential Lab Routine Acute myeloid leukemia in remission (HCC) Expected: 02/02/2022, Expires: 02/02/2022 [facility] Comment on above: Expected: 02/02/2022, Expires: 2 Start: 01-31-2022 End: 01-31-2022 Patient encounter procedure [facility] Start: 07-03-2021 End: 07-03-2022 Complete blood count with white cell differential, manual CBC and Differential Lab Routine Thrombocytopenia (HCC) Expected: 07/03/2021, Expires: 07/03/2022 [facility] Work Phone: Comment on above: Expected: 07/03/2021, Expires: 2 Start: 04-18-2021 Influenza vaccination [facility] Start: 02-01-2021 End: 02-01-2021 Office Visit 02/01/2021 Office Visit Oncology Felipe Jasso Jr., MD [address] [place] [address] [phone] [facility] Start: 08-04-2020 Pneumococcal Vaccine: Age 65+ (2 of 4 - PPSV23) Pneumococcal Vaccine: Age 65+ (2 of 4 - PPSV23) [facility] Start: 04-18-2020 Influenza vaccination given Sequential Influenza Vaccine (#1) [facility] Start: 03-09-2020 End: 03-09-2020 Office Visit 03/09/2020 Office Visit Oncology Felipe Jasso Jr., MD [address] [place] [address] [facility] Start: 02-28-2020 End: 03-10-2020 Complete blood count with white cell differential, manual CBC and Differential Lab Routine Acute myeloid leukemia in remission (HCC) Thrombocytopenia (HCC) Expected: 02/28/2020, Expires: 03/10/2020 [facility] Comment on above: Expected: 02/28/2020, Expires: 0 Start: 04-18-2019 Influenza vaccination given SEQUENTIAL INFLUENZA VACCINE (#1) [facility] Start: 03-11-2019 End: 03-11-2019 Ambulatory 03/11/2019 Office Visit Oncology Felipe Jasso Jr., MD [address] [place] [address] [facility] Start: 04-18-2018 Influenza vaccination SEQUENTIAL INFLUENZA VACCINE (#1) [facility] Start: 09-01-2017 End: 03-05-2017 *Hepatic Function Panel *Hepatic Function Panel [facility] Work Phone: Start: 09-01-2017 End: 03-05-2017 Lipid panel [AGGREGATE] *Lipid Profile CC PCP [facility] Work Phone: Start: 09-01-2017 End: 03-05-2017 Hepatic function 2000 panel - Serum or Plasma *Hepatic Function Panel [facility] Work Phone: Start: 09-01-2017 End: 03-05-2017 Lipid 1996 panel - Serum or Plasma *Lipid Profile CC PCP [facility] Work Phone: Start: 08-29-2017 End: 08-29-2017 Appointment Appointment [facility] Work Phone: Start: 02-28-2017 End: 02-28-2017 Patient encounter procedure Appointment [facility] Work Phone: Start: 02-28-2017 End: 03-05-2017 *Hepatic Function Panel *Hepatic Function Panel [facility] [employer] [facility] Work Phone: Start: 02-28-2017 End: 02-28-2017 Follow Up Appt 6 months Follow Up Appt 6 months [facility] Work Phone: Start: 02-28-2017 End: 03-05-2017 Lipid panel [AGGREGATE] *Lipid Profile CC PCP [facility] Work Phone: Start: 02-28-2017 End: 02-28-2017 MMM MMM [facility] Work Phone: Start: 02-28-2017 End: 02-28-2017 Follow Up Appt 6 months Follow Up Appt 6 months [facility] [employer] [facility] Work Phone: Start: 02-28-2017 End: 03-05-2017 Hepatic function 2000 panel - Serum or Plasma *Hepatic Function Panel [facility] Work Phone: Start: 02-28-2017 End: 03-05-2017 Lipid 1996 panel - Serum or Plasma *Lipid Profile CC PCP [facility] Work Phone: Start: 02-28-2017 End: 02-28-2017 MMM MMM [facility] Work Phone: Start: 12-03-2016 End: 07-07-2017 *Hepatic Function Panel *Hepatic Function Panel [facility] Work Phone: Start: 12-03-2016 End: 07-07-2017 Lipid panel [AGGREGATE] *Lipid Profile CC PCP [facility] Work Phone: Start: 12-03-2016 End: 06-06-2016 Hepatic function 2000 panel - Serum or Plasma *Hepatic Function Panel [facility] Work Phone: Start: 12-03-2016 End: 06-06-2016 Lipid 1996 panel - Serum or Plasma *Lipid Profile CC PCP [facility] Work Phone: Start: 2016 Fall risk assessment Falls Risk Assessment [facility] Start: 2016 Pneumococcal vaccination PNEUMOCOCCAL VACCINE AGE 65+ (1 of 2 - PCV13) [facility] Start: 08-04-2016 Pneumococcal Vaccine: Age 50+ (2 of 2 - PCV) Pneumococcal Vaccine: Age 50+ (2 of 2 - PCV) [facility] Start: 08-04-2016 Pneumococcal Vaccine: Age 65+ (2 - PCV) Pneumococcal Vaccine: Age 65+ (2 - PCV) [facility] Start: 08-04-2016 Pneumococcal Vaccine: Age 65+ (2 of 2 - PCV) Pneumococcal Vaccine: Age 65+ (2 of 2 - PCV) [facility] Start: 06-13-2016 End: 06-13-2016 Follow Up Appt Other Follow Up Appt Other [facility] Work Phone: Start: 06-13-2016 End: 06-13-2016 Follow Up Appt Other Follow Up Appt Other [facility] Work Phone: Start: 03-27-2016 End: 06-04-2016 *Hepatic Function Panel *Hepatic Function Panel [facility] Work Phone: Start: 03-27-2016 End: 06-04-2016 Lipid panel [AGGREGATE] *Lipid Profile CC PCP [facility] Work Phone: Start: 03-27-2016 End: 06-04-2016 Hepatic function 2000 panel - Serum or Plasma *Hepatic Function Panel [facility] Work Phone: Start: 03-27-2016 End: 06-04-2016 Lipid 1996 panel - Serum or Plasma *Lipid Profile CC PCP [facility] Work Phone: Start: 12-12-2015 End: 01-01-2016 *CBC with Differential *CBC with Differential [facility] Work Phone: Start: 12-12-2015 End: 01-01-2016 CBC W Auto Differential panel - Blood *CBC with Differential [facility] Work Phone: Start: 12-11-2015 End: 12-11-2015 Follow Up Appt 6 months Follow Up Appt 6 months [facility] Work Phone: Start: 12-11-2015 End: 12-11-2015 MMM MMM [facility] Work Phone: Start: 12-11-2015 End: 12-11-2015 Follow Up Appt 6 months Follow Up Appt 6 months [facility] Work Phone: Start: 12-11-2015 End: 12-11-2015 MMM MMM [facility] Work Phone: Start: 10-06-2015 End: 05-31-2016 *Hepatic Function Panel *Hepatic Function Panel [facility] Work Phone: Start: 10-06-2015 End: 09-27-2015 Lipid panel [AGGREGATE] *Lipid Profile CC PCP [facility] Work Phone: Start: 10-06-2015 End: 05-31-2016 Hepatic function 2000 panel - Serum or Plasma *Hepatic Function Panel [facility] Work Phone: Start: 10-06-2015 End: 09-27-2015 Lipid 1996 panel - Serum or Plasma *Lipid Profile CC PCP [facility] Work Phone: Start: 08-30-2015 End: 08-30-2015 Ecg routine ecg w/least 12 lds w/i&r EKG (In office) [facility] Work Phone: Start: 08-30-2015 End: 08-30-2015 Follow Up Appt 6 months Follow Up Appt 6 months [facility] Work Phone: Start: 08-30-2015 End: 08-30-2015 PFM PFM [facility] Work Phone: Start: 08-30-2015 End: 08-30-2015 Ecg routine ecg w/least 12 lds w/i&r EKG (In office) [facility] Work Phone: Start: 08-30-2015 End: 08-30-2015 Follow Up Appt 6 months Follow Up Appt 6 months [facility] Work Phone: Start: 08-30-2015 End: 08-30-2015 PFM PFM [facility] Work Phone: Start: 08-04-2015 End: 10-09-2016 *CBC with Differential *CBC with Differential [facility] Work Phone: Start: 08-04-2015 End: 10-09-2016 CBC W Auto Differential panel - Blood *CBC with Differential [facility] Work Phone: Start: 04-21-2015 End: 10-09-2016 *CBC with Differential *CBC with Differential [facility] Work Phone: Start: 04-21-2015 End: 10-09-2016 CBC W Auto Differential panel - Blood *CBC with Differential [facility] Work Phone: Start: 04-04-2015 End: 04-04-2015 *CBC with Differential *CBC with Differential [facility] Work Phone: Start: 04-04-2015 End: 04-04-2015 CBC W Auto Differential panel - Blood *CBC with Differential [facility] Work Phone: Start: 03-14-2015 End: 08-30-2014 *Hepatic Function Panel *Hepatic Function Panel [facility] Work Phone: Start: 03-14-2015 End: 08-30-2014 Lipid panel [AGGREGATE] *Lipid Profile CC PCP [facility] Work Phone: Start: 03-14-2015 End: 08-30-2014 Hepatic function 2000 panel - Serum or Plasma *Hepatic Function Panel [facility] Work Phone: Start: 03-14-2015 End: 08-30-2014 Lipid 1996 panel - Serum or Plasma *Lipid Profile CC PCP [facility] Work Phone: Start: 02-27-2015 End: 02-27-2015 Follow Up Appt 6 months Follow Up Appt 6 months [facility] Work Phone: Start: 02-27-2015 End: 02-27-2015 MMM MMM [facility] Work Phone: Start: 02-27-2015 End: 02-27-2015 Follow Up Appt 6 months Follow Up Appt 6 months [facility] Work Phone: Start: 02-27-2015 End: 02-27-2015 MMM MMM [facility] Work Phone: Start: 01-16-2015 End: 10-09-2016 *CBC with Differential *CBC with Differential [facility] Work Phone: Start: 01-16-2015 End: 10-09-2016 CBC W Auto Differential panel - Blood *CBC with Differential [facility] Work Phone: Start: 08-30-2014 End: 08-30-2014 Follow Up Appt Other Follow Up Appt Other [facility] Work Phone: Start: 08-30-2014 End: 08-30-2014 PFM PFM [facility] Work Phone: Start: 08-30-2014 End: 08-30-2014 Follow Up Appt Other Follow Up Appt Other [facility] Work Phone: Start: 08-30-2014 End: 08-30-2014 PFM PFM [facility] Work Phone: Start: 08-18-2014 End: 08-30-2014 *Hepatic Function Panel *Hepatic Function Panel [facility] Work Phone: Start: 08-18-2014 End: 08-30-2014 Lipid panel [AGGREGATE] *Lipid Profile CC PCP [facility] Work Phone: Start: 08-18-2014 End: 08-30-2014 Hepatic function 2000 panel - Serum or Plasma *Hepatic Function Panel [facility] Work Phone: Start: 08-18-2014 End: 08-30-2014 Lipid 1996 panel - Serum or Plasma *Lipid Profile CC PCP [facility] Work Phone: Start: 03-07-2014 End: 03-08-2014 *BMP *BMP [facility] Work Phone: Start: 03-07-2014 End: 03-08-2014 aPTT *PTT-Partial Thromboplastin Time [facility] Work Phone: Start: 03-07-2014 End: 03-08-2014 CBC W Auto Differential panel - Blood *CBC without Diff [facility] Work Phone: Start: 03-07-2014 End: 08-23-2014 Chest x-ray X-Ray, Chest, PA & Lateral [facility] Work Phone: Start: 03-07-2014 End: 03-08-2014 INR Coag RelTime (PPP) *PT/INR [facility] Work Phone: Start: 03-07-2014 End: 03-08-2014 aPTT in Platelet poor plasma by Coagulation assay *PTT-Partial Thromboplastin Time [facility] Work Phone: Start: 03-07-2014 End: 03-08-2014 Basic metabolic 2000 panel - Serum or Plasma *BMP [facility] Work Phone: Start: 03-07-2014 End: 03-08-2014 CBC W Auto Differential panel - Blood *CBC without Diff [facility] Work Phone: Start: 03-07-2014 End: 08-23-2014 Chest x-ray X-Ray, Chest, PA & Lateral [facility] Work Phone: Start: 03-07-2014 End: 03-08-2014 INR in Platelet poor plasma by Coagulation assay *PT/INR [facility] Work Phone: Start: 03-04-2014 End: 03-16-2014 Left Heart Cath Left Heart Cath [facility] Work Phone: Start: 03-04-2014 End: 03-16-2014 Left Heart Cath Left Heart Cath [facility] Work Phone: Start: 02-28-2014 End: 02-28-2014 Ecg routine ecg w/least 12 lds w/i&r EKG (In office) [facility] Work Phone: Start: 02-28-2014 End: 02-28-2014 Follow Up Appt 6 months Follow Up Appt 6 months [facility] Work Phone: Start: 02-28-2014 End: 02-28-2014 MMM MMM [facility] Work Phone: Start: 02-28-2014 End: 02-28-2014 Nuclear stress test -exercise Nuclear stress test -exercise [facility] Work Phone: Start: 02-28-2014 End: 02-28-2014 Ecg routine ecg w/least 12 lds w/i&r EKG (In office) [facility] Work Phone: Start: 02-28-2014 End: 02-28-2014 Follow Up Appt 6 months Follow Up Appt 6 months [facility] Work Phone: Start: 02-28-2014 End: 02-28-2014 MMM MMM [facility] Work Phone: Start: 02-28-2014 End: 02-28-2014 Nuclear stress test -exercise Nuclear stress test -exercise [facility] Work Phone: Start: 02-15-2014 End: 02-22-2014 *Hepatic Function Panel *Hepatic Function Panel [facility] Work Phone: Start: 02-15-2014 End: 02-22-2014 Lipid panel [AGGREGATE] *Lipid Profile CC PCP [facility] Work Phone: Start: 02-15-2014 End: 02-22-2014 Hepatic function 2000 panel - Serum or Plasma *Hepatic Function Panel [facility] Work Phone: Start: 02-15-2014 End: 02-22-2014 Lipid 1996 panel - Serum or Plasma *Lipid Profile CC PCP [facility] Work Phone: Start: 08-23-2013 End: 02-21-2014 Ecg routine ecg w/least 12 lds w/i&r EKG (In office) [facility] Work Phone: Start: 08-23-2013 End: 08-23-2013 Follow Up Appt 6 months Follow Up Appt 6 months [facility] Work Phone: Start: 08-23-2013 End: 08-23-2013 Follow Up Appt Other Follow Up Appt Other [facility] Work Phone: Start: 08-23-2013 End: 08-23-2013 PFM PFM [facility] Work Phone: Start: 08-23-2013 End: 02-21-2014 Ecg routine ecg w/least 12 lds w/i&r EKG (In office) [facility] Work Phone: Start: 08-23-2013 End: 08-23-2013 Follow Up Appt 6 months Follow Up Appt 6 months [facility] Work Phone: Start: 08-23-2013 End: 08-23-2013 Follow Up Appt Other Follow Up Appt Other [facility] Work Phone: Start: 08-23-2013 End: 08-23-2013 PFM PFM [facility] Work Phone: Start: 12-16-2012 End: 08-23-2013 *Hepatic Function Panel *Hepatic Function Panel [facility] Work Phone: Start: 12-16-2012 End: 08-23-2013 Lipid panel [AGGREGATE] *Lipid Profile [facility] Work Phone: Start: 12-16-2012 End: 08-23-2013 Hepatic function 2000 panel - Serum or Plasma *Hepatic Function Panel [facility] Work Phone: Start: 12-16-2012 End: 08-23-2013 Lipid 1996 panel - Serum or Plasma *Lipid Profile [facility] Work Phone: Start: 05-20-2012 End: 06-30-2012 *Hepatic Function Panel *Hepatic Function Panel [facility] Work Phone: Start: 05-20-2012 End: 06-30-2012 Lipid panel [AGGREGATE] *Lipid Profile [facility] Work Phone: Start: 05-20-2012 End: 06-30-2012 Hepatic function 2000 panel - Serum or Plasma *Hepatic Function Panel [facility] Work Phone: Start: 05-20-2012 End: 06-30-2012 Lipid 1996 panel - Serum or Plasma *Lipid Profile [facility] Work Phone: Start: 03-02-2012 End: 03-02-2012 Follow Up Appt 6 months Follow Up Appt 6 months [facility] Work Phone: Start: 03-02-2012 End: 03-02-2012 Follow Up Appt 6 months Follow Up Appt 6 months [facility] Work Phone: Start: 02-19-2012 End: 08-29-2011 *Hepatic Function Panel *Hepatic Function Panel [facility] Work Phone: Start: 02-19-2012 End: 08-29-2011 Lipid panel [AGGREGATE] *Lipid Profile [facility] Work Phone: Start: 02-19-2012 End: 08-29-2011 Hepatic function 2000 panel - Serum or Plasma *Hepatic Function Panel [facility] Work Phone: Start: 02-19-2012 End: 08-29-2011 Lipid 1996 panel - Serum or Plasma *Lipid Profile [facility] Work Phone: Start: 08-29-2011 End: 08-29-2011 *Hepatic Function Panel *Hepatic Function Panel [facility] Work Phone: Start: 08-29-2011 End: 08-29-2011 Arterial exam Arterial exam [facility] Work Phone: Start: 08-29-2011 End: 08-29-2011 Follow Up Appt 6 months Follow Up Appt 6 months [facility] Work Phone: Start: 08-29-2011 End: 08-29-2011 Lipid panel [AGGREGATE] *Lipid Profile [facility] Work Phone: Start: 08-29-2011 End: 08-29-2011 Arterial exam Arterial exam [facility] Work Phone: Start: 08-29-2011 End: 08-29-2011 Follow Up Appt 6 months Follow Up Appt 6 months [facility] Work Phone: Start: 08-29-2011 End: 08-29-2011 Hepatic function 2000 panel - Serum or Plasma *Hepatic Function Panel [facility] Work Phone: Start: 08-29-2011 End: 08-29-2011 Lipid 1996 panel - Serum or Plasma *Lipid Profile [facility] Work Phone: Start: 2011 Respiratory Syncytial Virus Immunization: Risk, 60-74 Risk, or 75+ (1 - Risk 60-74 years 1-dose series) Respiratory Syncytial Virus Immunization: Risk, 60-74 Risk, or 75+ (1 - Risk 60-74 years 1-dose series) [facility] Start: 2011 Zoster vaccine hzv live for subcutaneous use ZOSTER VACCINE [facility] Start: 2001 Administration of herpes zoster vaccine Zoster Vaccines (1 of 2) [facility] Start: 2001 Screening for malignant neoplasm of colon [facility] Start: 1970 Administration of herpes zoster vaccine Zoster Vaccines (1 of 2) [facility] Start: 1969 Hepatitis C antibody, confirmatory test Hepatitis C Screening [facility] Start: 1969 Hepatitis C screening Hepatitis C Screening [facility] Start: 12-25-1967 COVID-19 Vaccine (1 of 2) COVID-19 Vaccine (1 of 2) [facility] Start: 1963 Adolescent depression screening assessment Depression Screening (PHQ9) [facility] Start: 1963 COVID-19 Vaccine (1) COVID-19 Vaccine (1) [facility] Start: 1963 Depression screening using PHQ-9 (Patient Health Questionnaire 9) score [facility] Start: 1957 Pneumococcal Vaccine: Age 65+ (1 of 4 - PCV13) Pneumococcal Vaccine: Age 65+ (1 of 4 - PCV13) [facility] Start: 1956 COVID-19 Vaccine (#1) COVID-19 Vaccine (#1) [facility] Start: 1954 History and physical examination, annual for health maintenance Wellness Visit [facility] Start: 1954 Medicare Wellness Visit Medicare Wellness Visit [facility] Start: 02-10-1952 COVID-19 Vaccine (#1) COVID-19 Vaccine (#1) [facility] Start: 1951 Fall risk assessment Falls Risk Assessment [facility] Start: 1951 Hepatitis C antibody, confirmatory test HEPATITIS C SCREENING [facility] Start: 1951 HEPATITIS C SCREENING HEPATITIS C SCREENING [facility] Start: 1951 Prostate specific antigen measurement PSA Level [facility] Start: 1951 Screening colonoscopy COLONOSCOPY [facility] Start: 1951 Screening for malignant neoplasm of colon [facility] Start: 1951 Tetanus vaccination [facility] End: 01-31-2026 Basic metabolic 2000 panel - Serum or Plasma Basic Metabolic Panel Lab Routine Acute myeloid leukemia in remission (HCC) 1 Occurrences starting 01/31/2025 until 01/31/2026 [facility] Comment on above: 1 Occurrences starting 01/31/2025 until 01/31/2026 End: 01-30-2024 Complete blood count with white cell differential, manual CBC and Differential Lab Routine Acute myeloid leukemia in remission (HCC) 1 Occurrences starting 01/30/2023 until 01/30/2024 [facility] Work Phone: Comment on above: 1 Occurrences starting 01/30/2023 until 01/30/2024 End: 01-31-2026 Complete blood count with white cell differential, manual CBC and Differential Lab Routine Acute myeloid leukemia in remission (HCC) 1 Occurrences starting 01/31/2025 until 01/31/2026 [facility] Work Phone: Comment on above: 1 Occurrences starting 01/31/2025 until 01/31/2026 End: 04-06-2024 Echocardiography Echocardiogram complete Echocardiography Routine Acute myeloid leukemia in remission (HCC) Fatigue, unspecified type 1 Occurrences starting 02/04/2023 until 04/06/2024 [facility] Work Phone: Comment on above: 1 Occurrences starting 02/04/2023 until 04/06/2024 End: 05-04-2025 Lipid 1996 panel - Serum or Plasma Lipid panel Lab Routine Hyperlipidemia, unspecified hyperlipidemia type 1 Occurrences starting 05/04/2024 until 05/04/2025 [facility] Comment on above: 1 Occurrences starting 05/04/2024 until 05/04/2025 Patient Education [facility] Work Phone: Immunizations Immunization Date Immunization Notes Care Provider [facility] 08-04-2015 varicella zoster immune globulin; Translations: [ZOSTER VACCINE LIVE] Tray Nathan MD [facility] Work Phone: 06-18-[address] Perla Arroyo Work Phone: [facility] 06-18-2015 influenza virus vaccine, unspecified formulation [place] Work Phone: [facility] Payers Date Payer Category Payer Self-pay [id number] 2017 Medicare MEDICARE PFFS ME DICARE HMO/PPO/PFFS MISC* [id number] 2017-Present [id number] 2017 Medicare xxxxxxxxxxx [id number] 2017 Medicare PPO [employer] HMO PPO MEDICARE ADV [id number] 2017 Unknown [id number] 2015 Medicare [id number] 1950 Unknown [id number] 1950 Unknown [id number] 1951 Unknown [id number] 1950 Unknown [id number] 1950 Unknown [id number] 1950 Unknown [id number] 1950 Unknown [id number] Unknown [id number] Unknown [id number] Unknown [id number] Unknown [id number] Social History Date Type Detail Facility Start: 03-12-2018 End: 09-09-2023 Tobacco smoking status NHIS Never smoker [facility] Start: 1950 Sex Assigned At Not on file [facility] Start: 03-09-2020 End: 05-04-2024 Tobacco use and exposure Never used [facility] Start: 03-09-2020 End: 12-08-2024 Alcohol intake Current non-drinker of alcohol (finding) [facility] Start: 01-21-2022 End: 01-31-2022 Exposure to SARS-CoV-2 (event) Not sure [facility] Start: 03-12-2018 End: 02-03-2025 Cigarette pack-years [facility] Start: 02-21-2022 End: 10-28-2022 Tobacco smoking status NHIS Unknown if ever smoked [facility] Start: 12-06-2015 None [facility] Start: 12-06-2015 Non-smoker [facility] Start: 1950 Sex Assigned At Male [facility] Start: 01-30-2023 End: 02-03-2025 Tobacco use panel [facility] Start: 03-09-2020 Gender identity Identifies as male gender (finding) [facility] Start: 03-09-2020 Sexual orientation Heterosexual (finding) [facility] Clinical Notes 02-28-2017 to 02-03-2025 Patient InstructionsPepe Loredo CNP - 02/03/2025 11:00 AM EDTTelephone Encounter - Jose Canseco RN - 12/14/2024 11:34 AM EDTPatient InstructionsPatient Instructions Note Date & Type Note Facility 02-03-2025 Instructions Pepe Loredo CNP - 02/03/2025 11:18 AM EDT Recommend Prevnar 20 pneumonia vaccination Follow up in one year with labs prior to appointment documented in this encounter [facility] 02-03-2025 History of Present illness Narrative Hematology/Oncology Clinic Follow Up Note Patient ID: Jorge Fitch Sr. is a 74 y.o. male. Diagnosis: Acute Myelogenous Leukemia, Hepatitis C positive Date of Diagnosis: 1980 Treatment: Standard induction therapy with daunorubicin and kady-C (Cytarabine) and 2 cycles of maintenance therapy with daunorubicin and kady-C (Cytarabine) PCP: Perla Mosley DO Oncologist: [facility] Hematology/Oncology Interval History: The patient returns in follow up of acute myelogenous leukemia diagnosed in 1980. He denies any hospitalizations since his last office visit or new medications. He takes vitamin supplements, He denies fevers, chills, night sweats, weight loss, or lymphadenopathy. He does complain of increased fatigue. 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 His CBC is unremarkable other than persistent, mild thrombocytopenia most likely secondary to his chemotherapy treatment for AML. His potassium level is elevated at 5.4, he follows with cardiology and this has been noted before. Will reach out to cardiology. He does have questions about appropriate immunizations. I will investigate and send patient written information about the recommendations. History of Present Illness: Mr. Jorge Fitch Sr.is a 74 y.o. male with a past medical history of hypertension, hyperlipidemia, acute myelogenous leukemia diagnosed in 1980. He had standard induction chemotherapy and 2 cycles of maintenance therapy with daunorubicin and kady-C at the [facility]. He has been in remission since that time, but continues to have persistent thrombocytopenia most likely related to treatment of his leukemia. After chemotherapy, the patient had an episode of hepatitis which last several months. We have no previous hepatitis serology on the patient. The following portions of the patient's history were reviewed and updated as appropriate: allergies, current medications, past family history, past social history, past surgical history and problem list. 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 Past Surgical History: Procedure Laterality Date APPENDECTOMY CHOLECYSTECTOMY HEART ABLATION Family History Problem Relation Age of Onset Heart defect Mother broken heart Lupus Mother Diabetes Father Hypertension Father Other (COVID) Sister 2020 Lupus Sister No Known Problems Son No Known Problems Son No Known Problems Son No Known Problems Son No Known Problems Daughter Social History Socioeconomic History Marital status: Single Tobacco Use Smoking status: Never Smokeless tobacco: Never Vaping Use Vaping status: Never Used Substance and Sexual Activity Alcohol use: No Drug use: No Sexual activity: Not Currently Allergies Allergen Reactions Penicillins Rash Atorvastatin Unknown Simvastatin Unknown Current Outpatient Medications on File Prior to Visit Medication Sig Dispense Refill ezetimibe (Zetia) 10 mg tablet Take 1 (one) tablet (10 mg total) by mouth daily . 30 tablet 11 hydroCHLOROthiazide 12.5 MG tablet Take 1 (one) tablet (12.5 mg total) by mouth daily . 30 tablet 11 metoprolol tartrate (LOPRESSOR) 25 MG tablet Take 1 (one) tablet (25 mg total) by mouth 2 (two) times a day . 180 tablet 3 nitroGLYCERIN (NITROSTAT) 0.4 MG SL tablet TAKE 1 TABLET SUBLINGUALLY EVERY 5 TO 15 MINUTES NEEDED FOR CHEST PAIN No current facility-administered medications on file prior to visit. Review of Systems:A complete review of systems was performed and is negative except for what is listed in the HPI. Physical Exam Objective: BP 130/77 (BP Location: Right arm) Pulse 73 Temp 97.8 F (36.6 C) (Oral) Ht 6' (182.9 cm) Wt 85 kg (187 lb 4.8 oz) SpO2 97% BMI 25.40 kg/m General Appearance: Alert, well developed, and in no acute distress. HEENT: Head - Normocephalic, atraumatic. No temporal wasting . Eyes - ARRON bilaterally and EOMI, anicteric sclerae. Ears - normal external appearance, hearing intact. Nose - normal, no erythema. Throat - mucous membranes moist, pharynx without lesions. Neck: Supple, trachea midline. Cardiovascular: S1, S2 normal. No murmurs, rubs, clicks or gallops appreciated. No pedal edema. Respiratory: Lungs clear to auscultation, no wheezes, rales or rhonchi heard. Lymphatics: No palpable peripheral lymphadenopathy of cervical, supraclavicular, axillary or inguinal areas. Abdomen: Soft, non-tender, normal bowel sounds, non-distended, no hepatosplenomegaly Neurological: Grossly normal motor and sensory exam. No focal deficits. Musculoskeletal: No joint tenderness, deformity. Skin: Normal coloration and turgor. No rashes. Psych: Alert, oriented x 3. Normal mood and affect. Labs: Lab Results Component Value Date WBC 5.59 02/02/2025 HGB 14.4 02/02/2025 HCT 41.9 02/02/2025 MCV 93.3 02/02/2025 EXTMCV 94.8 03/12/2018 PLT 106 (L) 02/02/2025 RBC 4.49 (L) 02/02/2025 01/31/2022 hepatitis C antibody positive, hepatitis B negative, Hepatitis A negative, Haptoglobin decreased at 32.4, HIV negative, LDH normal at 180, iron studies normal, B12 344, folate 12.2 Peripheral smear 01/21/22 1. Mild absolute monocytosis. Unremarkable white blood cell morphology 2. Unremarkable red blood cell indices and morphology 3. Thrombocytopenia Assessment and Recommendation Assessment/Plan:The patient returns in follow up of acute myelogenous leukemia diagnosed in 1980. He denies any hospitalizations since his last office visit or new medications. He takes vitamin supplements. His CBC is unremarkable other than persistent, mild thrombocytopenia most likely secondary to his chemotherapy treatment for AML. Acute myeloid leukemia in remission Acute myelogenous leukemia diagnosed in 1980. He had standard induction chemotherapy and 2 cycles of maintenance therapy with daunorubicin and kady-C at the [facility]. He has been in complete remission over 30 years. After chemotherapy, the patient had an episode of hepatitis which last several months. We have no previous hepatitis serology on the patient. Since that time has a moderate thrombocytopenia in the high 100,000's range. He has no clinical bleeding or bruising. -02/02/25 WBC normal at 5.59, hemoglobin normal at 144 hematocrit normal 41.9, MCV normal at 93.3, platelets decreased at 106 white blood cell differential unremarkable. BUN 28, creatinine 1.30, EGFR 59, potassium 5.2, CMP otherwise unremarkable. - Follow up in one year with CBC with SKYLER Robb His CBC is unremarkable other than persistent, mild thrombocytopenia most likely secondary to his chemotherapy treatment for AML. After chemotherapy, the patient had an episode of hepatitis which last several months. We have no previous hepatitis serology on the patient. Since that time has a moderate thrombocytopenia in the high 100's He has no clinical bleeding or bruising . He had an evaluation for thrombocytopenia at [facility] 12/2012.HIV negative, hepatitis B core antibody negative, hepatitis surface antigen negative, hepatitis B surface antibody qualitative negative, hepatitis C antibody 180 positive, HCVRNA by PCR unable to quantity not sufficient.Total protein 6.3, albumin 3.8, calcium 8.8, total bili 1.7, alk phos 79, AST 23. He was referred to infectious disease for Hepatitis treatment. CT abdomen pelvis 02/09/2013 with normal spleen, normal liver, no acute abnormality. - 01/29/22, platelets remain stable at 112. It has been quite some time since the patient has had work up for thrombocytopenia. I have offered him the option of a repeat work up, and he is in agreement. -01/31/2022 hepatitis C antibody positive, hepatitis B negative, Hepatitis A negative, Haptoglobin decreased at 32.4, HIV negative, LDH normal at 180, iron studies normal, B12 344, folate 12.2 Peripheral smear 01/21/22 Mild absolute monocytosis. Unremarkable white blood cell morphology. Unremarkable red blood cell indices and morphology.Thrombocytopenia 02/02/25 WBC 5.59, hemoglobin 14.4, platelets 106, WBC differential normal. Hyperkalemia - chronic per history. Managed by cardiology. 02/02/25 Potassium 5.4. Cardiology notified Hypertension: per history BP: 130/77 Fatigue: He complains of increased fatigue, so much so that he is unable to carry out his normal busy work schedule. He denies any chest pain, shortness of breath. - 01/30/23 given his history of cardiotoxic chemotherapy for treatment of his AML, it would be reasonable to refer to cardio-oncology clinic. Patient is in agreement. -He last saw cardiology 12/08/24, he is to return in 6 months. RTC in 1 year Education Provided Education/Instructions given to: (x) Patient (_) Spouse (_) Parent (_) Other Barriers to Learning: (x) None (_) Yes (identify):_ Content: (x) Refer to note above (_)Other (identify):_ Evaluation/Outcome: (x) Verbalized understanding (_) Demonstrated understanding (_) Other:_ Symptom Management: 1. Pain Assessment/Effectiveness of Narcotics: N/A 2. Narcotic induced Constipation: N/A 3. Emotional Well Being Assessment: Stable, no signs or symtoms of depression 4. Chemotherapy Side effects: denies NAY Robb NCCN Guidelines for Surveillance after induction therapy CBC every 1-3 months for 2 years CBC every 3-6 months for 5 years CBC annually after 5 years documented in this encounter [facility] 02-03-2025 Note Hematology/Oncology Clinic Follow Up Note Patient ID: Jorge Fitch Sr. is a 74 y.o. male. Diagnosis: Acute Myelogenous Leukemia, Hepatitis C positive Date of Diagnosis: 1980 Treatment: Standard induction therapy with daunorubicin and kady-C (Cytarabine) and 2 cycles of maintenance therapy with daunorubicin and kady-C (Cytarabine) PCP: Perla Mosley DO Oncologist: [facility] Hematology/Oncology Interval History: The patient returns in follow up of acute myelogenous leukemia diagnosed in 1980. He denies any hospitalizations since his last office visit or new medications. He takes vitamin supplements, He denies fevers, chills, night sweats, weight loss, or lymphadenopathy. He does complain of increased fatigue. 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 His CBC is unremarkable other than persistent, mild thrombocytopenia most likely secondary to his chemotherapy treatment for AML. His potassium level is elevated at 5.4, he follows with cardiology and this has been noted before. Will reach out to cardiology. He does have questions about appropriate immunizations. I will investigate and send patient written information about the recommendations. History of Present Illness: Mr. Jorge Fitch Sr.is a 74 y.o. male with a past medical history of hypertension, hyperlipidemia, acute myelogenous leukemia diagnosed in 1980. He had standard induction chemotherapy and 2 cycles of maintenance therapy with daunorubicin and kady-C at the [facility]. He has been in remission since that time, but continues to have persistent thrombocytopenia most likely related to treatment of his leukemia. After chemotherapy, the patient had an episode of hepatitis which last several months. We have no previous hepatitis serology on the patient. The following portions of the patient's history were reviewed and updated as appropriate: allergies, current medications, past family history, past social history, past surgical history and problem list. 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 Past Surgical History: Procedure Laterality Date APPENDECTOMY CHOLECYSTECTOMY HEART ABLATION Family History Problem Relation Age of Onset Heart defect Mother broken heart Lupus Mother Diabetes Father Hypertension Father Other (COVID) Sister 2020 Lupus Sister No Known Problems Son No Known Problems Son No Known Problems Son No Known Problems Son No Known Problems Daughter Social History Socioeconomic History Marital status: Single Tobacco Use Smoking status: Never Smokeless tobacco: Never Vaping Use Vaping status: Never Used Substance and Sexual Activity Alcohol use: No Drug use: No Sexual activity: Not Currently Allergies Allergen Reactions Penicillins Rash Atorvastatin Unknown Simvastatin Unknown Current Outpatient Medications on File Prior to Visit Medication Sig Dispense Refill ezetimibe (Zetia) 10 mg tablet Take 1 (one) tablet (10 mg total) by mouth daily . 30 tablet 11 hydroCHLOROthiazide 12.5 MG tablet Take 1 (one) tablet (12.5 mg total) by mouth daily . 30 tablet 11 metoprolol tartrate (LOPRESSOR) 25 MG tablet Take 1 (one) tablet (25 mg total) by mouth 2 (two) times a day . 180 tablet 3 nitroGLYCERIN (NITROSTAT) 0.4 MG SL tablet TAKE 1 TABLET SUBLINGUALLY EVERY 5 TO 15 MINUTES NEEDED FOR CHEST PAIN No current facility-administered medications on file prior to visit. Review of Systems:A complete review of systems was performed and is negative except for what is listed in the HPI. Physical Exam Objective: BP 130/77 (BP Location: Right arm) Pulse 73 Temp 97.8 degrees F (36.6 degrees C) (Oral) Ht 6' (182.9 cm) Wt 85 kg (187 lb 4.8 oz) SpO2 97% BMI 25.40 kg/m General Appearance: Alert, well developed, and in no acute distress. HEENT: Head - Normocephalic, atraumatic. No temporal wasting . Eyes - ARRON bilaterally and EOMI, anicteric sclerae. Ears - normal external appearance, hearing intact. Nose - normal, no erythema. Throat - mucous membranes moist, pharynx without lesions. Neck: Supple, trachea midline. Cardiovascular: S1, S2 normal. No murmurs, rubs, clicks or gallops appreciated. No pedal edema. Respiratory: Lungs clear to auscultation, no wheezes, rales or rhonchi heard. Lymphatics: No palpable peripheral lymphadenopathy of cervical, supraclavicular, axillary or inguinal areas. Abdomen: Soft, non-tender, normal bowel sounds, non-distended, no hepatosplenomegaly Neurological: Grossly normal motor and sensory exam. No focal deficits. Musculoskeletal: No joint tenderness, deformity. Skin: Normal coloration and turgor. No rashes. Psych: Alert, oriented x 3. Normal mood and affect. Labs: Lab Results Component Value Date (more content not included)... [facility] 12-14-2024 Telephone encounter Note LMOM with lab results and Dr. Alcaraz's recommendations. BMP ordered for x2 weeks. Advised to return call with any questions. [facility] 12-14-2024 Miscellaneous Notes LMOM with lab results and Dr. Alcaraz's recommendations. BMP ordered for x2 weeks. Advised to return call with any questions. ----- Message from Zion Alcaraz sent at 12/10/2024 2:46 PM EDT ----- Potassium is on the higher side of normal, avoid potassium rich foods, repeat blood chemistry in 1 to 2 weeks ----- Message ----- From: Interface, Lab Results In [place] Sent: 12/07/2024 3:29 AM EDT To: Erlin Alcaraz MD documented in this encounter [facility] 12-14-2024 Telephone encounter Note ----- Message from Zion Alcaraz sent at 12/10/2024 2:46 PM EDT ----- Potassium is on the higher side of normal, avoid potassium rich foods, repeat blood chemistry in 1 to 2 weeks ----- Message ----- From: Interface, Lab Results In [place] Sent: 12/07/2024 3:29 AM EDT To: Erlin Alcaraz MD [facility] 12-08-2024 Instructions Tommy Avery RN - 12/08/2024 10:40 AM EDT How to contact your Care Team: Provider: Erlin Alcaraz MD ____ Nurse: Jose Canseco RN In case of an emergency please call 911. REFILLS: When in need for refills please call your care team or the office at [phone]. Please include medication name, pharmacy name, and specify 30-day or 90-day supply. Please check with your pharmacy within 24 hours of request for your refill. You must follow up as directed to continue current refills. Thank you documented in this encounter [facility] 12-08-2024 Instructions Tommy Avery RN - 12/08/2024 10:40 AM EDT How to contact your Care Team: Provider: Erlin Alcaraz MD ____ Nurse: Jose Canseco RN In case of an emergency please call 911. REFILLS: When in need for refills please call your care team or the office at [phone]. Please include medication name, pharmacy name, and specify 30-day or 90-day supply. Please check with your pharmacy within 24 hours of request for your refill. You must follow up as directed to continue current refills. Thank you documented in this encounter [facility] 12-08-2024 History of Present illness Narrative General Cardiology Returning Patient Clinic Visit [facility] 12/08/2024 Morenita Zheng, TUBE ROOM CASHIER [address], 3rd Floor Medical Office Building [facility] [id number] Patient: Jorge Fitch Sr. Date of : 1950 (74 y.o.) Healthcare Manager: Dr. Alcaraz PCP: Perla Arroyo DO Chief Complaint: 6-month follow-up Date of Service: 12/08/2024 Assessment and Plan: Paroxysmal atrial fibrillation-the patient underwent to atrial fibrillation ablations with the last being in [address] Siddiqui. Patient was taken off of anticoagulation given no recurrence of A-fib and given his prior history of AML and thrombocytopenia. Patient was very symptomatic prior to his atrial fibrillation ablations. He has not had the same symptoms since then. Continue metoprolol. Hyperlipidemia-statin intolerance. Continue Zetia started in May by Dr. Alcaraz. Hypertension-blood pressure at the office today 132/72 Intermittently elevated at home Continue hydrochlorothiazide Continue metoprolol tartrate 25 mg twice daily It has been a pleasure caring for this patient. Please don't hesitate to reach out to my office directly with any questions or concerns. Follow-up: Return in about 6 months (around 06/09/2025). Morenita Zheng, MSN, COMPUTER TECHNOLOGY TEACHER, WAX BALL KNOCK OUT WORKER-C, WINDOW TRIMMER APPRENTICE, ECG- General Cardiology [facility] History of Present Illness: Jorge Fitch is a 74 y.o. man with a past medical history of AML status post standard induction chemotherapy and 2 cycles of maintenance therapy with daunorubicin and Kady-C at the [facility] in 1980, atrial fibrillation status post ablation, hypertension, hyperlipidemia, thrombocytopenia and hepatitis C who presents to clinic for follow-up. He was last seen in our clinic by his primary info print press operator Dr. Alcaraz on 05/04/2024. At his last office visit he was doing well from a cardiovascular standpoint. Patient presents to the clinic today unaccompanied. 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 He denies lower extremity edema, orthopnea or PND. He denies signs of bleeding. He denies fatigue. He denies palpitations, presyncope or syncope. Blood pressures are intermittently elevated at home. Objective Review of Systems: All systems were reviewed and noted to be negative unless otherwise stated in HPI. 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 Home Medications: Current Medications[2] Physical Exam: BP 132/72 (BP Location: Right arm, Patient Position: Sitting) Pulse 67 Ht 6' Wt 86.3 kg (190 lb 3.2 oz) SpO2 97% BMI 25.80 kg/m Constitutional: Well appearing occasion male, no acute distress Head: Normocephalic and atraumatic. Eyes: Conjunctivae are normal, no scleral icterus, no corneal arcus Cardiovascular: Regular rate and rhythm, no murmurs appreciated on today's exam, normal S1 and S2, no rubs or gallops, PMI is midline. No JVD noted. No peripheral edema. Lungs: Clear to auscultation, no rales, wheezes or rhonchi Pulses: +2 dorsalis pedis pulses bilaterally Musculoskeletal: Normal range of motion. Neurological: AOx3, moving all extremities normally Skin: Skin is warm and dry, normal hair pattern Psychiatric: Normal mood and affect, appropriate conversation Cardiovascular Studies: 02/06/16 TTE Conclusions: There is normal left ventricular systolic function. The ejection fraction is calculated to be 59% using the Method of Disks. ave. GL Strain -17% as a baseline ECG - sinus rhythm - normal ECG 02/04/23 Labs: Lab Results Component Value Date GLUCOSE 89 01/29/2024 CALCIUM 9.0 01/29/2024 NA 139 01/29/2024 K 4.8 01/29/2024 CL 103 01/29/2024 BUN 21 01/29/2024 CREATININE 1.25 12/06/2024 Lab Results Component Value Date WBC 5.94 01/29/2024 HGB 14.4 01/29/2024 HCT 41.6 01/29/2024 MCV 93.7 01/29/2024 EXTMCV 94.8 03/12/2018 PLT 106 (L) 01/29/2024 RBC 4.44 (L) 01/29/2024 Lab Results Component Value Date CHOL 176 02/04/2023 LDLCALC 101 02/04/2023 TRIG 129 02/04/2023 HDL 49 02/04/2023 No results found for: HGBA1C Lab Results Component Value Date ALT 11 01/29/2024 AST 23 01/29/2024 ALKPHOS 74 01/29/2024 BILITOT 1.2 01/29/2024 The 10-year ASCVD risk score (Glenn HAYNES, et al., 2019) is: 22.3% Values used to calculate the score: Age: 74 years Sex: Male Is Non- : No Diabetic: No Tobacco smoker: No Systolic Blood Pressure: 132 mmHg Is BP treated: Yes HDL Cholesterol: 57 mg/dL Total Cholesterol: 143 mg/dL [1] Social History Tobacco Use Smoking Status Never Smokeless Tobacco Never [2] Current Outpatient Medications: ezetimibe (Zetia) 10 mg tablet, Take 1 (one) tablet (10 mg total) by mouth daily ., Disp: 30 tablet, Rfl: 11 hydroCHLOROthiazide 12.5 MG tablet, Take 1 (one) tablet (12.5 mg total) by mouth daily . (Patient taking differently: Take 1 (one) tablet (12.5 mg total) by mouth daily Pt takes every other day .), Disp: 30 tablet, Rfl: 11 metoprolol tartrate (LOPRESSOR) 25 MG tablet, Take 1 (one) tablet (25 mg total) by mouth 2 (two) times a day ., Disp: 180 tablet, Rfl: 3 nitroGLYCERIN (NITROSTAT) 0.4 MG SL tablet, TAKE 1 TABLET SUBLINGUALLY EVERY 5 TO 15 MINUTES NEEDED FOR CHEST PAIN, Disp: , Rfl: documented in this encounter [facility] 12-08-2024 History of Present illness Narrative General Cardiology Returning Patient Clinic Visit [facility] 12/08/2024 Moreinta Zheng CNP [address] [place] [address], 3rd Floor Medical Office [facility] [id number] Patient: Jorge Fitch Sr. Date of : 1950 (74 y.o.) Healthcare Manager: Dr. Alcaarz PCP: Perla Arroyo DO Chief Complaint: 6-month follow-up Date of Service: 12/08/2024 Assessment and Plan: Paroxysmal atrial fibrillation-the patient underwent two atrial fibrillation ablations with the last being [place] [address] Siddiqui. Patient was taken off of anticoagulation given no recurrence of A-fib and given his prior history of AML and thrombocytopenia. Patient was very symptomatic prior to his atrial fibrillation ablations. He has not had the same symptoms since then. Continue metoprolol. Hyperlipidemia-statin intolerance. Continue Zetia started in May by Dr. Alcaraz. Hypertension-blood pressure at the office today 132/72 Intermittently elevated at home Continue hydrochlorothiazide Continue metoprolol tartrate 25 mg twice daily It has been a pleasure caring for this patient. Please don't hesitate to reach out to my office directly with any questions or concerns. Follow-up: Return in about 6 months (around 06/09/2025). Morenita Zheng, MSN, COMPUTER TECHNOLOGY TEACHER, WAX BALL KNOCK OUT WORKER-C, WINDOW TRIMMER APPRENTICE, ECG-BC General Cardiology [facility] History of Present Illness: Jorge Fitch is a 74 y.o. man with a past medical history of AML status post standard induction chemotherapy and 2 cycles of maintenance therapy with daunorubicin and Kady-C at the [facility] in 1980, atrial fibrillation status post ablation, hypertension, hyperlipidemia, thrombocytopenia and hepatitis C who presents to clinic for follow-up. He was last seen in our clinic by his primary info print press operator Dr. Alcaraz on 05/04/2024. At his last office visit he was doing well from a cardiovascular standpoint. Patient presents to the clinic today unaccompanied. 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 He denies lower extremity edema, orthopnea or PND. He denies signs of bleeding. He denies fatigue. He denies palpitations, presyncope or syncope. Blood pressures are intermittently elevated at home. Objective Review of Systems: All systems were reviewed and noted to be negative unless otherwise stated in HPI. 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 Home Medications: Current Medications[2] Physical Exam: BP 132/72 (BP Location: Right arm, Patient Position: Sitting) Pulse 67 Ht 6' Wt 86.3 kg (190 lb 3.2 oz) SpO2 97% BMI 25.80 kg/m Constitutional: Well appearing occasion male, no acute distress Head: Normocephalic and atraumatic. Eyes: Conjunctivae are normal, no scleral icterus, no corneal arcus Cardiovascular: Regular rate and rhythm, no murmurs appreciated on today's exam, normal S1 and S2, no rubs or gallops, PMI is midline. No JVD noted. No peripheral edema. Lungs: Clear to auscultation, no rales, wheezes or rhonchi Pulses: +2 dorsalis pedis pulses bilaterally Musculoskeletal: Normal range of motion. Neurological: AOx3, moving all extremities normally Skin: Skin is warm and dry, normal hair pattern Psychiatric: Normal mood and affect, appropriate conversation Cardiovascular Studies: 02/06/16 TTE Conclusions: There is normal left ventricular systolic function. The ejection fraction is calculated to be 59% using the Method of Disks. ave. GL Strain -17% as a baseline ECG - sinus rhythm - normal ECG 02/04/23 Labs: Lab Results Component Value Date GLUCOSE 89 01/29/2024 CALCIUM 9.0 01/29/2024 NA 139 01/29/2024 K 4.8 01/29/2024 CL 103 01/29/2024 BUN 21 01/29/2024 CREATININE 1.25 12/06/2024 Lab Results Component Value Date WBC 5.94 01/29/2024 HGB 14.4 01/29/2024 HCT 41.6 01/29/2024 MCV 93.7 01/29/2024 EXTMCV 94.8 03/12/2018 PLT 106 (L) 01/29/2024 RBC 4.44 (L) 01/29/2024 Lab Results Component Value Date CHOL 176 02/04/2023 LDLCALC 101 02/04/2023 TRIG 129 02/04/2023 HDL 49 02/04/2023 No results found for: HGBA1C Lab Results Component Value Date ALT 11 01/29/2024 AST 23 01/29/2024 ALKPHOS 74 01/29/2024 BILITOT 1.2 01/29/2024 The 10-year ASCVD risk score (Glenn DK, et al., 2019) is: 22.3% Values used to calculate the score: Age: 74 years Sex: Male Is Non- : No Diabetic: No Tobacco smoker: No Systolic Blood Pressure: 132 mmHg Is BP treated: Yes HDL Cholesterol: 57 mg/dL Total Cholesterol: 143 mg/dL [1] Social History Tobacco Use Smoking Status Never Smokeless Tobacco Never [2] Current Outpatient Medications: ezetimibe (Zetia) 10 mg tablet, Take 1 (one) tablet (10 mg total) by mouth daily ., Disp: 30 tablet, Rfl: 11 hydroCHLOROthiazide 12.5 MG tablet, Take 1 (one) tablet (12.5 mg total) by mouth daily . (Patient taking differently: Take 1 (one) tablet (12.5 mg total) by mouth daily Pt takes every other day .), Disp: 30 tablet, Rfl: 11 metoprolol tartrate (LOPRESSOR) 25 MG tablet, Take 1 (one) tablet (25 mg total) by mouth 2 (two) times a day ., Disp: 180 tablet, Rfl: 3 nitroGLYCERIN (NITROSTAT) 0.4 MG SL tablet, TAKE 1 TABLET SUBLINGUALLY EVERY 5 TO 15 MINUTES NEEDED FOR CHEST PAIN, Disp: , Rfl: documented in this encounter [facility] 12-08-2024 Note General Cardiology R eturning Patient Clinic Visit [facility] 12/08/2024 Morenita Zheng CNP [address] [place] [address] 3rd Floor Medical Office [facility] [id number] Patient: Jorge Fitch Sr. Date of : 1950 (74 y.o.) Healthcare Manager: Dr. Alcaraz PCP: Perla Arroyo DO Chief Complaint: 6-month follow-up Date of Service: 12/08/2024 Assessment and Plan: Paroxysmal atrial fibrillation-the patient underwent two atrial fibrillation ablations with the last being [place] [address] Siddiqui. Patient was taken off of anticoagulation given no recurrence of A-fib and given his prior history of AML and thrombocytopenia. Patient was very symptomatic prior to his atrial fibrillation ablations. He has not had the same symptoms since then. Continue metoprolol. Hyperlipidemia-statin intolerance. Continue Zetia started in May by Dr. Alcaraz. Hypertension-blood pressure at the office today 132/72 Intermittently elevated at home Continue hydrochlorothiazide Continue metoprolol tartrate 25 mg twice daily It has been a pleasure caring for this patient. Please don't hesitate to reach out to my office directly with any questions or concerns. Follow-up: Return in about 6 months (around 06/09/2025). Morenita Zheng, MSN, COMPUTER TECHNOLOGY TEACHER, WAX BALL KNOCK OUT WORKER-C, WINDOW TRIMMER APPRENTICE, ECG- General Cardiology [facility] ---- History of Present Illness: Jorge Fitch is a 74 y.o. man with a past medical history of AML status post standard induction chemotherapy and 2 cycles of maintenance therapy with daunorubicin and Kady-C at the [facility] in 1980, atrial fibrillation status post ablation, hypertension, hyperlipidemia, thrombocytopenia and hepatitis C who presents to clinic for follow-up. He was last seen in our clinic by his primary info print press operator Dr. Alcaraz on 05/04/2024. At his last office visit he was doing well from a cardiovascular standpoint. Patient presents to the clinic today unaccompanied. 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 He denies lower extremity edema, orthopnea or PND. He denies signs of bleeding. He denies fatigue. He denies palpitations, presyncope or syncope. Blood pressures are intermittently elevated at home. Objective Review of Systems: All systems were reviewed and noted to be negative unless otherwise stated in HPI. 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 Home Medications: Current Medications[2] Physical Exam: BP 132/72 (BP Location: Right arm, Patient Position: Sitting) Pulse 67 Ht 6' Wt 86.3 kg (190 lb 3.2 oz) SpO2 97% BMI 25.80 kg/m Constitutional: Well appearing occasion male, no acute distress Head: Normocephalic and atraumatic. Eyes: Conjunctivae are normal, no scleral icterus, no corneal arcus Cardiovascular: Regular rate and rhythm, no murmurs appreciated on today's exam, normal S1 and S2, no rubs or gallops, PMI is midline. No JVD noted. No peripheral edema. Lungs: Clear to auscultation, no rales, wheezes or rhonchi Pulses: +2 dorsalis pedis pulses bilaterally Musculoskeletal: Normal range of motion. Neurological: AOx3, moving all extremities normally Skin: Skin is warm and dry, normal hair pattern Psychiatric: Normal mood and affect, appropriate conversation Cardiovascular Studies: 02/06/16 TTE Conclusions: There is normal left ventricular systolic function. The ejection fraction is calculated to be 59% using the Method of Disks. ave. GL Strain -17% as a baseline ECG - sinus rhythm - normal ECG 02/04/23 Labs: Lab Results Component Value Date GLUCOSE 89 01/29/2024 CALCIUM 9.0 01/29/2024 NA 139 01/29/2024 K 4.8 01/29/2024 CL 103 01/29/2024 BUN 21 01/29/2024 CREATININE 1.25 12/06/2024 Lab Results Component Value Date WBC 5.94 01/29/2024 HGB 14.4 01/29/2024 HCT 41.6 01/29/2024 MCV 93.7 01/29/2024 EXTMCV 94.8 03/12/2018 PLT 106 (L) 01/29/2024 RBC 4.44 (L) (more content not included)... [facility] 11-11-2024 Evaluation note Diagnosis Onset Date Resolution Essential hypertension chronic Ma rch 2024 9:18am History of radiofrequency ablation (RFA) procedure for cardiac arrhythmia chronic November 11, 2 025 9:18am Mixed hyperlipidemia chronic Bal h 2024 9:18am Paroxysmal atrial fibrillation chronic November 11, 2024 9:18am Stented coronary artery 2009 chronic M arch 2024 9:18am Essential hypertension chronic Ju 2024 9:18am History of radiofrequency ablation (RFA) procedure for cardiac arrhythmia chronic February 22 9:18am Mixed hyperlipidemia chronic February 22, 2025 9:18am Paroxysmal atrial fibrillation chronic February 22, 2025 9:18am Stented coronary artery 2008 chronic J vale 2024 9:18am [facility] Work Phone: [phone]) 548-844010-09-2024 NotePatient's creatinine is elevated from baseline - likely from the addition of hydrochlorothiazide. I discussed with him about stopping hydrochlorothiazide and starting something else for his BP however patient reports that he is feeling much better since starting hydrochlorothiazide and his LE swelling is better. He feels like his old self. BP has also improved. Patient is hesitant to stop hydrochlorothiazide, will reduce hydrochlorothiazide to every other day. I have asked him to repeat his blood chemistry in 1 to 2 weeks. Patient will call the clinic with his blood pressure logs as well. The 10-year ASCVD risk score (Medway DK, et al., 2019) is: 32.8%. We discussed starting atorvastatin which he was agreeable to. AUTHENTICATED BY ERLIN ALCARAZ, ON 05/26/2024 16:22:14[facility] 05-04-2024 NoteCardiology Clinic Visit [facility] 05/04/2024 Erlin Alcaraz MD [address], 3rd Floor Medical Office [facility] [id number] Patient: Jorge Fitch Sr. Date of : 1950 (73 y.o.) Referring Provider: No ref. provider found PCP: Perla Arroyo, DO Assessment & Plan Jorge Fitch is a 73 y.o. man with history of AML status post standard induction chemotherapy and 2 cycles of maintenance therapy with daunorubicin and Kady-C at the [facility] in 1980, hypertension, hyperlipidemia, thrombocytopenia and hepatitis C who presents to clinic for follow-up Paroxysmal atrial fibrillation-the patient underwent to atrial fibrillation ablations with the last being in [address] Siddiqui. Patient was taken off of anticoagulation given no recurrence of A-fib and given his prior history of AML and thrombocytopenia. Patient was very symptomatic prior to his atrial fibrillation ablations. He has not had the same symptoms since then. Continue metoprolol at current dose. Hepatitis C antibody positive-referral to infectious disease made at the last visit however this was denied by his insurance. Will have him speak with his primary care. Hyperlipidemia-repeat lipid panel ordered. Further management pending repeat lipid panel. HTN - Patient reports blood pressures have been elevated at home. Will start hydrochlorothiazide 12.5 daily. Patient call the clinic in 2 weeks with his blood pressure log. Titrate medications as needed. Return in about 6 months (around 11/01/2024). Erlin Alcaraz MD [facility] Non-Invasive Cardiology [facility] Chief Complaint: Follow-up (Pt states no concerns today) Subjective Jorge Fitch is a 73 y.o. man with history of AML status post standard induction chemotherapy and 2 cycles of maintenance therapy with daunorubicin and Kady-C at the [facility] in 1980, hypertension, hyperlipidemia, thrombocytopenia and hepatitis C who presents to clinic for follow-up At the last visit the patient reported fatigue. Patient reports that his fatigue has resolved. He denies any episodes of chest pain. He denies feeling short of breath. He denies lower extremity swelling, PND and orthopnea. He denies palpitations. He denies lightheadedness dizziness. He denies any episodes syncope. He reports that overall he has been feeling really well. He however has had issues with his blood pressure. Echocardiogram and referral to ID was denied by his insurance. Review of Systems: Constitution: Negative. HENT: Negative. Cardiovascular: As above. Respiratory: As above. Endocrine: Negative. Skin: Negative. Musculoskeletal: Negative. Gastrointestinal: Negative. Genitourinary: Negative. Neurological: Negative. Psychiatric/Behavioral: Negative. 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 Past Surgical History: Procedure Laterality Date APPENDECTOMY CHOLECYSTECTOMY HEART ABLATION Family History Problem Relation Age of Onset Heart defect Mother broken heart Lupus Mother Diabetes Father Hypertension Father Other (COVID) Sister 2020 Lupus Sister No Known Problems Son No Known Problems Son No Known Problems Son No Known Problems Son No Known Problems Daughter Social History Tobacco Use Smoking Status Never Smokeless Tobacco Never Allergies: Penicillins, Atorvastatin, and Simvastatin HOME Medications: Current Outpatient Medications on File Prior to Visit Medication Sig metoprolol tartrate (LOPRESSOR) 25 MG tablet Take 1 (one) tablet (25 mg total) by mouth once daily . nitroGLYCERIN (NITROSTAT) 0.4 MG SL tablet TAKE 1 TABLET SUBLINGUALLY EVERY 5 TO 15 MINUTES NEEDED FOR CHEST PAIN No current facility-administered medications on file prior to visit. Physical Examination: BP (!) 161/90 (BP Location: Left arm, Patient Position: Sitting) Pulse 69 Ht 6' Wt 88.3 kg (194 lb 9.6 oz) SpO2 97% BMI 26.39 kg/m Constitutional: Appears well-developed and well-nourished. No distress. HENT: Head: Normocephalic and atraumatic. Eyes: Conjunctivae and EOM are normal. No scleral icterus. Neck: Normal range of motion. Cardiovascular: Normal rate and regular rhythm. Exam reveals no gallop and no friction rub. No murmur heard. No JVP elevation. No LE edema. Pulmonary/Chest: Effort normal and breath sounds normal. No respiratory distress. No wheezes. No rales. Abdominal: Soft. Bowel sounds are normal. There is no abdominal tenderness. Musculoskeletal: Normal range of motion. Neurological: AOx3, moving all ext. Skin: Skin is warm and dry. No rash noted. Psychiatric: Normal mood and affect. Cardiovascular Studies: 02/06/16 T (more content not included)...[facility] [id number] History of Present illness Narrative* Erlin Alcaraz MD - 05/04/2024 8:26 AM EDT Cardiology Clinic Visit [facility] 05/04/2024 Erlin Alcaraz MD [address] [place] [address], 3rd Floor Medical Office [facility] [id number] Patient: Jorge Fitch Sr. Date of : 1950 (73 y.o.) Referring Provider: No ref. provider found PCP: Perla Arroyo, DO Assessment & Plan Jorge Fitch is a 73 y.o. man with history of AML status post standard induction chemotherapy and 2 cycles of maintenance therapy with daunorubicin and Kady-C at the [facility] in 1980, hypertension, hyperlipidemia, thrombocytopenia and hepatitis C who presents to clinic for follow-up Paroxysmal atrial fibrillation-the patient underwent to atrial fibrillation ablations with the lastbeing in [address] Siddiqui. Patient was taken off of anticoagulation given no recurrence ofA-fib and given his prior history of AML and thrombocytopenia. Patient was very symptomatic prior to his atrial fibrillation ablations. He has not had the same symptoms since then. Continue metoprolol at current dose. Hepatitis C antibody positive-referral to infectious disease made at the last visit however this was denied by his insurance. Will have him speak with his primary care. Hyperlipidemia-repeat lipid panel ordered. Further management pending repeat lipid panel. HTN - Patient reports blood pressures have been elevated at home. Will start hydrochlorothiazide 12.5 daily. Patient call the clinic in 2 weeks with his blood pressure log. Titrate medications as needed. Return in about 6 months (around 11/01/2024). Erlin Alcaraz MD [facility] Non-Invasive Cardiology [facility] Chief Complaint: Follow-up (Pt states no concerns today) Subjective Jorge Fitch is a 73 y.o. man with history of AML status post standard induction chemotherapy and 2 cycles of maintenance therapy with daunorubicin and Kady-C at the [facility] in 1980, hypertension, hyperlipidemia, thrombocytopenia and hepatitis C who presents to clinic for follow-up At the last visit the patient reported fatigue. Patient reports that his fatigue has resolved. He denies any episodes of chest pain. He denies feeling short of breath. He denies lower extremity swelling, PND and orthopnea. He denies palpitations. He denies lightheadedness dizziness. He denies any episodes syncope. He reports that overall he has been feeling really well. He however has had issues with his blood pressure. Echocardiogram and referral to ID was denied by his insurance. Review of Systems: Constitution: Negative. HENT: Negative. Cardiovascular: As above. Respiratory: As above. Endocrine: Negative. Skin: Negative. Musculoskeletal: Negative. Gastrointestinal: Negative. Genitourinary: Negative. Neurological: Negative. Psychiatric/Behavioral: Negative. 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 Past Surgical History: Procedure Laterality Date APPENDECTOMY CHOLECYSTECTOMY HEART ABLATION Family History Problem Relation Age of Onset Heart defect Mother broken heart Lupus Mother Diabetes Father Hypertension Father Other (COVID) Sister 2020 Lupus Sister No Known Problems Son No Known Problems Son No Known Problems Son No Known Problems Son No Known Problems Daughter Social History Tobacco Use Smoking Status Never Smokeless Tobacco Never Allergies: Penicillins, Atorvastatin, and Simvastatin HOME Medications: Current Outpatient Medications on File Prior to Visit Medication Sig metoprolol tartrate (LOPRESSOR) 25 MG tablet Take 1 (one) tablet (25 mg total) by mouth once daily . nitroGLYCERIN (NITROSTAT) 0.4 MG SL tablet TAKE 1 TABLET SUBLINGUALLY EVERY 5 TO 15 MINUTES NEEDED FOR CHEST PAIN No current facility-administered medications on file prior to visit. Physical Examination: BP (!) 161/90 (BP Location: Left arm, Patient Position: Sitting) Pulse 69 Ht 6' Wt 88.3 kg (194 lb 9.6 oz) SpO2 97% BMI 26.39 kg/m Constitutional: Appears well-developed and well-nourished. No distress. HENT: Head: Normocephalic and atraumatic. Eyes: Conjunctivae and EOM are normal. No scleral icterus. Neck: Normal range of motion. Cardiovascular: Normal rate and regular rhythm. Exam reveals no gallop and no friction rub. No murmur heard. No JVP elevation. No LE edema. Pulmonary/Chest: Effort normal and breath sounds normal. No respiratory distress. No wheezes. No rales. Abdominal: Soft. Bowel sounds are normal. There is no abdominal tenderness. Musculoskeletal: Normal range of motion. Neurological: AOx3, moving all ext. Skin: Skin is warm and dry. No rash noted. Psychiatric: Normal mood and affect. Cardiovascular Studies: 6/21/16 TTE Conclusions: There is normal left ventricular systolic function. The ejection fraction is calculated to be 59% using the Method of Disks. ave. GL Strain -17% as a baseline ECG - sinus rhythm - normal ECG 02/04/23 Labs: Lab Results Component Value Date GLUCOSE 89 01/29/2024 CALCIUM 9.0 01/29/2024 NA 139 01/29/2024 K 4.8 01/29/2024 CL 103 01/29/2024 BUN 21 01/29/2024 CREATININE 1.16 01/29/2024 Lab Results Component Value Date WBC 5.94 01/29/2024 HGB 14.4 01/29/2024 HCT 41.6 01/29/2024 MCV 93.7 01/29/2024 EXTMCV 94.8 03/12/2018 PLT 106 (L) 01/29/2024 RBC 4.44 (L) 01/29/2024 Lab Results Component Value Date CHOL 176 02/04/2023 LDLCALC 101 02/04/2023 TRIG 129 02/04/2023 HDL 49 02/04/2023 documented in this [id number] Instructions* Patient Instructions* Jose Canseco RN - 04/27/2024 1:38 PM EDT Please START hydrochlorothiazide 12.5 mg daily In 2 weeks, you will need to get lab work completed to check your kidney function Please call us around this time with your home blood pressure and heart rate log How to contact your Care Team: Provider: Erlin Alcaraz MD Nurse: Jose Canseco RN Mill Platform Supervisor: Ann-Marie Hernandez MA In case of an emergency please call 911. REFILLS: When in need for refills please call your care team or the office at [phone]. Please include medication name, pharmacy name, and specify 30-day or 90-day supply. Please check with your pharmacy within 24 hours of request for your refill. You must follow up as directed to continue current refills. Thank you documented in this [id number] History of Present illness Narrative* Pepe Loredo, TUBE ROOM CASHIER - 01/29/2024 10:45 AM EDT Hematology/Oncology Clinic Follow Up Note Patient ID: Jorge Fitch Sr. is a 73 y.o. male. Diagnosis: Acute Myelogenous Leukemia, Hepatitis C positive Date of Diagnosis: 1980 Treatment: Standard induction therapy with daunorubicin and kady-C (Cytarabine) and 2 cycles of maintenance therapy with daunorubicin and kady-C (Cytarabine) PCP: Perla Mosley DO Oncologist: [facility] Hematology/Oncology Interval History: The patient returns in follow up of acute myelogenous leukemia diagnosed in 1980. He denies any hospitalizations since his last office visit or new medications. He takes vitamin supplements, He denies fevers, chills, night sweats, weight loss, or lymphadenopathy. He is quite emotional today as he lost his best friend unexpectedly 5 weeks ago. He actually had toperform CPR on her, and her family has been very ungrateful and upsetting to him. He also lost his grandson in a 4-gonzalez accident in October,. He is talking with his lacquer polisher on a regular basis atthis time. His CBC is unremarkable other than persistent, mild thrombocytopenia most likely secondary to his chemotherapy treatment for AML. His potassium 5.5, we reached out to Dr. Alcaraz for recommendations asthis is a chronic problem for the patient. History of Present Illness: Mr. Jorge Fitch Sr.is a 73 y.o. male with a past medical historyof hypertension, hyperlipidemia, acute myelogenous leukemia diagnosed in 1980. He had standard induction chemotherapy and 2 cycles of maintenance therapy with daunorubicin and kady-C at the [facility]. He has been in remission since that time, but continues to have persistent thrombocytopenia most likely related to treatment of his leukemia. After chemotherapy, the patient had an episode of hepatitis which last several months. We have no previous hepatitis serology on the patient. The following portions of the patient's history were reviewed and updated as appropriate: allergies, current medications, past family history, past social history, past surgical history and problem list. 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 Past Surgical History: Procedure Laterality Date APPENDECTOMY CHOLECYSTECTOMY HEART ABLATION Family History Problem Relation Age of Onset Heart defect Mother broken heart Lupus Mother Diabetes Father Hypertension Father Other (COVID) Sister 2020 Lupus Sister No Known Problems Son No Known Problems Son No Known Problems Son No Known Problems Son No Known Problems Daughter Social History Socioeconomic History Marital status: Single Tobacco Use Smoking status: Never Smokeless tobacco: Never Vaping Use Vaping Use: Never used Substance and Sexual Activity Alcohol use: No Drug use: No Sexual activity: Not Currently Allergies Allergen Reactions Penicillins Rash Atorvastatin Unknown Simvastatin Unknown Current Outpatient Medications on File Prior to Visit Medication Sig Dispense Refill nitroGLYCERIN (NITROSTAT) 0.4 MG SL tablet TAKE 1 TABLET SUBLINGUALLY EVERY 5 TO 15 MINUTES NEEDED FOR CHEST PAIN metoprolol tartrate (LOPRESSOR) 25 MG tablet Take 1 (one) tablet (25 mg total) by mouth once daily . [DISCONTINUED] amLODIPine (NORVASC) 5 MG tablet Take 1 (one) tablet (5 mg total) by mouth daily . (Patient not taking: Reported on 01/29/2024 .) 90 tablet 3 [DISCONTINUED] cyanocobalamin/folic ac/vit B6 (FOLIC ACID-VIT B6-VIT B12 ORAL) Take by mouth once daily. [DISCONTINUED] fenofibrate 54 MG tablet Take 1 (one) tablet (54 mg total) by mouth daily . [DISCONTINUED] axxzhlwddkj-rymfrehaa-pid C-Mn 500-400 mg cap Take 500 mg by mouth daily. [DISCONTINUED] montelukast (SINGULAIR) 10 mg tablet TAKE 1 TABLET BY MOUTH ONCE DAILY NEEDED FORALLERGIES No current facility-administered medications on file prior to visit. Review of Systems General Constitutional: Denied fevers, chills, anorexia, weight loss, or night sweats + fatigue Eyes: denied blurry vision ENT: denied nasal drainage, sinus pressure Mouth: denied oral ulcers Endocrine: unusual weight loss, heat or cold intolerance, polyuria, polydipsia, or hair loss/gain Lymphatics: no new adenopathy in cervical, supraclavicular, axillary, inguinal regions Respiratory: no cough, SOB CV: denied palpitations, chest pain/pressure, PND, orthopnea. GI: denied abd pain, n/v/d, constipation, melena. : denied dysuria, urgency, frequency or hematuria. Skin: no rashes or lesions Musculoskeletal: denied muscle/joint/bone pain Hematologic/lmmunologic: no adenopathy, bleeding, easy bruisiality or recurrent infection. Neurology: Denied new headaches, numbness or weakness of extremities Psych: denied anxiety, depression or mood swings Physical Exam Objective: BP (!) 173/93 (BP Location: Left arm) Pulse 73 Temp 97.9 F (36.6 C) (Oral) Ht 6' Wt 88.7 kg(195 lb 8 oz) SpO2 97% BMI 26.51 kg/m General Appearance: Alert, well developed, and in no acute distress. HEENT: Head - Normocephalic, atraumatic. No temporal wasting . Eyes - ARRON bilaterally and EOMI, anicteric sclerae. Ears - normal external appearance, hearing intact. Nose - normal, no erythema. Throat - mucous membranes moist, pharynx without lesions. Neck: Supple, trachea midline. Cardiovascular: S1, S2 normal. No murmurs, rubs, clicks or gallops appreciated. No pedal edema. Respiratory: Lungs clear to auscultation, no wheezes, rales or rhonchi heard. Abdomen: Soft, non-tender, normal bowel sounds, non-distended, no hepatosplenomegaly Neurological: Grossly normal motor and sensory exam. No focal deficits. Musculoskeletal: No joint tenderness, deformity. Skin: Normal coloration and turgor. No rashes. Psych: Alert, oriented x 3. Normal mood and affect. Labs: Lab Results Component Value Date WBC 5.17 01/26/2024 HGB 14.4 01/26/2024 HCT 42.4 01/26/2024 MCV 95.5 01/26/2024 EXTMCV 94.8 03/12/2018 PLT 102 (L) 01/26/2024 RBC 4.44 (L) 01/26/2024 01/31/2022 hepatitis C antibody positive, hepatitis B negative, Hepatitis A negative, Haptoglobin decreased at 32.4, HIV negative, LDH normal at 180, iron studies normal, B12 344, folate 12.2 Peripheral smear 01/21/22 1. Mild absolute monocytosis. Unremarkable white blood cell morphology 2. Unremarkable red blood cell indices and morphology 3. Thrombocytopenia Assessment and Recommendation Assessment/Plan:The patient returns in follow up of acute myelogenous leukemia diagnosed in 1980. He denies any hospitalizations since his last office visit or new medications. He takes vitamin supplements. His CBC is unremarkable other than persistent, mild thrombocytopenia most likely secondary to his chemotherapy treatment for AML. Acute myeloid leukemia in remission Acute myelogenous leukemia diagnosed in 1980. He had standard induction chemotherapy and 2 cycles of maintenance therapy with daunorubicin and kady-C at the [facility]. He has been in complete remission over 30 years. After chemotherapy, the patient had an episode of hepatitis which last several months. We have no previous hepatitis serology on the patient. Since that time has a moderate thrombocytopenia in the high 100,000's range. He has no clinical bleeding or bruising. -01/27/2023 normal at 5.06, hemoglobin normal at 13.9 hematocrit normal 41, MCV normal at 94.3, platelets decreased at 108 white blood cell differential unremarkable. BUN 28, creatinine 1.30, EGFR 59,potassium 5.2, CMP otherwise unremarkable. - Follow up in one year with CBC with SKYLER Robb His CBC is unremarkable other than persistent, mild thrombocytopenia most likely secondary to his chemotherapy treatment for AML. After chemotherapy, the patient had an episode of hepatitis which last several months. We have no previous hepatitis serology on the patient. Since that time has a moderate thrombocytopenia in the high 100's He has no clinical bleeding or bruising . He had an evaluation for thrombocytopenia at [facility] 12/2012.HIV negative, hepatitis B core antibody negative, hepatitis surface antigen negative, hepatitis B surface antibody qualitative negative, hepatitis C antibody 180 positive, HCVRNA by PCR unable to quantity not sufficient.Total protein 6.3, albumin 3.8, calcium 8.8, total bili 1.7, alk phos 79, AST 23. He was referred to infectious disease for Hepatitis treatment. CT abdomen pelvis 02/09/2013 with normal spleen, normal liver, no acute abnormality. - 01/29/22, platelets remain stable at 112. It has been quite some time since the patient has had work up for thrombocytopenia. I have offered him the option of a repeat work up, and he is in agreement. -01/31/2022 hepatitis C antibody positive, hepatitis B negative, Hepatitis A negative, Haptoglobin decreased at 32.4, HIV negative, LDH normal at 180, iron studies normal, B12 344, folate 12.2 Peripheral smear 01/21/22:1. Mild absolute monocytosis. Unremarkable white blood cell morphology 2. Unremarkable red blood cell indices and morphology 3. Thrombocytopenia 01/26/2024 WBC 5.17, hemoglobin 14.1, platelets 102 Hyperkalemia - chronic per history. Managed by cardiology. 01/26/24 Potassium 5.5. repeat BMP at [facility] this week. He will schedule a follow up with cardiology. Hypertension: per history BP: (!) 173/93 Fatigue: He complains of increased fatigue, so much so that he is unable to carry out his normal busy work schedule. He denies any chest pain, shortness of breath. - given his history of cardiotoxic chemotherapy for treatment of his AML, it would be reasonable torefer to cardio-oncology clinic. Patient is in agreement. He saw Dr. Alcaraz in January of 2023, he was to return in 6 months, but did not do that. He is going to schedule a follow up. Situational Depression:He is quite emotional today as he lost his best friend unexpectedly 5 weeks ago. He actually had to perform CPR on her, and her family has been very ungrateful and upsetting tohim. He also lost his grandson in a 4- gonzalez accident in October,. 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 RTC in 1 year I personally spend 45 minutes on this encounter today including time spent seeing the patient, timespent reviewing the chart, and time spent writing notes. Education Provided Education/Instructions given to: (x) Patient (_) Spouse (_) Parent (_) Other Barriers to Learning: (x) None (_) Yes (identify):_ Content: (x) Refer to note above (_)Other (identify):_ Evaluation/Outcome: (x) Verbalized understanding (_) Demonstrated understanding (_) Other:_ Symptom Management: 1. Pain Assessment/Effectiveness of Narcotics: N/A 2. Narcotic induced Constipation: N/A 3. Emotional Well Being Assessment: Stable, no signs or symtoms of depression 4. Chemotherapy Side effects: denies Advanced Directives: Full Code NAY Robb NCCN Guidelines for Surveillance after induction therapy CBC every 1-3 months for 2 years CBC every 3-6 months for 5 years CBC annually after 5 years documented in this [id number] Instructions* Patient Instructions* Pepe Loredo CNP - 01/28/2024 5:39 PM EDT Please stop at the laboratory on the 2nd floor of this building (located to the left as you step off the elevator). Tell the lab staff you have labs ordered in the system from Pepe Loredo CNP Please contact cardiology about a follow up appointment Follow up in one year Please have your blood work drawn 1 WEEK PRIOR to your next appointment. Your appointment may be rescheduled if you do not get your lab work. The orders are in the system. You can go to any [facility] to have them drawn documented in this [id number] Instructions* Patient Instructions* Jose Canseco RN - 02/04/2023 11:00 AM EDT How to contact your Care Team: Provider: Erlin Alcaraz MD Nurse: Jose Canseco RN In case of an emergency please call 911. REFILLS: When in need for refills please call your care team or the office at [phone]. Please include medication name, pharmacy name, and specify 30-day or 90-day supply. Please check with your pharmacy within 24 hours of request for your refill. You must follow up as directed to continue current refills. Thank you documented in this [id number] History of Present illness Narrative* Erlin Alcaraz MD - 02/04/2023 10:36 AM EDT Cardiology Clinic Visit Heart & Vascular [facility] 02/04/2023 Erlin Alcaraz MD [address] [place] [address] Office [facility] [id number] Patient: Jorge Fitch Sr. Date of : 1950 (72 y.o.) Referring Provider: Pepe Loredo, TUBE ROOM CASHIER PCP: Perla Arroyo, DO Assessment & Plan Jorge Fitch is a 72 y.o. man with history of AML status post standard induction chemotherapy and 2 cycles of maintenance therapy with daunorubicin and Kady-C at the [facility] in 1980, hypertension, hyperlipidemia, thrombocytopenia and hepatitis C who was referred to the clinic for fatigue. Fatigue -we discussed possible etiologies of fatigue. The patient is not having exertional fatigue and likely not related to coronary artery disease. We did discuss repeating an echocardiogram given his prior history of cardiotoxic chemotherapy. TSH ordered to evaluate thyroid function. The patientalso has hepatitis C for which I have referred him to infectious disease. We also discussed that metoprolol may be the cause of his fatigue. We will stop the medication. Further management pending echocardiogram and lab work. Paroxysmal atrial fibrillation-the patient underwent to atrial fibrillation ablations with the lastbeing in [address] Siddiqui. Patient was taken off of anticoagulation given no recurrence ofA-fib and given his prior history of AML and thrombocytopenia. Patient was very symptomatic prior to his atrial fibrillation ablations. He has not had the same symptoms since then. We will stop metoprolol as above given fatigue. Hepatitis C antibody positive-referral to infectious disease. Hyperlipidemia-no recent lipid panel in our system- lipid panel ordered, further management pendinglipid panel. HTN - BP is reasonably controlled today, I have asked him to keep a blood pressure log over the next 2 weeks and call the clinic. We will adjust medications as needed. Return in about 6 months (around 08/06/2023). Erlin Alcaraz MD [facility] Non-Invasive Cardiology [facility] Chief Complaint: Initial Visit (Intake) (Patient c/o severe fatigue/ elevated BP ) Subjective Jorge Fitch is a 72 y.o. man with history of AML status post standard induction chemotherapy and 2 cycles of maintenance therapy with daunorubicin and Kady-C at the [facility] in 1980, hypertension, hyperlipidemia, thrombocytopenia and hepatitis C who was referred to the clinic for fatigue. Patient denies having chest pain or shortness of breath with activity. He denies having fatigue with activity. He reports that he does occasionally have episodes of fatigue when sitting and resting. 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 He does have lower extremity swelling which resolves with putting his feet up. He denies PND and orthopnea. He denies palpitations. He denies lightheadedness dizziness. He denies any episodes syncope Review of Systems: Constitution: Negative. HENT: Negative. Cardiovascular: As above. Respiratory: As above. Endocrine: Negative. Skin: Negative. Musculoskeletal: Negative. Gastrointestinal: Negative. Genitourinary: Negative. Neurological: Negative. Psychiatric/Behavioral: Negative. 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 Past Surgical History: Procedure Laterality Date APPENDECTOMY CHOLECYSTECTOMY HEART ABLATION Family History Problem Relation Age of Onset Heart defect Mother broken heart Lupus Mother Diabetes Father Hypertension Father Other (COVID) Sister 2020 Lupus Sister No Known Problems Son No Known Problems Son No Known Problems Son No Known Problems Son No Known Problems Daughter Social History Tobacco Use Smoking Status Never Smokeless Tobacco Never Allergies: Penicillins, Atorvastatin, and Simvastatin HOME Medications: Current Outpatient Medications on File Prior to Visit Medication Sig cyanocobalamin/folic ac/vit B6 (FOLIC ACID-VIT B6-VIT B12 ORAL) Take by mouth once daily. fenofibrate 54 MG tablet Take 1 (one) tablet (54 mg total) by mouth daily . pncdhzrrlpn-ohjpliefe-mnz C-Mn 500-400 mg cap Take 500 mg by mouth daily. lisinopriL (PRINIVIL,ZESTRIL) 10 MG tablet Take 2 (two) tablets (20 mg total) by mouth daily . metoprolol succinate (TOPROL-XL) 25 MG 24 hr tablet montelukast (SINGULAIR) 10 mg tablet TAKE 1 TABLET BY MOUTH ONCE DAILY NEEDED FOR ALLERGIES nitroGLYCERIN (NITROSTAT) 0.4 MG SL tablet TAKE 1 TABLET SUBLINGUALLY EVERY 5 TO 15 MINUTES NEEDED FOR CHEST PAIN No current facility-administered medications on file prior to visit. Physical Examination: BP 138/86 (BP Location: Left arm) Pulse 69 Wt 90.7 kg (200 lb) SpO2 98% BMI 27.12 kg/m Constitutional: Appears well-developed and well-nourished. No distress. HENT: Head: Normocephalic and atraumatic. Eyes: Conjunctivae and EOM are normal. No scleral icterus. Neck: Normal range of motion. Cardiovascular: Normal rate and regular rhythm. Exam reveals no gallop and no friction rub. No murmur heard. No JVP elevation. No LE edema. Pulmonary/Chest: Effort normal and breath sounds normal. No respiratory distress. No wheezes. No rales. Abdominal: Soft. Bowel sounds are normal. There is no abdominal tenderness. Musculoskeletal: Normal range of motion. Neurological: AOx3, moving all ext. Skin: Skin is warm and dry. No rash noted. Psychiatric: Normal mood and affect. Cardiovascular Studies: 02/06/16 TTE Conclusions: There is normal left ventricular systolic function. The ejection fraction is calculated to be 59% using the Method of Disks. ave. GL Strain -17% as a baseline ECG - sinus rhythm - normal ECG 02/04/23 Labs: Lab Results Component Value Date GLUCOSE 113 (H) 01/27/2023 CALCIUM 9.0 01/27/2023 NA 141 01/27/2023 K 5.2 (H) 01/27/2023 CL 109 (H) 01/27/2023 BUN 28 (H) 01/27/2023 CREATININE 1.30 01/27/2023 Lab Results Component Value Date WBC 5.06 01/27/2023 HGB 13.9 01/27/2023 HCT 41.0 01/27/2023 MCV 94.3 01/27/2023 EXTMCV 94.8 03/12/2018 PLT 108 (L) 01/27/2023 RBC 4.35 (L) 01/27/2023 No results found for: CHOL, LDLCALC, LDLDIRECT, TRIG, HDL documented in this [id number] History of Present illness Narrative* Pepe Loredo, TUBE ROOM CASHIER - 01/30/2023 10:00 AM EDT Hematology/Oncology Clinic Follow Up Note Patient ID: Jorge Fitch Sr. is a 72 y.o. male. Diagnosis: Acute Myelogenous Leukemia, Hepatitis C positive Date of Diagnosis: 1980 Treatment: Standard induction therapy with daunorubicin and kady-C (Cytarabine) and 2 cycles of maintenance therapy with daunorubicin and kady-C (Cytarabine) PCP: Perla Mosley DO Oncologist: [facility] Hematology/Oncology Interval History: The patient returns in follow up of acute myelogenous leukemia diagnosed in 1980. He denies any hospitalizations since his last office visit or new medications. He takes vitamin supplements, He denies fevers, chills, night sweats, weight loss, or lymphadenopathy. He complains of increased fatigue, so much so that he is unable to carry out his normal busy work schedule. His CBC is unremarkable other than persistent, mild thrombocytopenia most likely secondary to his chemotherapy treatment for AML. History of Present Illness: Mr. Jorge Fitch Sr.is a 72 y.o. male with a past medical historyof hypertension, hyperlipidemia, acute myelogenous leukemia diagnosed in 1980. He had standard induction chemotherapy and 2 cycles of maintenance therapy with daunorubicin and kady-C at the [facility]. He has been in remission since that time, but continues to have persistent thrombocytopenia most likely related to treatment of his leukemia. After chemotherapy, the patient had an episode of hepatitis which last several months. We have no previous hepatitis serology on the patient. The following portions of the patient's history were reviewed and updated as appropriate: allergies, current medications, past family history, past social history, past surgical history and problem list. 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 Past Surgical History: Procedure Laterality Date APPENDECTOMY CHOLECYSTECTOMY HEART ABLATION Family History Problem Relation Age of Onset Heart defect Mother broken heart Lupus Mother Diabetes Father Hypertension Father Other (COVID) Sister 2020 Lupus Sister No Known Problems Son No Known Problems Son No Known Problems Son No Known Problems Son No Known Problems Daughter Social History Socioeconomic History Marital status: Single Tobacco Use Smoking status: Never Smokeless tobacco: Never Vaping Use Vaping Use: Never used Substance and Sexual Activity Alcohol use: No Drug use: No Sexual activity: Not Currently Allergies Allergen Reactions Penicillins Rash Atorvastatin Unknown Simvastatin Unknown Current Outpatient Medications on File Prior to Visit Medication Sig Dispense Refill cyanocobalamin/folic ac/vit B6 (FOLIC ACID-VIT B6-VIT B12 ORAL) Take by mouth once daily. fenofibrate 54 MG tablet Take 1 (one) tablet (54 mg total) by mouth daily . lisinopriL (PRINIVIL,ZESTRIL) 10 MG tablet Take 2 (two) tablets (20 mg total) by mouth daily . metoprolol succinate (TOPROL-XL) 25 MG 24 hr tablet montelukast (SINGULAIR) 10 mg tablet TAKE 1 TABLET BY MOUTH ONCE DAILY NEEDED FOR ALLERGIES vatozwvthao-ggqcyebck-xma C-Mn 500-400 mg cap Take 500 mg by mouth daily. nitroGLYCERIN (NITROSTAT) 0.4 MG SL tablet TAKE 1 TABLET SUBLINGUALLY EVERY 5 TO 15 MINUTES NEEDED FOR CHEST PAIN No current facility-administered medications on file prior to visit. Review of Systems General Constitutional: Denied fevers, chills, anorexia, weight loss, or night sweats + fatigue Eyes: denied blurry vision ENT: denied nasal drainage, sinus pressure Mouth: denied oral ulcers Endocrine: unusual weight loss, heat or cold intolerance, polyuria, polydipsia, or hair loss/gain Lymphatics: no new adenopathy in cervical, supraclavicular, axillary, inguinal regions Respiratory: no cough, SOB CV: denied palpitations, chest pain/pressure, PND, orthopnea. GI: denied abd pain, n/v/d, constipation, melena. : denied dysuria, urgency, frequency or hematuria. Skin: no rashes or lesions Musculoskeletal: denied muscle/joint/bone pain Hematologic/lmmunologic: no adenopathy, bleeding, easy bruisiality or recurrent infection. Neurology: Denied new headaches, numbness or weakness of extremities Psych: denied anxiety, depression or mood swings Physical Exam Objective: BP (!) 157/90 (BP Location: Left arm) Pulse 72 Temp 98 F (36.7 C) (Oral) Ht 6' Wt 91.3 kg (201 lb 4.8 oz) SpO2 97% BMI 27.30 kg/m General Appearance: Alert, well developed, and in no acute distress. HEENT: Head - Normocephalic, atraumatic. No temporal wasting . Eyes - ARRON bilaterally and EOMI, anicteric sclerae. Ears - normal external appearance, hearing intact. Nose - normal, no erythema. Throat - mucous membranes moist, pharynx without lesions. Neck: Supple, trachea midline. Cardiovascular: S1, S2 normal. No murmurs, rubs, clicks or gallops appreciated. No pedal edema. Respiratory: Lungs clear to auscultation, no wheezes, rales or rhonchi heard. Abdomen: Soft, non-tender, normal bowel sounds, non-distended, no hepatosplenomegaly Neurological: Grossly normal motor and sensory exam. No focal deficits. Musculoskeletal: No joint tenderness, deformity. Skin: Normal coloration and turgor. No rashes. Psych: Alert, oriented x 3. Normal mood and affect. Labs: Lab Results Component Value Date WBC 5.06 01/27/2023 HGB 13.9 01/27/2023 HCT 41.0 01/27/2023 MCV 94.3 01/27/2023 EXTMCV 94.8 03/12/2018 PLT 108 (L) 01/27/2023 RBC 4.35 (L) 01/27/2023 01/31/2022 hepatitis C antibody positive, hepatitis B negative, Hepatitis A negative, Haptoglobin decreased at 32.4, HIV negative, LDH normal at 180, iron studies normal, B12 344, folate 12.2 Peripheral smear 01/21/22 1. Mild absolute monocytosis. Unremarkable white blood cell morphology 2. Unremarkable red blood cell indices and morphology 3. Thrombocytopenia Assessment and Recommendation Assessment/Plan:The patient returns in follow up of acute myelogenous leukemia diagnosed in 1980. He denies any hospitalizations since his last office visit or new medications. He takes vitamin supplements. His CBC is unremarkable other than persistent, mild thrombocytopenia most likely secondary to his chemotherapy treatment for AML. Acute myeloid leukemia in remission Acute myelogenous leukemia diagnosed in 1980. He had standard induction chemotherapy and 2 cycles of maintenance therapy with daunorubicin and kady-C at the [facility]. He has been in complete remission over 30 years. After chemotherapy, the patient had an episode of hepatitis which last several months. We have no previous hepatitis serology on the patient. Since that time has a moderate thrombocytopenia in the high 100,000's range. He has no clinical bleeding or bruising. -01/27/2023 normal at 5.06, hemoglobin normal at 13.9 hematocrit normal 41, MCV normal at 94.3, platelets decreased at 108 white blood cell differential unremarkable. BUN 28, creatinine 1.30, EGFR 59,potassium 5.2, CMP otherwise unremarkable. - Follow up in one year with CBC with SKYLER Robb His CBC is unremarkable other than persistent, mild thrombocytopenia most likely secondary to his chemotherapy treatment for AML. After chemotherapy, the patient had an episode of hepatitis which last several months. We have no previous hepatitis serology on the patient. Since that time has a moderate thrombocytopenia in the high 100's He has no clinical bleeding or bruising . He had an evaluation for thrombocytopenia at [facility] 12/2012.HIV negative, hepatitis B core antibody negative, hepatitis surface antigen negative, hepatitis B surface antibody qualitative negative, hepatitis C antibody 180 positive, HCVRNA by PCR unable to quantity not sufficient.Total protein 6.3, albumin 3.8, calcium 8.8, total bili 1.7, alk phos 79, AST 23. He was referred to infectious disease for Hepatitis treatment. CT abdomen pelvis 02/09/2013 with normal spleen, normal liver, no acute abnormality. - 01/29/22, platelets remain stable at 112. It has been quite some time since the patient has had work up for thrombocytopenia. I have offered him the option of a repeat work up, and he is in agreement. -01/31/2022 hepatitis C antibody positive, hepatitis B negative, Hepatitis A negative, Haptoglobin decreased at 32.4, HIV negative, LDH normal at 180, iron studies normal, B12 344, folate 12.2 Peripheral smear 01/21/22:1. Mild absolute monocytosis. Unremarkable white blood cell morphology 2. Unremarkable red blood cell indices and morphology 3. Thrombocytopenia - Follow up in one year with Pepe Loredo CNP Fatigue: He complains of increased fatigue, so much so that he is unable to carry out his normal busy work schedule. He denies any chest pain, shortness of breath. - given his history of cardiotoxic chemotherapy for treatment of his AML, it would be reasonable torefer to cardio-oncology clinic. Patient is in agreement. I personally spend 40 minutes on this encounter today including time spent seeing the patient, timespent reviewing the chart, and time spent writing notes. Education Provided Education/Instructions given to: (x) Patient (_) Spouse (_) Parent (_) Other Barriers to Learning: (x) None (_) Yes (identify):_ Content: (x) Refer to note above (_)Other (identify):_ Evaluation/Outcome: (x) Verbalized understanding (_) Demonstrated understanding (_) Other:_ Symptom Management: 1. Pain Assessment/Effectiveness of Narcotics: N/A 2. Narcotic induced Constipation: N/A 3. Emotional Well Being Assessment: Stable, no signs or symtoms of depression 4. Chemotherapy Side effects: denies Advanced Directives: Full Code NAY Robb NCCN Guidelines for Surveillance after induction therapy CBC every 1-3 months for 2 years CBC every 3-6 months for 5 years CBC annually after 5 years documented in this [id number] Instructions* Patient Instructions* Pepe Loredo CNP - 01/30/2023 8:42 AM EDT Follow up in one year with labs prior to your appointment Please have your blood work drawn prior to your next appointment. The orders are in the system. Youcan go to any [facility] to have them drawn I will refer to you to Cardio-Oncology documented in this [id number] Instructions* Patient Instructions* Pepe Loredo CNP - 01/31/2022 10:23 AM EDT Please stop at the laboratory on the 2nd floor of this building (located to the left as you step off the elevator). Tell the lab staff you have labs ordered in the system from Pepe Loredo CNP I will order abdominal ultrasound -they will call you to schedule Telephone visit for results in 3 weeks Follow up in one year with Pepe documented in this [id number] History of Present illness Narrative* Pepe Loredo CNP - 01/31/2022 10:00 AM EDT Hematology/Oncology Clinic Follow Up Note Patient ID: Jorge Fitch Sr. is a 71 y.o. male. Diagnosis: Acute Myelogenous Leukemia Date of Diagnosis: 1980 Treatment: Standard induction therapy with daunorubicin and kady-C (Cytarabine) and 2 cycles of maintenance therapy with daunorubicin and kady-C (Cytarabine) PCP: Perla Mosley DO Oncologist: [facility] Hematology/Oncology Interval History: The patient returns in follow up of acute myelogenous leukemia diagnosed in 1980. He denies any hospitalizations since his last office visit or new medications. He takes vitamin supplements, but has stopped his cholesterol medication. He denies fevers, chills, night sweats, weight loss, or lymphaden opathy. His CBC is unremarkable other than persistent, mild thrombocytopenia most likely secondary to his chemotherapy treatment for AML. History of Present Illness: Mr. Jorge Fitch Sr.is a 71 y.o. male with a past medical historyof hypertension, hyperlipidemia, acute myelogenous leukemia diagnosed in 1980. He had standard induction chemotherapy and 2 cycles of maintenance therapy with daunorubicin and kady-C at the [facility]. He has been in remission since that time, but continues to have persistent thrombocytopenia most likely related to treatment of his leukemia. After chemotherapy, the patient had an episode of hepatitis which last several months. We have no previous hepatitis serology on the patient. The following portions of the patient's history were reviewed and updated as appropriate: allergies, current medications, past family history, past social history, past surgical history and problem list. Past Medical History: Diagnosis Date Acute myelogenous leukemia (HCC) 1980 Hepatitis C 2012 Hyperlipidemia Hypertension Thrombocytopenia (HCC) secondary to chemotherapy for AML Past Surgical History: Procedure Laterality Date APPENDECTOMY CHOLECYSTECTOMY HEART ABLATION Review of Systems General Constitutional: Denied fevers, chills, anorexia, weight loss, or night sweats Eyes: denied blurry vision ENT: denied nasal drainage, sinus pressure Mouth: denied oral ulcers Endocrine: unusual weight loss, heat or cold intolerance, polyuria, polydipsia, or hair loss/gain Lymphatics: no new adenopathy in cervical, supraclavicular, axillary, inguinal regions Respiratory: no cough, SOB CV: denied palpitations, chest pain/pressure, PND, orthopnea. GI: denied abd pain, n/v/d, constipation, melena. : denied dysuria, urgency, frequency or hematuria. Skin: no rashes or lesions Musculoskeletal: denied muscle/joint/bone pain Hematologic/lmmunologic: no adenopathy, bleeding, easy bruisiality or recurrent infection. Neurology: Denied new headaches, numbness or weakness of extremities Psych: denied anxiety, depression or mood swings Physical Exam Objective: BP (!) 143/75 (BP Location: Left arm) Pulse 67 Temp 97.7 F (36.5 C) (Oral) Ht 6' Wt 86.9 kg(191 lb 9.6 oz) SpO2 98% BMI 25.99 kg/m General Appearance: Alert, well developed, and in no acute distress. HEENT: Head - Normocephalic, atraumatic. No temporal wasting . Eyes - ARRON bilaterally and EOMI, anicteric sclerae. Ears - normal external appearance, hearing intact. Nose - normal, no erythema. Throat - mucous membranes moist, pharynx without lesions. Neck: Supple, trachea midline. Cardiovascular: S1, S2 normal. No murmurs, rubs, clicks or gallops appreciated. No pedal edema. Respiratory: Lungs clear to auscultation, no wheezes, rales or rhonchi heard. Abdomen: Soft, non-tender, normal bowel sounds, non-distended, no hepatosplenomegaly Neurological: Grossly normal motor and sensory exam. No focal deficits. Musculoskeletal: No joint tenderness, deformity. Skin: Normal coloration and turgor. No rashes. Psych: Alert, oriented x 3. Normal mood and affect. Labs: Lab Results Component Value Date WBC 5.54 01/29/2022 HGB 15.1 01/29/2022 HCT 44.5 01/29/2022 MCV 95.1 01/29/2022 EXTMCV 94.8 03/12/2018 PLT 112 (L) 01/29/2022 RBC 4.68 01/29/2022 Assessment and Recommendation Assessment/Plan:The patient returns in follow up of acute myelogenous leukemia diagnosed in 1980. He denies any hospitalizations since his last office visit or new medications. He takes vitamin supplements, but has stopped his cholesterol medication. He denies fevers, chills, night sweats, weight loss, or lymphadenopathy. His CBC is unremarkable other than persistent, mild thrombocytopenia most likely secondary to his chemotherapy treatment for AML. Acute myeloid leukemia in remission Acute myelogenous leukemia diagnosed in 1980. He had standard induction chemotherapy and 2 cycles of maintenance therapy with daunorubicin and kady-C at the [facility]. He has been in complete remission over 30 years. After chemotherapy, the patient had an episode of hepatitis which last several months. We have no previous hepatitis serology on the patient. Since that time has a moderate thrombocytopenia in the high 100,000's range. He has no clinical bleeding or bruising. -01/29/22 WBC 5.54, hemoglobin 15.1 hematocrit 44.5, MCV 95.1, platelets 112, segs 55.9%, lymphs 28.2%, monocytes 14.1%, absolute neutrophils 3.10, absolute lymphocytes 1.56, absolute monocytes 0.78 - Follow up in one year with CBC with SKYLER Robb His CBC is unremarkable other than persistent, mild thrombocytopenia most likely secondary to his chemotherapy treatment for AML. After chemotherapy, the patient had an episode of hepatitis which last several months. We have no previous hepatitis serology on the patient. Since that time has a moderate thrombocytopenia in the high 100's He has no clinical bleeding or bruising . He had an evaluation for thrombocytopenia at [facility] 12/2012.HIV negative, hepatitis B core antibody negative, hepatitis surface antigen negative, hepatitis B surface antibody qualitative negative, hepatitis C antibody 180 positive, HCVRNA by PCR unable to quantity not sufficient.Total protein 6.3, albumin 3.8, calcium 8.8, total bili 1.7, alk phos 79, AST 23. He was referred to infectious disease for Hepatitis treatment. CT abdomen pelvis 02/09/2013 with normal spleen, normal liver, no acute abnormality. - 01/29/22, platelets remain stable at 112. It has been quite some time since the patient has had work up for thrombocytopenia. I have offered him the option of a repeat work up, and he is in agreement. -We will order CBC with differential, CMP, LDH, haptoglobin, iron studies with ferritin, B12/folate, peripheral blood smear, HIV, acute hepatitis panel, abdominal ultrasound to further evaluate. - Telephone visit in 3 weeks to discuss results - Follow up in one year with Pepe Loredo CNP Education Provided Education/Instructions given to: (x) Patient (_) Spouse (_) Parent (_) Other Barriers to Learning: (x) None (_) Yes (identify):_ Content: (x) Refer to note above (_)Other (identify):_ Evaluation/Outcome: (x) Verbalized understanding (_) Demonstrated understanding (_) Other:_ Symptom Management: 1. Pain Assessment/Effectiveness of Narcotics: N/A 2. Narcotic induced Constipation: N/A 3. Emotional Well Being Assessment: Stable, no signs or symtoms of depression 4. Chemotherapy Side effects: denies Advanced Directives: Full Code NAY Robb Guidelines for Surveillance after induction therapy CBC every 1-3 months for 2 years CBC every 3-6 months for 5 years CBC annually after 5 years documented in this [id number] Instructions* Patient Instructions* Pepe Loredo CNP - 02/01/2021 11:25 AM EDT Follow up in one year with CBC with SKYLER Bailey documented in this [id number] History of Present illness Narrative* Pepe Loredo CNP - 02/01/2021 11:12 AM EDT Hematology and Oncology Clinic Follow Up Note Patient ID: Jorge Fitch Sr. is a 70 y.o. male. Diagnosis: Acute Myelogenous Leukemia Date of Diagnosis: 1980 Treatment: Standard induction therapy with daunorubicin and kady-C (Cytarabine) and 2 cycles of maintenance therapy with daunorubicin and kady-C (Cytarabine) PCP: Perla Mosley DO Oncologist: [facility] Hematology/Oncology Interval History: The patient returns in follow up of acute myelogenous leukemia diagnosed in 1980. He denies any hospitalizations since his last office visit or new medications. He takes vitamin supplements, but has stopped his cholesterol medication. He denies fevers, chills, night sweats, weight loss, or lymphadenopathy. His CBC is unremarkable other than persistent, mild thrombocytopenia most likely secondary to his chemotherapy treatment for AML. History of Present Illness: The patient has a past medical history of hypertension, hyperlipidemia, acute myelogenous leukemia diagnosed in 1980. He had standard induction chemotherapy and 2 cycles of maintenance therapy with daunorubicin and kady-C at the [facility]. He has been in remission since that time, but continues to have persistent thrombocytopenia most likely related to treatment of his leukemia Recent Results (from the past 168 hour(s)) CBC Auto Differential Collection Time: 01/29/21 9:08 AM Result Value Ref Range WBC 5.25 4.50 - 11.00 K/mcL RBC 4.80 4.50 - 5.90 M/mcL Hemoglobin 15.4 13.5 - 17.5 g/dL Hematocrit 45.9 41.0 - 53.0 % MCV 95.6 80.0 - 100.0 fL MCH 32.1 26.0 - 34.0 pg MCHC 33.6 31.0 - 37.0 g/dL Platelets 123 (L) 150 - 400 K/mcL RDW - CV 14.0 11.6 - 14.8 % MPV 9.9 9.4 - 12.4 fL Neutrophils 57.0 % Lymphocytes 26.3 % Monocytes 15.0 % Eosinophils 1.1 % Basophils 0.4 % IG Percent 0.20 % Neutrophils Abs 2.99 1.70 - 7.00 K/mcL Lymphocytes Abs 1.38 0.90 - 4.00 K/mcL Monocytes Abs 0.79 0.30 - 0.90 K/mcL Eosinophils Abs 0.06 0.00 - 0.50 K/mcL Basophils Abs 0.02 0.00 - 0.30 K/mcL IG Absolute 0.01 0.00 - 0.30 K/mcL Nucleated RBC 0.0 % Nucleated RBC Abs 0.00 0.00 - 0.00 K/mcL The following portions of the patient's history were reviewed and updated as appropriate: allergies, current medications, past family history, past social history, past surgical history and problem list. Past Medical History: Diagnosis Date Acute myelogenous leukemia (HCC) 1980 Hyperlipidemia Hypertension Thrombocytopenia (HCC) secondary to chemotherapy for AML Past Surgical History: Procedure Laterality Date APPENDECTOMY CHOLECYSTECTOMY HEART ABLATION Review of Systems Constitutional: Negative for chills, fatigue, fever and unexpected weight change. HENT: Negative for ear pain and trouble swallowing. Eyes: Negative for pain and discharge. Respiratory: Negative for cough, shortness of breath and wheezing. Cardiovascular: Negative for chest pain, palpitations and leg swelling. Gastrointestinal: Negative for abdominal pain, constipation, diarrhea, nausea and vomiting. Endocrine: Negative for cold intolerance and heat intolerance. Genitourinary: Negative for difficulty urinating and dysuria. Musculoskeletal: Negative for arthralgias, back pain and gait problem. Skin: Negative for rash. Allergic/Immunologic: Negative for environmental allergies and food allergies. Neurological: Negative for dizziness, weakness and headaches. Hematological: Negative for adenopathy. Does not bruise/bleed easily. Psychiatric/Behavioral: Negative for confusion and sleep disturbance. Objective: BP (!) 153/91 (BP Location: Left arm) Pulse 67 Temp 98 F (36.7 C) (Oral) Ht 6' Wt 91.1 kg (200 lb 12.8 oz) SpO2 97% BMI 27.23 kg/m Physical Exam Vitals and nursing note reviewed. Constitutional: General: He is not in acute distress. Appearance: He is well-developed. HENT: Head: Normocephalic and atraumatic. Eyes: Pupils: Pupils are equal, round, and reactive to light. Neck: Thyroid: No thyromegaly. Cardiovascular: Rate and Rhythm: Normal rate and regular rhythm. Heart sounds: Normal heart sounds, S1 normal and S2 normal. No murmur heard. Pulmonary: Effort: Pulmonary effort is normal. Breath sounds: Normal breath sounds. No wheezing or rales. Abdominal: General: Bowel sounds are normal. There is no distension. Palpations: Abdomen is soft. There is no hepatomegaly, splenomegaly or mass. Tenderness: There is no abdominal tenderness. There is no guarding. Musculoskeletal: General: Normal range of motion. Cervical back: Normal range of motion and neck supple. Lymphadenopathy: Head: Right side of head: No submental, submandibular, tonsillar, preauricular or posterior auricular adenopathy. Left side of head: No submental, submandibular, tonsillar, preauricular or posterior auricular adenopathy. Cervical: No cervical adenopathy. Right cervical: No superficial, deep or posterior cervical adenopathy. Left cervical: No superficial, deep or posterior cervical adenopathy. Upper Body: Right upper body: No supraclavicular, pectoral or epitrochlear adenopathy. Left upper body: No supraclavicular, pectoral or epitrochlear adenopathy. Skin: General: Skin is warm and dry. Findings: No erythema or rash. Neurological: Mental Status: He is alert and oriented to person, place, and time. Gait: Gait normal. Psychiatric: Behavior: Behavior normal. Behavior is cooperative. Thought Content: Thought content normal. Judgment: Judgment normal. Assessment/Plan:The patient returns in follow up of acute myelogenous leukemia diagnosed in 1980. He denies any hospitalizations since his last office visit or new medications. He takes vitamin supplements, but has stopped his cholesterol medication. He denies fevers, chills, night sweats, weight loss, or lymphadenopathy. His CBC is unremarkable other than persistent, mild thrombocytopenia most likely secondary to his chemotherapy treatment for AML. 1. Acute myeloid leukemia in remission (HCC) - CBC and Differential; Future - Follow up in one year with CBC with Pepe Loredo CNP 2. Thrombocytopenia (HCC) I personally spend 32 minutes on this encounter today including time spent seeing the patient, timespent reviewing the chart, and time spent writing notes. Education Provided Education/Instructions given to: (x) Patient (_) Spouse (_) Parent (_) Other Barriers to Learning: (x) None (_) Yes (identify):_ Content: (x) Refer to note above (_)Other (identify):_ Evaluation/Outcome: (x) Verbalized understanding (_) Demonstrated understanding (_) Other:_ Symptom Management: 1. Pain Assessment/Effectiveness of Narcotics: N/A 2. Narcotic induced Constipation: N/A 3. Emotional Well Being Assessment: Stable, no signs or symtoms of depression 4. Chemotherapy Side effects: denies Advanced Directives: Full Code NAY Robb documented in this [id number] Fall risk [id number] [facility] Work Phone: Evaluation note* Diagnosis Acute myeloid leukemia in remission (HCC) Acute myeloid leukemia in remission Thrombocytopenia (HCC) Unspecified thrombocytopenia [facility] Diagnosis Thrombocytopenia (HCC)- Primary Unspecified thrombocytopenia [facility] Diagnosis Thrombocytopenia (HCC)- Primary Unspecified thrombocytopenia Acute myeloid leukemia in remission (HCC) Acute myeloid leukemia in remission [facility] Diagnosis Onset Date Resolution Status Atherosclerotic heart diseas e of [place] coronary artery without angina pectoris chronic Essential hypertension chron ic History of radiofrequency ab lation (RFA) procedure for cardiac arrhythmia chronic Mixed hyperlipidemia chronic Paroxysmal atrial fibrillation chronic Stented coronary artery 2008 [facility] Work Phone: Evaluation note* Diagnosis Thrombocytopenia (HCC)- Primary Unspecified thrombocytopenia Acute myeloid leukemia in remission (HCC) Acute myeloid leukemia in remission Fatigue, unspecified type Status post administration of cardiotoxic chemotherapy [facility] Diagnosis Fatigue, unspecified type- Primary Acute myeloid leukemia in remission (HCC) Acute myeloid leukemia in remission Status post administration of cardiotoxic chemotherapy Chronic hepatitis C without hepatic coma (HCC) Hyperlipidemia, unspecified hyperlipidemia type Hyperkalemia Hyperpotassemia Hypertension, unspecified type documented in this encounter [facility] note* Diagnosis Acute myeloid leukemia in remission (HCC)- Primary Acute myeloid leukemia in remission Status post administration of cardiotoxic chemotherapy Fatigue, unspecified type Thrombocytopenia (HCC) Unspecified thrombocytopenia Hyperkalemia Hyperpotassemia documented in this encounter [facility] note* Diagnosis Acute myeloid leukemia in remission (HCC)- Primary Acute myeloid leukemia in remission documented in this encounter [facility] note* Diagnosis PAF (paroxysmal atrial fibrillation) (HCC)- Primary Atrial fibrillation Hypertension, unspecified type Hyperlipidemia, unspecified hyperlipidemia type Hepatitis Unspecified hepatitis documented in this encounter [facility] note* Diagnosis PAF (paroxysmal atrial fibrillation) (HCC)- Primary Atrial fibrillation Hypertension, unspecified type Hyperlipidemia, unspecified hyperlipidemia type documented in this encounter [facility] note* Diagnosis Hyperkalemia- Primary Hyperpotassemia documented in this encounter [facility] note* Diagnosis Acute myeloid leukemia in remission (HCC)- Primary Acute myeloid leukemia in remission documented in this encounter [facility] note* Diagnosis Acute myeloid leukemia in remission (HCC)- Primary Acute myeloid leukemia in remission Thrombocytopenia Unspecified thrombocytopenia Neoplastic malignant related fatigue Status post administration of cardiotoxic chemotherapy Hyperkalemia Hyperpotassemia documented in this encounter [facility] note* Diagnosis PAF (paroxysmal atrial fibrillation) (HCC)- Primary Atrial fibrillation Hypertension, unspecified type Hyperlipidemia, unspecified hyperlipidemia type documented in this encounter [facility] for referral (narrative)No reason for referral information availableOroville Hospital Work Phone: Instructions * Patient Instructions - Felipe Jasso Jr., MD - 03/12/2018 10:56 AM EDT Plan: OFFICE APPOINTMENT IN ONE YEAR CBC,RETIC in this encounter* Patient Instructions* Felipe Jasso Jr., MD - 03/11/2019 10:25 AM EDT Plan: 1. SEE DR. ARROYO REANNA re:HYPERTENSION 2. RECOMMEND SCREENING COLONOSCOPY 3. OFFICE APPOINTMENT ONE YEAR WITH CBC documented in this encounter* Patient Instructions* Felipe Jasso Jr., MD - 03/09/2020 10:59 AM EDT Plan: 1. Itraconazole 200 mg #30 one daily for 3 months 2 refills 2. Office appointment January 2021 with CBC documented in this encounter Assessments Diagnosis Thrombocytopenia (HCC) - Ayaka jyotsna Unspecified thrombocytopenia Acute myeloid leukemia in [place] (HCC) Acute myeloid leukemia in remission Diagnosis Acute myeloid leukemia in remission (HCC)- Primary Acute myeloid leukemia in remission Thrombocytopenia (HCC) Unspecified thrombocytopenia Diagnosis Acute myeloid leukemia in remission (HCC) Acute myeloid leukemia in remission Thrombocytopenia (HCC) Unspecified thrombocytopenia Pain due to onychomycosis of toenails of both feet Summary Purpose Family History Relationship Condition Age at Onset Recorded Date/T mikala Not Specified Hypertension Unknown father Coronary artery disease Unknown Diabetes mellitus Unknown Cerebrovascular accident (CVA) Unknown Hyperlipidemia Unknown Malignant neoplasm of prostate Unknown mother Malignant neoplasm of lung Unknown Lupus erythematosus Unknown sister Lupus erythematosus Unknown Advance Directives Documents on File Type Date Recorded 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 His only complaint is that of easy bruising. 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 He denies any other constitutional symptoms Patient ID: Jorge Fitch Sr. is a 68 y.o. male. HPI: The patient had acute myelogenous leukemia diagnosed in 1980. He had standard induction chemotherapy and 2 cycles of maintenance therapy with daunorubicin and kady-C at the [facility]. He has been in remission since that time, but continues to have persistent thrombocytopenia most likely related to treatment of his leukemia. He has no other problems to report, and other than easy bruising has no new complaints. Recent Results (from the past 168 hour(s)) Reticulocyte Collection Time: 03/11/19 9:02 AM Result Value Ref Range Retic Percent 1.8 % Retic Absolute 0.083 0.040 - 0.090 M/mcL Imm Retic Fract 7.5 (L) 10.0 - 40.0 % Retic Hgb Equivalent 36.6 27.7 - 38.2 PG CBC Auto Differential Collection Time: 03/11/19 9:02 AM Result Value Ref Range WBC 4.97 4.50 - 11.00 K/mcL RBC 4.62 4.50 - 5.90 M/mcL Hemoglobin 15.1 13.5 - 17.5 g/dL Hematocrit 43.3 41.0 - 53.0 % MCV 93.7 80.0 - 100.0 fL MCH 32.7 26.0 - 34.0 pg MCHC 34.9 31.0 - 37.0 g/dL Platelets 112 (L) 150 - 400 K/mcL RDW - CV 13.6 11.6 - 14.8 % MPV 9.9 9.0 - 15.5 fL Neutrophils 58.7 % Lymphocytes 26.8 % Monocytes 12.5 % Eosinophils 1.0 % Basophils 0.6 % IG Percent 0.40 % Neutrophils Abs 2.92 1.70 - 7.00 K/mcL Lymphocytes Abs 1.33 0.90 - 4.00 K/mcL Monocytes Abs 0.62 0.30 - 0.90 K/mcL Eosinophils Abs 0.05 0.00 - 0.50 K/mcL Basophils Abs 0.03 0.00 - 0.30 K/mcL IG Absolute 0.02 0.00 - 0.30 K/mcL Nucleated RBC 0.0 % Nucleated RBC Abs 0.00 0.00 - 0.00 K/mcL The following portions of the patient's history were reviewed and updated as appropriate: allergies, current medications, past family history, past social history, past surgical history and problem list. Review of Systems Constitutional: Negative for chills, fatigue, fever and unexpected weight change. HENT: Negative for ear pain and trouble swallowing. Eyes: Negative for pain and discharge. Respiratory: Negative for cough, shortness of breath and wheezing. Cardiovascular: Negative for chest pain, palpitations and leg swelling. Gastrointestinal: Negative for abdominal pain, constipation, diarrhea, nausea and vomiting. Endocrine: Negative for cold intolerance and heat intolerance. Genitourinary: Negative for difficulty urinating and dysuria. Musculoskeletal: Negative for arthralgias, back pain and gait problem. Skin: Negative for rash. Allergic/Immunologic: Negative for environmental allergies and food allergies. Neurological: Negative for dizziness, weakness and headaches. Hematological: Negative for adenopathy. Bruises/bleeds easily. Psychiatric/Behavioral: Negative for confusion and sleep disturbance. Objective: BP (!) 169/102 (BP Location: Right arm) Pulse 71 Temp 97.7 F (36.5 C) (Oral) Ht 6' Wt 91.1 kg (200 lb 12.8 oz) SpO2 97% BMI 27.23 kg/m Physical Exam Constitutional: He is oriented to person, place, and time. He appears well- developed and well-nourished. No distress. HENT: Head: Normocephalic and atraumatic. Eyes: Pupils are equal, round, and reactive to light. Neck: Normal range of motion. Neck supple. Cardiovascular: Normal rate, regular rhythm and normal heart sounds. No murmur heard. Pulmonary/Chest: Effort normal and breath sounds normal. He has no wheezes. He has no rales. Abdominal: Soft. Bowel sounds are normal. He exhibits no mass. There is no splenomegaly or hepatomegaly. There is no tenderness. There is no guarding. Lymphadenopathy: He has no cervical adenopathy. Neurological: He is alert and oriented to person, place, and time. Skin: Skin is warm and dry. No rash noted. No erythema. Psychiatric: He has a normal mood and affect. His behavior is normal. Judgment and thought content normal. Nursing note and vitals reviewed. Assessment/Plan: Diagnoses and all orders for this visit: Acute myeloid leukemia in remission (HCC) Thrombocytopenia (HCC) Plan: 1. SEE DR. ARROYO REANNA re:HYPERTENSION 2. RECOMMEND SCREENING COLONOSCOPY 3. 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 Patient ID: Jorge Fitch Sr. is a 69 y.o. male. HPI: The patient had acute myelogenous leukemia diagnosed in 1980. He had standard induction chemotherapy and 2 cycles of maintenance therapy with daunorubicin and kady-C at the [facility]. He has been in remission since that time, but continues to have persistent thrombocytopenia most likely related to treatment of his leukemia. Easy bruising since starting vitamins For heart. Stopped taking lisinopril and metoprolol. Recent Results (from the past 168 hour(s)) CBC Auto Differential Collection Time: 03/08/20 2:51 PM Result Value Ref Range WBC 5.57 4.50 - 11.00 K/mcL RBC 4.60 4.50 - 5.90 M/mcL Hemoglobin 15.0 13.5 - 17.5 g/dL Hematocrit 44.2 41.0 - 53.0 % MCV 96.1 80.0 - 100.0 fL MCH 32.6 26.0 - 34.0 pg MCHC 33.9 31.0 - 37.0 g/dL Platelets 122 (L) 150 - 400 K/mcL RDW - CV 13.9 11.6 - 14.8 % MPV 10.0 9.4 - 12.4 fL Neutrophils 59.7 % Lymphocytes 28.2 % Monocytes 10.8 % Eosinophils 0.7 % Basophils 0.4 % IG Percent 0.20 % Neutrophils Abs 3.33 1.70 - 7.00 K/mcL Lymphocytes Abs 1.57 0.90 - 4.00 K/mcL Monocytes Abs 0.60 0.30 - 0.90 K/mcL Eosinophils Abs 0.04 0.00 - 0.50 K/mcL Basophils Abs 0.02 0.00 - 0.30 K/mcL IG Absolute 0.01 0.00 - 0.30 K/mcL Nucleated RBC 0.0 % Nucleated RBC Abs 0.00 0.00 - 0.00 K/mcL The following portions of the patient's history were reviewed and updated as appropriate: allergies, current medications, past family history, past social history, past surgical history and problem list. Review of Systems Constitutional: Negative for chills, fatigue, fever and unexpected weight change. HENT: Negative for ear pain and trouble swallowing. Eyes: Negative for pain and discharge. Respiratory: Negative for cough, shortness of breath and wheezing. Cardiovascular: Negative for chest pain, palpitations and leg swelling. Gastrointestinal: Negative for abdominal pain, constipation, diarrhea, nausea and vomiting. Endocrine: Negative for cold intolerance and heat intolerance. Genitourinary: Negative for difficulty urinating and dysuria. Musculoskeletal: Negative for arthralgias, back pain and gait problem. Skin: Negative for rash. Allergic/Immunologic: Negative for environmental allergies and food allergies. Neurological: Negative for dizziness, weakness and headaches. Hematological: Negative for adenopathy. Does not bruise/bleed easily. Psychiatric/Behavioral: Negative for confusion and sleep disturbance. Objective: BP (!) 181/103 (BP Location: Left arm) Pulse 80 Temp 97.9 F (36.6 C) (Oral) Ht 6' Wt 90.9 kg (200 lb 4.8 oz) SpO2 97% BMI 27.17 kg/m Physical Exam Constitutional: He is oriented to person, place, and time. He appears well- developed and well-nourished. No distress. HENT: Head: Normocephalic and atraumatic. Eyes: Pupils are equal, round, and reactive to light. Neck: Normal range of motion. Neck supple. Cardiovascular: Normal rate, regular rhythm and normal heart sounds. No murmur heard. Pulmonary/Chest: Effort normal and breath sounds normal. He has no wheezes. He has no rales. Abdominal: Soft. Bowel sounds are normal. He exhibits no mass. There is no splenomegaly or hepatomegaly. There is no abdominal tenderness. There is no guarding. Lymphadenopathy: He has no cervical adenopathy. Neurological: He is alert and oriented to person, place, and time. Skin: Skin is warm and dry. No rash noted. No erythema. Psychiatric: He has a normal mood and affect. His behavior is normal. Judgment and thought content normal. Nursing note and vitals reviewed. Assessment/Plan: Diagnoses and all orders for this visit: Acute myeloid leukemia in remission (HCC) Thrombocytopenia (HCC) Pain due to onychomycosis of toenails of both feet Plan: 1. Itraconazole 200 mg #30 one daily for 3 months 2 refills 2. Office appointment January 2021 with CBC documented in this encounter Reason for Referral Specialty Diagnoses / Procedures Referred By Contlew t Referred To Contact Radiology Diagnoses Thrombocytopenia (HCC) Procedures US Abdomen Complete Pepe Loredo, [employer] [address] [phone] Referral ID Status Reason Start Date Expiration Date V isits Requested Visits Authorized [id number] Pending Review 02/07/2022 02/07/2023 1 1 Specialty Diagnoses / Procedures Referred By Contac t Referred To Contact Cardiology Diagnoses Acute myeloid leukemia in remission (HCC) Status post administration of cardiotoxic chemotherapy Pepe Loredo, [employer] [address] [place] [address] Erlin Alcaraz MD [address] [place] [address] Referral ID Status Reason Start Date Expiration Date Visits Requested Visits Authorized [id number] Authorized Specialty Services Required/Pat ient's Best Interest 03/01/2023 02/29/2024 1 1 Specialty Diagnoses / Procedures Referred By Contac t Referred To Contact Cardiology Diagnoses Acute myeloid leukemia in remission (HCC) Fatigue, unspecified type Procedures Echocardiogram complete Erlin Alcaraz MD [address] [phone] Referral ID Status Reason Start Date Expiration Date V isits Requested Visits Authorized [id number] New Request 02/04/2023 02/04/2024 1 1 Specialty Diagnoses / Procedures Referred By Contac t Referred To Contact Diagnoses Chronic hepatitis C without hepatic coma (HCC) Erlin Alcaraz MD [address] [phone] Bryson Horton MD [address] [place] [address] Referral ID Status Reason Start Date Expiration Date Visits Requested Visits Authorized [id number] Authorized Service Not Available Internally 02/04/2023 02/04/2024 1 1 Specialty Diagnoses / Procedures Referred By Contac t Referred To Contact Cardiology Diagnoses Status post administration of cardiotoxic chemotherapy Procedures ECG 12 lead Erlin Alcaraz MD [address] [place] [address] Referral ID Status Reason Start Date Expiration Date V isits Requested Visits Authorized [id number] Authorized 02/04/2023 02/04/2024 1 1 Chief Complaint and Reason for Visit Chief Complaint 6 M FU CP,HX CAD *MOODISPAW* CP,HX CAD *MOODISPAW* Reason for Visit Atherosclerotic hear t disease of [place] coronary artery without angina pectoris Essential hypertension History of radiofrequency ablation (RFA) procedure for cardiac arrhythmia Mixed hyperlipidemia Paroxysmal atrial fibrillation Stented coronary artery Chief Complaint Amb Documentation E ORDER 6 M FU Reason for Visit Atherosclerotic hear t disease of [place] coronary artery without angina pectoris Essential hypertension History of radiofrequency ablation (RFA) procedure for cardiac arrhythmia Mixed hyperlipidemia Paroxysmal atrial fibrillation Stented coronary artery Chief Complaint Admit Date 2 M FU November 11, 2024 9:1 8am INT LABS February 22, 2025 6:37a m 3 M FU February 22, 2025 9:18a m Reason for Visit Admit Date Essential hypertension November 11, 2024 9:18am History of radiofrequency ab lation (RFA) procedure for cardiac arrhythmia November 11, 2024 9:18am Mixed hyperlipidemia November 11, 2024 9: 18am Paroxysmal atrial fibrillation October 9:18am Stented coronary artery November 11, 2024 9:18am Essential hypertension February 22, 2025 9: 18am History of radiofrequency ab lation (RFA) procedure for cardiac arrhythmia February 22, 2025 9:18am Mixed hyperlipidemia February 22, 2025 9:18 am Paroxysmal atrial fibrillation February 22, 2025 9:18am Stented coronary artery February 22, 2025 9 :18am Additional Source Comments (unrecognized sect ion and content) No Status Records FoundNo Status Records FoundNo Status Records FoundNo Status Records FoundNo Status Records Found INFORMATION SOURCE (unrecogn ized section and content) DATE CREATED AUTHOR 03/12/2018 [facility] DATE CREATED AUTHOR AUTHOR'S ORGANIZ ATION 05/31/2024 [facility] DATE CREATED AUTHOR AUTHOR'S ORGANIZ ATION 12/07/2024 [facility] DATE CREATED AUTHOR AUTHOR'S ORGANIZ ATION 02/05/2025 [facility] DATE CREATED AUTHOR AUTHOR'S ORGANIZ ATION 02/11/2025 [facility] Reason for Visit (unrecogniz ed section and content) Reason Comments AML THROMBOCYTOPENIA Reason Comments ACUTE MYELOID LEUKEMIA Reason Comments AML 1 YR Reason Comments AML IN REMISSION 1 YR Reason Comments Thrombocytopenia 1 yr f/u Reason Comments Initial Visit (Intake) Patient c/o sever e fatigue/ elevated BP Specialty Diagnoses / Procedures Referred By Contac t Referred To Contact Cardiology Diagnoses Acute myeloid leukemia in remission (HCC) Status post administration of cardiotoxic chemotherapy Pepe Loredo CNP [address] [place] [address] Erlin Alcaraz MD [address] [phone] Referral ID Status Reason Start Date Expiration Date V isits Requested Visits Authorized [id number] Closed Specialty Services Required/Yohana ent's Best Interest 03/01/2023 02/29/2024 1 1 Reason Comments Thrombocytopenia Reason Comments Follow-up Pt states no concern s today Reason Comments Follow-up Pt states no new con cerns today Care Teams (unrecognized sec tion and content) Slip Cover Sewer Relationship Specialty Start Date End Date Perla Arroyo DO PCP - General Family Medicine 02/13/16 Pepe Loredo CNP [address] [phone] Nurse Practitioner Hematology/Oncology 02/02/21 Slip Cover Sewer Relationship Specialty Start Date End Date Perla Arroyo DO PCP - General Family Medicine 02/13/16 Pepe Loredo CNP [address] [place] [address] Nurse Practitioner Hematology/Oncology 02/02/21 Pepe Loredo [employer] [address] [phone] Nurse Practitioner Hematology/Oncology 01/31/22 Team Status: Active Member Role Status Dates Dr. Perla Arroyo , DO Family Provider Active Dr. Perla Arroyo , DO Primary Care Provider Active Team Status: Inactive Member Role Status Dates Dr. Perla Arroyo , DO Primary Care Provider, Referrin g Provider Active Dr. Tray Nathan MD Attending Provider Active Team Status: Active Member Role Status Dates Dr. Perla Arroyo , DO Primary Care Provider Active Barb Hamilton Attending Provider Active Team Status: Inactive Member Role Status Dates Dr. Perla Arroyo , DO Primary Care Provider Active Sampson Estrada [employer] Attending Provider Active Slip Cover Sewer Relationship Specialty Start Date End Date Perla Arroyo DO [facility] [place] [address] PCP - General Family Medicine 02/07/22 Pepe Loredo [employer] [address] [phone] Nurse Practitioner Hematology/Oncology 02/02/21 Pepe Loredo CNP [address] [place] [address] Nurse Practitioner Hematology/Oncology 01/31/22 Slip Cover Sewer Relationship Specialty Start Date End Date Perla Arroyo DO [address] [place] [address] PCP - General Family Medicine 02/07/22 Pepe Loredo [employer] [address] [place] [address] Nurse Practitioner Hematology/Oncology 02/02/21 Pepe Loredo [employer] [address] [place] [address] Nurse Practitioner Hematology/Oncology 01/31/22 Slip Cover Sewer Relationship Specialty Start Date End Date Perla Arroyo DO [address] [place] [id number] PCP - General Family Medicine 02/07/22 Pepe Loredo [employer] [address] [place] [address] Nurse Practitioner Hematology/Oncology 02/02/21 Pepe Loredo [employer] [address] [place] [address] Nurse Practitioner Hematology/Oncology 01/31/22 Slip Cover Sewer Relationship Specialty Start Date End Date Perla Arroyo DO [address] [place] [address] PCP - General Family Medicine 02/07/22 Pepe Loredo [employer] [address] [place] [address] Nurse Practitioner Hematology/Oncology 02/02/21 Pepe Loredo [employer] [address] [place] [address] Nurse Practitioner Hematology/Oncology 01/31/22 Slip Cover Sewer Relationship Specialty Start Date End Date Perla Arroyo DO [address] [place] [address] PCP - General Family Medicine 02/07/22 Pepe Loredo, [employer] [address] [place] [address] Nurse Practitioner Hematology/Oncology 02/02/21 Pepe Loredo CNP [address] [place] [address] Nurse Practitioner Hematology/Oncology 01/31/22 Slip Cover Sewer Relationship Specialty Start Date End Date Perla Arroyo DO [address] [place] [address] PCP - General Family Medicine 02/07/22 Pepe Loredo CNP [address] [place] [address] Nurse Practitioner Hematology/Oncology 02/02/21 Pepe Loredo CNP [address] [place] [address] Nurse Practitioner Hematology/Oncology 01/31/22 Slip Cover Sewer Relationship Specialty Start Date End Date Perla Arroyo DO [address] [place] [address] PCP - General Family Medicine 02/07/22 Pepe Loredo CNP [address] [place] [address] Nurse Practitioner Hematology/Oncology 02/02/21 Pepe Loredo [employer] [address] [place] [address] Nurse Practitioner Hematology/Oncology 01/31/22 Slip Cover Sewer Relationship Specialty Start Date End Date Perla Arroyo DO [address] [place] [address] PCP - General Family Medicine 02/07/22 FacundoPepe [employer] [address] [place], [place] [phone] Nurse Practitioner Hematology/Oncology 02/02/21 Pepe Loredo CNP [address] [place] [address] Nurse Practitioner Hematology/Oncology 01/31/22 Slip Cover Sewer Relationship Specialty Start Date End Date Perla Arroyo DO [address] [place] [address] PCP - General Family Medicine 02/07/22 LewellenPepe CNP [address] [place] [address] Nurse Practitioner Hematology/Oncology 02/02/21 FacundoPepe [employer] [address] [place] [address] Nurse Practitioner Hematology/Oncology 01/31/22 Team Status: Active Member Role/Relationship Status Dates Dr. Perla Arroyo DO Family Provider Active Dr. Perla Arroyo DO Primary Care Provider Active Team Status: Inactive Member Role/Relationship Status Dates Dr. Perla Arroyo DO Primary Care Provider Active Start: November 11, 2024 End: November 11, 2024 Dr. Perla Arroyo DO Referring Provider Active Start: November 11, 2024 End: November 11, 2024 Barb ZAMORANO, PA Attending Provider Active Start: November 11, 2024 End: November 11, 2024 Team Status: Active Member Role/Relationship Status Dates Dr. Perla Arroyo DO Primary Care Provider Active Start: February 22, 2025 Sampson Estrada [employer] Attending Provider Active S tart: February 22, 2025 Sampson Estrada [employer] Referring Provider Active S tart: February 22, 2025 Team Status: Inactive Member Role/Relationship Status Dates Dr. Perla Arroyo , Primary Care Provider Active Start: February 22, 2025 End: February 22, 2025 Dr. Perla Arroyo , Referring Provider Active Start: February 22, 2025 End: February 22, 2025 Suzie Shaver [employer] Attending Provider Active Start: February 22, 2025 End: February 22, 2025 Goals (unrecognized section and content) Goals may be documented in a n alternate sectionGoals may be documented in an alternate sectionGoals may be documented in an alternate section FOR RECORDS PERTAINING TO PATIENTS WHO ARE OR HAVE BEEN ENROLLED IN A CHEMICAL DEPENDENCY/SUBSTANCEABUSE PROGRAM, SOME INFORMATION MAY BE OMITTED. This clinical summary was aggregated from multiple sources. Caution should be exercised in using it in the provision of clinical care. This summary normalizes information from multiple sources, and as a consequence, information in this document may materially change the coding, format and clinical context of patient data. In addition, data may be omitted in some cases. CLINICAL DECISIONS SHOULD BE BASED ON THE PRIMARY CLINICAL RECORDS. [employer] provides no warranty or guarantee of the accuracy or completeness of information in this document.
== END | disposition home or self-care (01) ==
PROVIDERS: PCP Family Medicine; Referring Provider Nurse Practitioner Family; Visit Provider Nurse Practitioner Family
DX: E78.2 Mixed hyperlipidemia (principal)
CPT/HCPCS: 36415; 80061; 80076